=== PATIENT | female | born 1985 | race Caucasian/White ===

== ENCOUNTER 2021-07-17 17:00 | Emergency (ER) | payer OTHER, SELFPAY ==
[2021-07-17 17:10] VITALS: BP 116/71; PULSE 58; RESP 18; TEMP 37.1; O2SAT 100
--- NOTE | 2021-07-17 17:10 | ED.URI ---
HPI - URI/Sore Throat General Chief Complaint: Upper Respiratory Infection Stated Complaint: Sore Throat,Headache Time Seen by Provider: 07/17/21 17:10 Source: patient and RN notes reviewed Mode of arrival: ambulatory Limitations: no limitations History of Present Illness HPI Narrative: 36-year-old female presents to the [facility] with complaints of a headache for 2 days, headache 1 day. No treatment prior to arrival. States that she has 2 kids that are sick at home, they are negative rapid Covid, PCR's are pending. 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 Has felt feverish. Denies any cough, chest congestion, abdominal pain or chest pain MD elicited complaint: sore throat Related Data Home Medications Medication Instructions Recorded Confirmed sertraline 200 mg PO DAILY 07/17/21 07/17/21 Allergies Allergy/AdvReac Type Severity Reaction Status Date / Time guaifenesin Allergy Unknown Unknown Verified 07/17/21 17:24 brompheniramine AdvReac Unknown TACHYCARDIA Verified 07/17/21 17:24 phenylpropanolamine AdvReac Unknown TACHYCARDIA Verified 07/17/21 17:24 SPINAL TAP MEDICATION Allergy Unknown Itching Uncoded 07/17/21 17:24 Review of Systems Review of Systems: All systems reviewed & are unremarkable except as noted in HPI and below Constitutional: Constitutional: Reports no additional constitutional complaints Eyes: Eyes: Reports no additional eye complaints ENT: Reports as per HPI and Reports sore throat Cardiovascular: Cardiovascular: Reports no additional cardiovascular complaints and Denies chest pain Respiratory: Respiratory: Reports no additional respiratory complaints, Denies cough and Denies dyspnea Gastrointestinal: Gastrointestinal: Reports no additional gastrointestinal complaints and Denies abdominal pain Musculoskeletal: Musculoskeletal: Reports no additional musculoskeletal complaints Integumentary/Breasts: Skin/Breast: Reports system reviewed and no additional complaints, except as docu Neurologic: Reports as per HPI and Reports headache(s) Psychiatric: Psychiatric: Reports no additional psychiatric complaints Allergic/Immunologic: Allergic/Immunologic: Reports no additional allergic/immunologic complaints [facility] Past Medical History Medical History (Updated 07/17/21 @ 19:51 by Payton Quach) No significant medical problems Surgical History Surgical History (Updated 07/17/21 @ 19:49 by Payton Quach) Hx of appendectomy Family History Family History Other Hypertension Social History Social History (Updated 07/17/21 @ 19:49 by Payton Quach) Smoking status: Current every day smoker Alcohol intake: current Substance use: never Living arrangements: with family Occupation/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 There is no relevant family history pertinent to the patient complaint. Exam Const: General: healthy appearing, no acute distress and alert Nutritional Appearance: well nourished Orientation/consciousness: patient oriented x3 Limitations: no limitations HENMT: Head: normal to inspection Ears: external ears normal, TM's normal bilaterally and EAC's normal Eyes: Conjunctivae: conjunctivae normal Pupils: Equal, round and reactive pupils present Neck: Neck: normal visual inspection, no lymphadenopathy and no meningeal signs Chest: Chest palpation & inspection: normal inspection of the chest Resp: Effort & Inspection: normal respiratory effort and no use of accessory muscles Auscultation: clear to auscultation bilaterally, no crackles, no rales, no rhonchi and no wheezes Cardio: Rate: regular rate Rhythm: regular rhythm : General: Yes no CV
[2021-07-19 01:27] LABS: SARS-CoV-2 RNA PCR Negative
== END 2021-07-17 17:50 | disposition home or self-care (01) ==
PROVIDERS: Emergency Provider Nurse Practitioner; PCP Family Medicine
DX: J06.9 Acute upper respiratory infection, unspecified (principal); J02.9 Acute pharyngitis, unspecified; Z20.822 Contact with and (suspected) exposure to COVID-19; F17.200 Nicotine dependence, unspecified, uncomplicated
CPT/HCPCS: 87081; 87426; 87880; 99213; C9803; G0463; U0003; U0005

== ENCOUNTER 2021-10-22 13:08 | Emergency (ER) | payer OTHER, SELFPAY ==
--- NOTE | ~2021-10-22 | XR_ITS ---
EXAMINATION: XR chest 2V DATE: 10/22/2021 15:06 INDICATION: Cough and shortness of breath. COVID-19 pneumonia. TECHNIQUE: Frontal and lateral views of the chest were obtained. COMPARISON: CT abdomen and pelvis 04/21/2018 FINDINGS: The chest demonstrates clear lungs without pneumonia, pleural effusion, or pneumothorax. Th e heart size is normal. There are surgical clips in the abdomen. IMPRESSION: 1. No acute cardiopulmonary disease. Reviewed, dictated and finalized at location A. GE CLIPPER
[2021-10-22 13:59] VITALS: BP 120/76; PULSE 64; RESP 20; TEMP 36.7; O2SAT 100
[2021-10-22 14:07] VITALS: PULSE 64; RESP 20; O2SAT 100
--- NOTE | 2021-10-22 15:05 | ED.GENADULT ---
HPI - General Adult General Chief complaint: Upper Respiratory Infection Stated complaint: fatigue,cough Source: patient Mode of arrival: ambulatory Limitations: no limitations History of Present Illness HPI narrative: Patient presents for evaluation of respiratory symptoms since 10/20/2021. Symptoms include nonproductive cough, sensation that she cannot breath, shortness of breath and fatigue. She denies any fever, chills, nausea, vomiting. She has experienced diarrhea. Her has some sinus symptoms but those resolved without intervention. She has received COVID vaccination. 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 She smokes 1/4 ppd. No additional complaints or concerns. Related Data Home Medications Medication Instructions Recorded Confirmed sertraline 200 mg PO DAILY 07/17/21 10/22/21 Allergies Allergy/AdvReac Type Severity Reaction Status Date / Time guaifenesin Allergy Unknown Unknown Verified 10/22/21 13:57 brompheniramine AdvReac Unknown TACHYCARDIA Verified 10/22/21 13:57 phenylpropanolamine AdvReac Unknown TACHYCARDIA Verified 10/22/21 13:57 SPINAL TAP MEDICATION Allergy Unknown Itching Uncoded 07/17/21 17:24 Review of Systems Review of Systems: CONSTITUTIONAL: Fatigue. Denies fever, chills, sweating EYES: Denies visual changes, redness, or discharge. ENT: Denies rhinorrhea, congestion, sore throat, or otalgia. CARDIOVASCULAR: Denies chest pain, palpitations, or edema. RESPIRATORY: Reports cough, shortness of breath and sensation that she cannot catch a deep breath GASTROINTESTINAL: Reports diarrhea. Denies abdominal pain, nausea, vomiting GENITOURINARY: Denies dysuria or hematuria. SKIN: Denies rash or itching. MUSCULOSKELETAL: Denies back pain, joint pain, or myalgia. NEUROLOGIC: Denies headache, numbness, dizziness, or weakness. PSYCHIATRIC: Denies anxiety or depression. 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 HEAD: Normocephalic, atraumatic. EYES: PERRLA and EOMI. ENT: Nares clear, no rhinorrhea or epistaxis. Mucous membranes moist. Oropharynx without tonsillar hypertrophy exudate or other lesions. Bilateral TMs pearly weber nonbulging NECK: Supple. No adenopathy or masses. No carotid bruits or JVD CHEST: Clear to auscultation. No respiratory distress. No wheezes rales or rhonchi HEART: Regular rate and rhythm. No murmur heard. Normal peripheral pulses. ABDOMEN: Soft, nontender, nondistended, normal active bowel sounds. EXTREMITIES: Normal range of motion. No edema. SKIN: Warm, dry, no rash. NEURO: No focal deficits. Alert and oriented x3. PSYCH: Normal mood and affect. Course Course Emergency Course: This is a 36-year-old female present complaints of respiratory symptoms. Covid was positive. Chest x-ray was negative. Saturations are 98% to 100% on room air. Heart rate was in the 60s. Patient will purchase pulse oximeter and monitor heart rate and O2 sats at home. She did report shortness of breath and was concerned about this. I did offer to transfer her to the ER, which she declined. I think it would be unlikely that
== END 2021-10-22 15:38 | disposition home or self-care (01) ==
PROVIDERS: Emergency Provider Nurse Practitioner; PCP Family Medicine
DX: U07.1 COVID-19 (principal); F17.200 Nicotine dependence, unspecified, uncomplicated
CPT/HCPCS: 71046; 87426; 87804; 99213; C9803; G0463

== ENCOUNTER 2022-02-20 17:23 | Emergency (ER) | payer OTHER, SELFPAY ==
--- NOTE | 2022-02-20 17:27 | ED.URI ---
HPI - URI/Sore Throat General Chief Complaint: Upper Respiratory Infection Stated Complaint: CONGESTION/SORE THROAT/STREP EXPOSURE Time Seen by Provider: 02/20/22 17:28 Source: patient, family, RN notes reviewed and old records reviewed Mode of arrival: ambulatory Limitations: no limitations History of Present Illness HPI Narrative: 36-year-old female presents to the [facility] with complaints of headache, sinus pain and pressure, bilateral ear pressure, dry cough, nasal congestion for the last 1-1/2 weeks. Called her primary care provider was prescribed amoxicillin on February 14, 6 days ago, patient reports that she is just not getting any better. Has tried taking Zyrtec, Tylenol and using a [place] pot with minimal relief. MD elicited complaint: cough, sore throat, rhinorrhea, nasal congestion and sinus pain Pertinent past history: sinusitis Related Data Home Medications Medication Instructions Recorded Confirmed sertraline 200 mg PO DAILY 07/17/21 02/20/22 amoxicillin 02/20/22 02/20/22 Allergies Allergy/AdvReac Type Severity Reaction Status Date / Time guaifenesin Allergy Unknown Unknown Verified 02/20/22 17:33 brompheniramine AdvReac Unknown TACHYCARDIA Verified 02/20/22 17:33 phenylpropanolamine AdvReac Unknown TACHYCARDIA Verified 02/20/22 17:33 SPINAL TAP MEDICATION Allergy Unknown Itching Uncoded 02/20/22 17:33 Review of Systems Review of Systems: All systems reviewed & are unremarkable except as noted in HPI and below Constitutional: Constitutional: Reports no additional constitutional complaints, Denies chills, Denies fever(s) and Denies headache(s) Eyes: Eyes: Reports no additional eye complaints ENT: Reports as per HPI, Denies vertigo, Denies dizziness, Denies headache(s), Reports nasal congestion and Reports sore throat Cardiovascular: Cardiovascular: Reports no additional cardiovascular complaints, Denies chest pain, Denies syncope, Denies rapid heart rate and Denies dyspnea Respiratory: Respiratory: Reports as per HPI, Reports cough (Dry), Denies dyspnea and Denies wheezing Gastrointestinal: Gastrointestinal: Reports no additional gastrointestinal complaints, Denies abdominal pain, Denies diarrhea, Denies nausea and Denies vomiting Musculoskeletal: Musculoskeletal: Reports no additional musculoskeletal complaints and Denies numbness Integumentary/Breasts: Skin/Breast: Reports system reviewed and no additional complaints, except as docu Neurologic: Reports system reviewed and no additional complaints, except as documented, Denies vertigo, Denies dizziness, Denies syncope, Denies headache(s), Denies focal weakness and Denies numbness Psychiatric: Psychiatric: Reports no additional psychiatric complaints Allergic/Immunologic: Allergic/Immunologic: Reports no additional allergic/immunologic complaints and Denies wheezing PMFSH Past Medical History Medical History No significant medical problems Surgical History Surgical History H/O gynecological procedure Laprascopic endometriosis X3 D&C History of cholecystectomy History of tubal ligation Hx of appendectomy Family History Family History Other Diabetes mellitus Hypertension Social History Social History Smoking status: Current every day smoker Alcohol intake: current Substance use: never 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 There is no relevant family history pertinent to the patient complaint. Exam Const: Gen
[2022-02-20 17:29] VITALS: BP 129/84; PULSE 71; RESP 12; TEMP 36.5; O2SAT 100
== END 2022-02-20 18:00 | disposition home or self-care (01) ==
PROVIDERS: Emergency Provider Nurse Practitioner; PCP Family Medicine
DX: J32.9 Chronic sinusitis, unspecified (principal); F17.200 Nicotine dependence, unspecified, uncomplicated
CPT/HCPCS: 87081; 87804; 87880; 99213; G0463

== ENCOUNTER 2022-09-02 09:40 | Emergency (ER) | payer OTHER, SELFPAY ==
--- NOTE | ~2022-09-02 | XR_ITS ---
EXAMINATION: XR chest 2V DATE: 09/02/2022 10:08 INDICATION: Shortness of breath TECHNIQUE: PA and lateral views of the chest are obtained. COMPARISON: 10/22/2021 FINDINGS: The lungs are free of acute opacities. No pleural effusion or pneumothorax. The cardiomedia stinal silhouette is normal. There is mild thoracic spondylosis. Surgical clips in the right upper qu adrant are likely from prior cholecystectomy. IMPRESSION: 1. No acute cardiopulmonary abnormality. Reviewed, dictated and finalized at location A. THERAPIST
--- NOTE | 2022-09-02 09:44 | ED.URI ---
HPI - URI/Sore Throat General Chief Complaint: Upper Respiratory Infection Stated Complaint: cough, sore thoat, chest pain, fever Time Seen by Provider: 09/02/22 09:44 Source: patient Mode of arrival: ambulatory Limitations: no limitations History of Present Illness HPI Narrative: Ms. Argueta is a 37-year-old female patient presenting to clinic today with complaints of chest pain, shortness of breath, sore throat, cough, and fever x2 days. She reports that a lot of her kids and class has been dropping like flies. 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 MD elicited complaint: fever, cough, sore throat, nasal congestion and other (Chest pain) Related Data Home Medications Medication Instructions Recorded Confirmed sertraline 100 mg tablet 200 mg PO DAILY 07/17/21 02/21/22 phentermine 37.5 mg tablet mg 09/02/22 topiramate 25 mg tablet mg 09/02/22 Allergies Allergy/AdvReac Type Severity Reaction Status Date / Time guaifenesin Allergy Unknown Unknown Verified 02/21/22 10:34 brompheniramine AdvReac Unknown TACHYCARDIA Verified 02/21/22 10:34 phenylpropanolamine AdvReac Unknown TACHYCARDIA Verified 02/21/22 10:34 SPINAL TAP MEDICATION Allergy Unknown Itching Uncoded 02/21/22 10:34 Review of Systems Review of Systems: Pertinent positives per HPI. Patient denies any rash, headache, visual changes, dizziness, palpitations, nausea, vomiting, diarrhea, constipation, abdominal pain, or any urinary issues. 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 There is no relevant family history pertinent to the patient complaint. Exam Narrative: General: Well-developed, well nourished, in no apparent distress Head: Normocephalic, atraumatic Eyes: Pupils equally round and reactive to light bilaterally, EOM intact, sclera and conjunctive clear, no discharge, lids normal Ears: TMs intact and congested, ear canals clear, no drainage, grossly hearing normal. Nose: Nares patent, clear nasal discharge, no inflammation, no sinus tenderness. Mouth: Oral pharynx without lesions or masses, good dentition, MMM. Oropharynx red Neck: Supple, trachea midline, no enlargement of anterior or posterior cervical nodes, no thyroid masses or goiter palpable. Cardio: Regular rate and rhythm, s1 and s2 normal, no murmur appreciated. Resp: Clear to auscultation bilaterally, no rhonchi, rales, wheezing or rubs Course Course Emergency Course: Portions of this record may have been created with voice recognition software. Level of Care: Express Care Visit Vital Signs Vital signs: Vital Signs Temperature 37.2 C 09/02/22 09:57 Pulse Rate 106 H 09/02/22 09:57 Respiratory Rate 16 09/02/22 09:57 Blood Pressure 108/89 09/02/22 09:57 Pulse Oximetry 98 09/02/22 09:57 Temperature 37.2 C 09/02/22 09:57 Pulse Rate 106 H 09/02/22 09:57 Respiratory Rate 16 09/02/22 09:57 Blood Pressure 108/89 09/02/22 09:57 Pulse Oximetry 98 09/02/22 09:57 Vital signs reviewed
[2022-09-02 09:57] VITALS: BP 108/89; PULSE 106; RESP 16; TEMP 37.2; O2SAT 98
== END 2022-09-02 10:39 | disposition home or self-care (01) ==
PROVIDERS: Emergency Provider Nurse Practitioner Family; PCP Family Medicine
DX: J10.1 Influenza due to other identified influenza virus with other respiratory manifestations (principal)
CPT/HCPCS: 71046; 87804; 99213; G0463

== ENCOUNTER 2023-11-19 08:31 | Outpatient (CLI) | payer OTHER, SELFPAY ==
--- NOTE | 2023-11-20 17:34 | WPDHOMESLEEP ---
Sleep Study - Home Unattended Date of Study: 11/19/23 Ordering Provider: Magdiel Patrick MD Interpreting Provider: Opal Polo MD Home Sleep Study Type: Watch PAT Height: 1.59 m Weight: 79.379 kg Body Mass Index: 31.5 Neck Circumference (inches): 15 [place]: 14 Reason for Sleep Study Hypersomnolence; fragmented sleep, waking at night, sleepiness in the day Family history of sleep apnea; her father uses CPAP Sleep History Pili Argueta is a 38-year-old woman with poor sleep since giving to her 7-year-old daughter. She has hypertension, depression, and acid reflux. She has not been able to sleep through the night, at best gets 5 hours of sleep. She rarely awakens from sleep short of breath. She constantly wakes at night with heartburn, belching or coughing.??She constantly snores,and constantly snores loudly enough that others complain. She constantly has trouble sleeping when she has a cold. She rarely wakes up gasping for breath during the night. She constantly has breathing problems at night. She frequently sweats excessively at night. She rarely notices her heart pounding or beating irregularly during the night. She frequently falls asleep during the day. She frequently falls asleep involuntarily, occasionally falls asleep while driving. She occasionally experiences loss of muscle tone with strong emotion. She frequently feels paralyzed on waking or falling asleep. She rarely experiences vivid dreams upon waking or falling asleep. She never feels afraid of going to sleep. She rarely has nightmares. She frequently recalls her dreams. She constantly has thoughts racing through her mind. She occasionally feels sad or depressed. She constantly feels anxiety. She rarely notices parts of her body jerk. She rarely kicks during the night. She rarely feels crawling or aching feelings in her legs. She rarely feels leg pain at night. She rarely has morning jaw pain, and never grinds her teeth at night. She frequently feels bothered by pain during the day, is rarely awakened by pain during the night. She occasionally wakes up feeling stiff in the morning, occasionally wakes feeling sore or achy in the morning. She frequently awakens with pain in her neck, spine, or joints. 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 If she wakes at night, she lets the dog outside, washes dishes, packs lunches, switches laundry, or performs other housework. She also goes to urinate at night. She wakes at 6:00 a.m.. On weekends, bedtime is later, 11:00, waking later, 9:00 a.m. She takes naps on weekends. She is drowsy for 3 hours after waking. She feels better in the evenings compared to other times of day. She gained 15-20 lb in the last year. Habits:??Tobacco: quit cigarettes 7 months ago Caffeine: 1 serving per day. Alcohol: 3-4 servings per week Recreational substances: none PMFSH Past Medical History Medical History (Updated 11/20/23 @ 18:21 by Opal Polo MD) Anxiety and depression Chronic pain hips, back, arthritis Heart & renal disease, hypertensive benign with chronic kidney disease Hypertension Pre-diabetes Surgical History Surgical History H/O gynecological procedure Laprascopic endometriosis X3 D&C History of cholecystectomy History of tubal ligation Hx of appendectomy Family History Family History Father Diabetes mellitus Hypertension Heart problem Grandparent AA (alcohol abuse) Heart problem Grandparent Colon abnormality Daughter Asthma, Onset Age: 20 Daughter Asthma Social History Social History (Updated 11/20/23 @ 18:09 by Opal Polo MD) Smoking status: Former smoker Alcohol intake: current
[2023-11-20 17:37] VITALS: BMI 31.5
== END 2023-11-20 07:30 | disposition home or self-care (01) ==
LOC: ANHCSM 08:34
PROVIDERS: PCP Emergency Medicine; Visit Provider Emergency Medicine
DX: G47.33 Obstructive sleep apnea (adult) (pediatric) (principal); G47.10 Hypersomnia, unspecified
CPT/HCPCS: 95800

== ENCOUNTER 2024-01-08 07:30 | Outpatient (RCR) | payer OTHER, SELFPAY ==
--- NOTE | 2023-11-21 08:34 | OTOPEVAL1 ---
Assessment and note entered by Swapnil Fitzgerald, EDGAR/Leroy, CHT Evaluation Information Assessment Status Evaluation Diagnosis Bilateral carpal tunnel syndrome Subjective Information Patient reports experiencing carpal tunnel symptoms for years . She is right handed. Reports right is worse than left. Reports difficulties with ADLs and household tasks, such as pushing a vacuum. Reports pain and parethesias are intermittent. 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 Assessment OT Clinical Summary Patient referred to OT with dx of bilateral carpal tunnel syndrome. She presents with preserved sensation in the median nerve distribution of bilateral hands. Gross electric blanket wirer strength is WFL. Pinch strengths are impaired. No muscle wasting noted in the thenar eminence. She reports intermittent pain and paresthesia in the hands that restrict hand use during ADLs, household tasks, and work. Skilled OT indicated for education on nerve compression causes and treatment, splinting, modalities, manual therapy, therapeutic exercise, and HEP instruction to facilitate reduced pain and improved functional strength of bilateral hands. Plan of Care Interventions Therapeutic Exercise,Manual Therapy,Therapeutic Activities,Hot Pack/Cold Pack,Check Out for Orthotic,Ultrasound,Paraffin OT Services Indicated Yes Treatment Frequency and 2x/week for 8 visits Duration These treatments will address the objective and functional deficits as defined above. The patient will be advanced safely and appropriately in order for the patient to progress towards his/her prior level of function. Additional exercises will be introduced and as well as a comprehensive home exercise program upon discharge, if needed, ?to ensure carryover of functional gains achieved in the clinic. This treatment plan has been reviewed and agreement upon by the patient.
--- NOTE | 2023-11-21 08:35 | OPREHPOC ---
Outpatient Therapy Plan of Care This is a Multidisciplinary Plan of Care that may contain components documented by all disciplines (PT, OT, and ST.) OT Problem 1 OT Problem #1 Knowledge Deficit OT Goal 1 Goal 1. Patient to be independent with instructed materials. 2. Patient to be complaint with splint wearing schedule. Target Visit 8 OT Problem 2 OT Problem #2 Pain OT Goal 1 Goal 1. Patient to report reduced bilateral hand pain during ADLs to 2/10 or less at worst . 2. Be able to complete putty HEP without reports of pain or paresthesia. Target Visit 8 OT Problem 3 OT Problem #3 Impaired Strength OT Goal 1 Goal 1. Increase palmar pinch strengths of the right hand to 8 lbs. OT Problem 4 OT Problem #4 Impaired Flexibility OT Goal 1 Goal 1. Be able to complete Reverse Phalen's test without onset of paresthesia. Target Visit 8
--- NOTE | 2023-12-09 10:13 | PCPTNOTE ---
Patient Cancelled today's evaluation secondary to sick Children.
--- NOTE | 2023-12-11 13:23 | PCOTNOTE ---
Patient did not show up for scheduled appointment this date. Called patient and she did not answer.
--- NOTE | 2023-12-18 07:56 | PCOTNOTE ---
Patient did not show up for scheduled appointment this date. Called patient who reports she didn't get a reminder text about the appointment. Informed her that we have never done that. Reminded her of her appointment Saturday.
--- NOTE | 2023-12-23 07:57 | PCOTNOTE ---
Patient did not show up for scheduled appointment this date. Called patient who said she is in [place] and didn't realize she had an appointment. Informed her that she has violated the attendance policy and that we are going to cancel her remaining appointments. She asked if we could keep her re-evaluation to discuss options. Agreed to do that.
--- NOTE | 2023-12-26 08:27 | OTOPPROG ---
Assessment and note entered by EDGAR Cao/Leroy, CHT Progress Update 12/26/23 Diagnosis Bilateral carpal tunnel syndrome Subjective Information Patient reports improvement in her symptoms when she is consistent with her exercises. Continues to report intermittent pain and paresthesia in bilateral hands, reporting not a huge change in the intensity or frequency of her symptoms. She reports she is unable to wear the immobilizers at night, feeling like wearing both are suffocating and she can't get comfortable. Patient unfortunately has not had the best therapy attendance. Discussed this with the patient today that optimal outcomes occur if she's able to be consistent. She reports she is worried about getting a huge bill at the end of this, but understands that her symptoms will not improve without intervention. We agreed to schedule 3 weeks of visits. Also discussed modifying her immobilizer schedule, alternating the braces each night. Also advised to begin wearing them during the day as much as she can to force her to rest the wrists. Assessment OT Clinical Summary Patient referred to OT with dx of bilateral carpal tunnel syndrome. She presents today for reassessment. She unfortunately has only attended therapy twice in the last month, thus there has been minimal progress. She does note that when she does her HEP she has reduced symptoms that day, but she is very inconsistent and noncompliant with wearing her immobilizers. Discussed at length the importance of compliance with therapy and she agrees she needs to do better. Continued skilled OT indicated for education on nerve compression causes and treatment, splinting, modalities, manual therapy, therapeutic exercise, and HEP instruction to facilitate reduced pain and improved functional strength of bilateral hands. Plan of Care Interventions Therapeutic Exercise,Manual Therapy,Therapeutic Activities,Hot Pack/Cold Pack,Check Out for Orthotic/Pr,Ultrasound,Paraffin OT Services Indicated Yes Treatment Frequency and 2x/week for 6 visits Duration These treatments will address the objective and functional deficits as defined above. The patient will be advanced safely and appropriately in order for the patient to progress towards his/her prior level of function. Additional exercises will be introduced and as well as a comprehensive home exercise program upon discharge, if needed, ?to en
--- NOTE | 2023-12-26 08:27 | OPREHPOC ---
Outpatient Therapy Plan of Care This is a Multidisciplinary Plan of Care that may contain components documented by all disciplines (PT, OT, and ST.) OT Problem 1 OT Problem #1 Knowledge Deficit OT Goal 1 Goal 1. Patient to be independent with instructed materials. 2. Patient to be complaint with splint wearing schedule. ---OT POC UPDATE 12/26/23--- 1. Met 2. Not met, continue to enforce schedule and emphasize importance Target Visit 8 OT Problem 2 OT Problem #2 Pain OT Goal 1 Goal 1. Patient to report reduced bilateral hand pain during ADLs to 2/10 or less at worst . 2. Be able to complete putty HEP without reports of pain or paresthesia. ---OT POC UPDATE 12/26/23--- 1. Not met 2. Not addressed due to lack of attendance Target Visit 8 OT Problem 3 OT Problem #3 Impaired Strength OT Goal 1 Goal 1. Increase palmar pinch strengths of the right hand to 8 lbs. ---OT POC UPDATE 12/26/23--- 1. Not met Target Visit 8 OT Problem 4 OT Problem #4 Impaired Flexibility OT Goal 1 Goal 1. Be able to complete Reverse Phalen's test without onset of paresthesia. ---OT POC UPDATE 12/26/23--- 1. Not met Target Visit 8
--- NOTE | 2024-02-17 11:34 | OTOPDC ---
Assessment and note entered by Swapnil Fitzgerald, OTR/L, CHT OT D/C 02/17/24 OT Clinical Summary Patient was being seen at our clinic for dx of bilateral carpal tunnel syndrome. Unfortunately attendance has been an issue since beginning therapy. She has not been seen since 01/08/24 and has not shown for 2 appointments after that. We are unable to get a hold of her. Overall her progress was limited due to poor attendance and compliance. D/C OT at this time.
== END 2024-02-17 13:05 | disposition home or self-care (01) ==
LOC: ANHOT 07:30
PROVIDERS: PCP Emergency Medicine; Visit Provider Emergency Medicine
DX: G56.03 Carpal tunnel syndrome, bilateral upper limbs (principal)
CPT/HCPCS: 97018; 97035; 97110; 97140; 97165; 99199

== ENCOUNTER 2024-03-26 14:54 | Outpatient (CLI) | payer OTHER, SELFPAY ==
[2024-03-27 03:12] LABS: Thyroid Stimulating Hormone Reflex 0.958 uIU/mL (0.465-4.68)
== END 2024-03-26 14:55 | disposition home or self-care (01) ==
LOC: ANHGOSHLAB 14:54
PROVIDERS: PCP Emergency Medicine; Visit Provider Emergency Medicine
DX: R53.82 Chronic fatigue, unspecified (principal)
CPT/HCPCS: 36415; 84443

== ENCOUNTER 2024-10-30 17:47 | Emergency (ER) | payer BC, SELFPAY ==
--- NOTE | 2024-10-30 18:08 | ED.URI ---
HPI - URI/Sore Throat General Chief Complaint: Upper Respiratory Infection Stated Complaint: cough,congestion Time Seen by Provider: 10/30/24 18:07 Source: patient Mode of arrival: ambulatory Limitations: no limitations History of Present Illness HPI Narrative: Pili is a 39-year-old female patient presenting to the clinic today with complaints of cough, sinus congestion, sore throat, and chest congestion x2 days. Is coughing up green sputum. Denies any known fever, chills, or body aches. 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 MD elicited complaint: sore throat and nasal congestion Related Data Home Medications ?Medication ?Instructions ?Recorded ?Confirmed ?Last Taken ?Type phentermine 37.5 mg tablet mg 10/30/24 Unknown History Allergies Allergy/AdvReac Type Severity Reaction Status Date / Time guaifenesin Allergy Unknown Unknown Verified 03/26/24 14:14 brompheniramine AdvReac Unknown TACHYCARDIA Verified 03/26/24 14:14 phenylpropanolamine AdvReac Unknown TACHYCARDIA Verified 03/26/24 14:14 SPINAL TAP MEDICATION Allergy Unknown Itching Uncoded 03/26/24 14:14 Review of Systems Review of Systems: Pertinent positives per HPI. Patient denies any fever, chills, rash, headache, visual changes, dizziness, chest pain, palpitations, nausea, vomiting, diarrhea, constipation, abdominal pain, or any urinary issues. [facility] Past Medical History Medical History Anxiety and depression Hypertension Chronic pain hips, back, arthritis Heart & renal disease, hypertensive benign with chronic kidney disease Pre-diabetes Surgical History Surgical History H/O gynecological procedure Laprascopic endometriosis X3 D&C History of cholecystectomy History of tubal ligation Hx of appendectomy Family History Family History Father Diabetes mellitus Hypertension Heart problem Grandparent AA (alcohol abuse) Heart problem Grandparent Colon abnormality Daughter Asthma, Onset Age: 20 Daughter Asthma Social History Social History Smoking status: Former smoker Alcohol intake: current Alcohol use details: 3-4 servings per week Substance use: never Do You Feel Safe in your Home?: Yes Lack of Transportation: No Lack of Food: Never True Current Housing: I Have Housing Concerned About Future Housing: No Difficulty Paying Gas/Electric Bills: No Difficulty Paying for Meds: No Currently Unemployed: No Education: Master's Degree or Higher Living arrangements: with family Occupation/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 There is no relevant family history pertinent to the patient complaint. Exam Narrative: General: Well-developed, well nourished, in no apparent distress Head: Normocephalic, atraumatic Eyes: Pupils equally round and reactive to light bilaterally, EOM intact, sclera and conjunctive clear, no discharge, lids normal Ears: TMs intact and congested, ear canals clear, no drainage, grossly hearing normal. Nose: Nares patent, clear nasal discharge, mild inflammation, no sinus tenderness. Mouth: Oral pharynx red without lesions or masses, good dentition, MMM. Postnasal drip Neck: Supple, trachea midline, no enlargement of anterior or posterior cervical nodes, no thyroid masses or goiter palpable. Cardio: Regular rate and rhythm, s1 and s2 normal, no murmur appreciated. Resp: Clear to auscultation bilaterally, no rhonchi, rales, wheezing or rubs Course Course Emergency Course: Portions of this record may have been created with voice recognition software. Level of Care: Express Care Visit Vital Signs Vital signs: Vital signs reviewed MDM - URI/Sore Throat MDM Narrative Medical decision making narrative: At the time of visit patient is resting comfortably on the exam table. Patient appears to be nontoxic. Labs: COVID, influenza, and strep test were all negative in the clinic today. We will send strep for culture. Plan: I suspect patient has URI with cough and congestion/pharyngitis. Supportive measures were discussed with the patient and they voiced understanding discharge instructions and agrees to treatment plan. Return precautions reviewed Differential Diagnosis Differential diagnosis: Likely upper respiratory infection, otitis media, sinusitis, viral infection, bronchitis, influenza, pharyngitis and other (COVID) Discharge Plan Discharge Clinical Impression: URI with cough and congestion, Pharyngitis Patient Disposition: Home, Self-Care Condition: Stable Instructions: Antibiotic Form, Pharyngitis (ED), Viral Syndrome (ED), Cold Symptoms (ED) Additional Instructions: COVID, influenza, and strep test were all negative in the clinic today. We will send strep for culture if this comes back positive we will contact you and place you on antibiotics at that time. Take prescription medications only as prescribed-albuterol inhaler and prednisone Increase fluids and stay well hydrated Tylenol/motrin for pain/fever Flonase and OTC antihistamines as directed Vicks vapor rub to open sinuses Sinus rinses for congestion Cepacol spray, cough drops, throat lozenges, warm tea with honey/lemon, gargle salt water to soothe throat BRAT diet for diarrhea Clear liquids x 24 hours then advance as tolerated for nausea/vomiting Go to the ED if you develop a worsening in your condition- high fever not controlled by Tylenol or Motrin, dehydration, weakness, lethargy, shortness of breath, or chest pain. Follow up with your PCP in 3-5 days if symptoms persist. Patient Language: Syriac Prescriptions: New prednisone 20 mg tablet 40 mg PO DAILY 5 Days Qty: 10 0RF albuterol sulfate 90 mcg/actuation HFA aerosol inhaler 2 puff inhalation Q4-6H PRN (Reason: shortness of breath or wheezing) 30 Days Qty: 8.5 0RF No Action phentermine 37.5 mg tablet sertraline 100 mg tablet 200 mg PO QHS Qty: 180 0RF Rx Instructions: LAST REFILL, NEEDS APPOINTMENT Follow-up/Referrals: UNKNOWN,DOCTOR [Non-Staff] - Time of Disposition: 18:56 Quality NIHSS Nursing Documentation ED NIHSS nursing documentation: reviewed/agree
[2024-10-30 18:22] VITALS: BP 131/80; PULSE 85; RESP 18; TEMP 37.1; O2SAT 99
[2024-10-30 19:33] LABS: EDCOVIDSCREEN Negative (Negative); EDINFLUASCREEN Negative (Negative); EDINFLUBSCREEN Negative (Negative); EDSTREPNEGPOS1 Negative (Negative)
== END 2024-10-30 19:05 | disposition home or self-care (01) ==
PROVIDERS: Emergency Provider Nurse Practitioner Family; PCP Emergency Medicine
DX: J06.9 Acute upper respiratory infection, unspecified (principal); I10 Essential (primary) hypertension; Z87.891 Personal history of nicotine dependence; Z20.822 Contact with and (suspected) exposure to COVID-19
CPT/HCPCS: 87081; 87426; 87804; 87880; 99213; G0463

== ENCOUNTER 2024-11-06 08:28 | Inpatient (IN) | payer BC, SELFPAY ==
--- NOTE | ~2024-11-06 | XR_ITS ---
EXAMINATION: XR abdomen/kub 1V DATE: 11/07/2024 07:31 INDICATION: Left ureteral stone. TECHNIQUE: A supine view of the abdomen on 2 radiographs was obtained. COMPARISON: CT abdomen and pelvis 11/06/2024 FINDINGS: There are no dilated loops of bowel. There is a left internal ureteral stent in expected po sition. There is a 4 mm stone in proximal left ureter. There are phleboliths in left pelvis. IMPRESSION: 1. 4 mm stone in proximal left ureter with left internal ureteral stent in expected position. Reviewed, dictated and finalized at location A. ACE FEEDER IMPRESSION: 1. 4 mm stone in proximal left ureter with left internal ureteral stent in expe cted position.
--- NOTE | ~2024-11-06 | CT_ITS ---
CT abdomen pelvis w con Ordering provider: Hayes Klein PA-C History: 39 years Female with . L abd pain, recent ureter stent . Comparison: None. Technique: CT abdomen and pelvis with IV and without oral contrast. Automated exposure control and it erative reconstruction technique were employed. The dose-length product was 566.43 mGy-cm. None. MLO Omnipaque 350 was given IV. Findings: VISUALIZED LOWER CHEST: Dependent atelectatic changes. UPPER ABDOMINAL ORGANS: Liver: Fat infiltration. Hepatomegaly. Gallbladder: Status post cholecystectomy. Spleen: Normal. Stomach/duodenum: Normal. Pancreas: Normal. Adrenals: Normal. Kidneys: Multiple small right cysts. Left hydronephrotic changes with double-J stent. Stone in the le ft kidney upper pole. Tiny cysts in the left kidney. Stone in the left upper ureter. PELVIC ORGANS: The bladder is normal. BOWEL AND MESENTERY: Colon: No evidence of diverticulitis. Fecal material is loaded in the colon suggestive of constipatio n. Appendix is not demonstrated. Small Bowel: Normal. No obstruction. Peritoneum/mesentery: No free air or free fluid. No mesenteric lymphadenopathy. RETROPERITONEUM: Normal aorta. No retroperitoneal lymphadenopathy. MUSCULOSKELETAL: Superficial soft tissues: Tiny fat-containing umbilical hernia. The superficial soft tissues are norm al. Bones: Normal spine. IMPRESSION: 1. No evidence of appendicitis, diverticulitis or intestinal obstruction. 2. Left double-J stent with left upper ureter stone and left kidney upper pole stone. Left hydroneph rotic changes. Bilateral kidney cysts. 3. Constipation. 4. Hepatomegaly with Fat infiltration Reviewed, dictated and finalized at location A. ERCIAL BAKING TEACHER IMPRESSION: 1. No evidence of appendicitis, diverticulitis or intestinal obstruction. 2. Left double-J stent with left upper ureter stone and left kidney upper pole stone. Left hydronephrotic changes. Bilateral kidney cysts. 3. Constipation. 4. Hepatomegaly with Fat infiltration
[2024-11-06 08:32] VITALS: BP 154/99; RESP 16; TEMP 36.5; O2SAT 98
[2024-11-06 08:47] LABS: Basophils Percent Auto 0.2 % (0.2-1.2); Eosinophils Absolute Auto 0.1 K/mm3 (0-0.3); Eosinophils Percent Auto 0.7 % (0-4.4); Immature Granulocyte Percent A 1.1 % (0-0.5); Lymphocytes Absolute Auto 2.24 K/mm3 (0.9-3.2); Mean Corpuscular HGB Conc 32.6 g/dl (32-36); Mean Platelet Volume 9.1 fl (7.4-10.4); Monocytes Absolute Auto 0.5 K/mm3 (0.1-0.6); Monocytes Percent Auto 2.6 % (2.6-8.5); Neutrophils Absolute Auto 15.6 K/mm3 (1.3-6.7); Neutrophils Percent Auto 83.4 % (45.5-73.1); Platelet Count Result 400 k/mm3 (150-375); Red Blood Count 5.17 M/mm3 (4.2-5.4); Red Cell Distribution Width 13.2 % (11.5-14.5); White Blood Count 18.7 K/mm3 (4.5-10.0)
[2024-11-06 09:04] LABS: Alanine Aminotransferase 57 U/L (6-35); Albumin Level 4.7 g/dL (3.5-5.1); Alkaline Phosphatase 133 U/L (38-126); Anion Gap 10 mmol/L (4-12); Aspartate Amino Transferase 30 U/L (14-36); Bilirubin,Total 0.5 mg/dL (0.2-1.3); Blood Urea Nitrogen 16 mg/dL (7-17); Calcium 9.8 mg/dL (8.4-10.2); Carbon Dioxide 26 mmol/L (22-30); Chloride 101 mmol/L (98-107); Estimated CRCL calculation 114 ml/min; Estimated Glomerular Filt Rate > 60; Glucose 136 mg/dL (65-110); Potassium 4.3 mmol/L (3.4-5.0); Sodium 137 mmol/L (137-145)
[2024-11-06 09:15] LABS: BEDSIDEPREGUCG Negative (Negative)
[2024-11-06 09:21] LABS: Platelet Estimate Increased (Adequate); Schistocytes None Seen
[2024-11-06 09:28] LABS: Bacteria Urine None Seen /hpf; Non Pathogenic Casts 0-2; RBC Urine >100 /hpf (0-2); Squamous Epithelial Cell Urine None Seen /hpf (Few)
[2024-11-06 09:30] LABS: Add Urine Microscopic? YES; Appearance Urine Cloudy (Clear); Bilirubin Urine Negative (Negative); Blood Urine 3+ (Negative); Color Urine Orange (Yellow); Glucose Urine UA Negative (Negative); Ketones Urine Negative (Negative); Leukocyte Esterase Ur 2+ LEU/UL (Negative); Nitrate Urine Negative (Negative); Protein Urine 2+ mg/dL (Negative); Specific Grav Ur 1.018 (1.001-1.035)
--- NOTE | 2024-11-06 09:33 | ED.FEMALEGU ---
HPI - Female Genitourinary General Chief complaint: Urogenital-Female Stated complaint: L side pain 6mm stone stent 11/04 Time Seen by Provider: 11/06/24 08:59 Source: patient Mode of arrival: ambulatory Limitations: no limitations History of Present Illness HPI Narrative: This is a 39-year-old female who presents to the ED for chief complaint of left-sided abdominal pain and flank pain ongoing intermittently over the past week. Patient reports that she was just seen recently at [facility] for 6 mm left-sided kidney stone with concurrent UTI. She had a stent placed and was told to follow-up in clinic. She was just discharged 3 days ago. However now she is having increased pain and nausea and feels like initial onset last week. States the pain radiates from left flank into the left upper abdomen. Denies hematuria. Denies fevers, chills, vomiting. Related Data Home Medications ?Medication ?Instructions ?Recorded ?Confirmed ?Last Taken ?Type phentermine 37.5 mg tablet mg 10/30/24 Unknown History Allergies Allergy/AdvReac Type Severity Reaction Status Date / Time guaifenesin Allergy Unknown Unknown Verified 11/06/24 08:29 brompheniramine AdvReac Unknown TACHYCARDIA Verified 11/06/24 08:29 phenylpropanolamine AdvReac Unknown TACHYCARDIA Verified 11/06/24 08:29 SPINAL TAP MEDICATION Allergy Unknown Itching Uncoded 11/06/24 08:29 Review of Systems Review of Systems: All systems as dictated in HPI [facility] Past Medical History Medical History Anxiety and depression Hypertension Chronic pain hips, back, arthritis Heart & renal disease, hypertensive benign with chronic kidney disease Pre-diabetes Surgical History Surgical History Status post laser lithotripsy of ureteral calculus H/O gynecological procedure Laprascopic endometriosis X3 D&C History of cholecystectomy History of tubal ligation Hx of appendectomy Family History Family History Father Diabetes mellitus Hypertension Heart problem Grandparent AA (alcohol abuse) Heart problem Grandparent Colon abnormality Daughter Asthma, Onset Age: 20 Daughter Asthma Social History Social History Smoking status: Former smoker Alcohol intake: current Drinks per week: 3 Alcohol use details: 3-4 servings per week Substance use: never Do You Feel Safe in your Home?: Yes Lack of Transportation: No Lack of Food: Never True Current Housing: I Have Housing Concerned About Future Housing: No Difficulty Paying Gas/Electric Bills: No Difficulty Paying for Meds: No Currently Unemployed: No Education: Master's Degree or Higher Difficulty w/ Childcare or Family Care: No Living arrangements: with family Occupation/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 HEAD: Normocephalic, atraumatic. EYES: PERRLA and EOMI. ENT: Nares clear, no rhinorrhea or epistaxis. Mucous membranes moist. Oropharynx without tonsillar hypertrophy exudate or other lesions. NECK: Supple. No adenopathy or masses. CHEST: No respiratory distress. Clear to auscultation. No wheezes rales or rhonchi HEART: Regular rate and rhythm. No murmur heard. Normal peripheral pulses. ABDOMEN: Left flank tenderness. Soft, otherwise nontender, nondistended, normal active bowel sounds. MSK: Normal range of motion. No edema. SKIN: Warm, dry, no rash. NEURO: Alert and oriented x4. No focal deficits. PSYCH: Normal mood and affect. Course Consultations Consultation #1: Spoke with Dr. Elizabeth (Urology): We discussed the patient's presentation and he does feel that she needs to be treated for pyelo, but does not feel that she will require any urologic intervention due to the having a good stent in place on the left side. He is recommending oxybutynin for potential irritation but has no other medical recommendations at this time. Vital Signs Vital signs: Vital Signs Temperature 97.7 F 11/06/24 08:32 Respiratory Rate 16 11/06/24 08:32 Blood Pressure 154/99 H 11/06/24 08:32 Pulse Oximetry 98 11/06/24 08:32 Oxygen Delivery Room Air 11/06/24 08:32 Temperature 97.7 F 11/06/24 08:32 Pulse Rate 80 11/06/24 13:40 Respiratory Rate 18 11/06/24 13:40 Blood Pressure 162/96 H 11/06/24 13:40 Pulse Oximetry 98 11/06/24 13:40 Oxygen Delivery Room Air 11/06/24 08:32 MDM - Female Genitourinary MDM Narrative Medical decision making narrative: This is a 39-year-old female who presents to the ED for chief complaint of left flank pain and N/V. Vitals are normal. Exam remarkable for the above. Lab work remarkable for elevated white count of 18.7. Urinalysis is questionable infection with 2+ leuks, 11-20 whites and greater than [address] abdomen pelvis with IV contrast: IMPRESSION: 1. No evidence of appendicitis, diverticulitis or intestinal obstruction. 2. Left double-J stent with left upper ureter stone and left kidney upper pole stone. Left hydronephrotic changes. Bilateral kidney cysts. 3. Constipation. 4. Hepatomegaly with Fat infiltration Presentation consistent with left ureteral stone. Discussed the case with Urology who will consult on the patient. They do not feel that any other urologic intervention is necessary at this time with her normal stent placement. Discussed admission with the hospitalist JONN Gavin who agrees to admit the patient to medical floor. Patient is understanding and agreeable with plan for admission. Lab Data 11/06/24 08:37 11/06/24 08:37 Labs: Lab Results 11/06/24 11/06/24 11/06/24 Range/Units 08:37 08:58 09:00 WBC 18.7 H (4.5-10.0) K/mm3 RBC 5.17 (4.2-5.4) M/mm3 Hgb 15.0 (12.0-15.0) g/dL Hct 46.0 (37.0-47.0) % MCV 89.0 (80-100) fl MCH 29.0 (26-34) pg MCHC 32.6 (32-36) g/dl RDW 13.2 (11.5-14.5) % Plt Count 400 H (150-375) k/mm3 MPV 9.1 (7.4-10.4) fl Immature Gran % (Auto) 1.1 H (0-0.5) % Neut % (Auto) 83.4 H (45.5-73.1) % Lymph % (Auto) 12.0 L (18.3-44.2) % [place] % (Auto) 2.6 (2.6-8.5) % Eos % (Auto) 0.7 (0-4.4) % Baso % (Auto) 0.2 (0.2-1.2) % Lymph # (Auto) 2.24 (0.9-3.2) K/mm3 [place] # (Auto) 0.5 (0.1-0.6) K/mm3 Eos # (Auto) 0.1 (0-0.3) K/mm3 Baso # (Auto) 0.0 (0.0-0.1) K/mm3 Abs Immat Gran (auto) 0.20 H (0.00-0.031) K/mm3 Absolute Neuts (auto) 15.6 H (1.3-6.7) K/mm3 Absolute Nucleated RBC 0.000 (0.0-0.012) K/mm3 Nucleated RBC % 0.0 (0.0-0.2) % Platelet Estimate Increased (Adequate) Schistocytes None seen Sodium 137 (137-145) mmol/L Potassium 4.3 (3.4-5.0) mmol/L Chloride 101 (98-107) mmol/L Carbon Dioxide 26 (22-30) mmol/L Anion Gap 10 (4-12) mmol/L BUN 16 (7-17) mg/dL Creatinine 0.55 L (0.7-1.0) mg/dL Estim Creat Clear Calc 114 ml/min Estimated GFR > 60 (59 - ) Glucose 136 H (65-110) mg/dL Lactic Acid (0.7-2.0) mmol/L Calcium 9.8 (8.4-10.2) mg/dL Total Bilirubin 0.5 (0.2-1.3) mg/dL AST 30 (14-36) U/L ALT 57 H (6-35) U/L Alkaline Phosphatase 133 H (38-126) U/L Total Protein 8.0 (6.3-8.2) g/dL Albumin 4.7 (3.5-5.1) g/dL Urine Color [place] H (Yellow) Urine Appearance Cloudy H (Clear) Urine pH 7.0 (5.0-9.0) Ur Specific [place] 1.018 (1.001-1.035) Urine Protein 2+ H (Negative) mg/dL Urine Glucose (UA) Negative (Negative) mg/dL Urine Ketones Negative (Negative) mg/dL Ur Blood (Man) 3+ H (Negative) Urine Nitrate Negative (Negative) Urine Bilirubin Negative (Negative) Urine Urobilinogen 1.0 (<2.0) mg/dL Leukocyte Esterase Rfl 2+ H (Negative) AIDE/UL Urine RBC >100 H (0-2) /hpf Urine WBC 11-20 H (0-3) /hpf Ur Squamous Epith Cells None seen (Few) /hpf Urine Bacteria None seen /hpf Urine Casts 0-2 POC Urine HCG, Qual Negative (Negative) 11/06/24 Range/Units 10:09 WBC (4.5-10.0) K/mm3 RBC (4.2-5.4) M/mm3 Hgb (12.0-15.0) g/dL Hct (37.0-47.0) % MCV (80-100) fl MCH (26-34) pg MCHC (32-36) g/dl RDW (11.5-14.5) % Plt Count (150-375) k/mm3 MPV (7.4-10.4) fl Immature Gran % (Auto) (0-0.5) % Neut % (Auto) (45.5-73.1) % Lymph % (Auto) (18.3-44.2) % [place] % (Auto) (2.6-8.5) % Eos % (Auto) (0-4.4) % Baso % (Auto) (0.2-1.2) % Lymph # (Auto) (0.9-3.2) K/mm3 [place] # (Auto) (0.1-0.6) K/mm3 Eos # (Auto) (0-0.3) K/mm3 Baso # (Auto) (0.0-0.1) K/mm3 Abs Immat Gran (auto) (0.00-0.031) K/mm3 Absolute Neuts (auto) (1.3-6.7) K/mm3 Absolute Nucleated RBC (0.0-0.012) K/mm3 Nucleated RBC % (0.0-0.2) % Platelet Estimate (Adequate) Schistocytes Sodium (137-145) mmol/L Potassium (3.4-5.0) mmol/L Chloride (98-107) mmol/L Carbon Dioxide (22-30) mmol/L Anion Gap (4-12) mmol/L BUN (7-17) mg/dL Creatinine (0.7-1.0) mg/dL Estim Creat Clear Calc ml/min Estimated GFR (59 - ) Glucose (65-110) mg/dL Lactic Acid 2.5 H (0.7-2.0) mmol/L Calcium (8.4-10.2) mg/dL Total Bilirubin (0.2-1.3) mg/dL AST (14-36) U/L ALT (6-35) U/L Alkaline Phosphatase (38-126) U/L Total Protein (6.3-8.2) g/dL Albumin (3.5-5.1) g/dL Urine Color (Yellow) Urine Appearance (Clear) Urine pH (5.0-9.0) Ur Specific [place] (1.001-1.035) Urine Protein (Negative) mg/dL Urine Glucose (UA) (Negative) mg/dL Urine Ketones (Negative) mg/dL Ur Blood (Man) (Negative) Urine Nitrate (Negative) Urine Bilirubin (Negative) Urine Urobilinogen (<2.0) mg/dL Leukocyte Esterase Rfl (Negative) AIDE/UL Urine RBC (0-2) /hpf Urine WBC (0-3) /hpf Ur Squamous Epith Cells (Few) /hpf Urine Bacteria /hpf Urine Casts POC Urine HCG, Qual (Negative) Discharge Plan Discharge Clinical Impression: Calculus of left ureter, Leukocytosis Patient Disposition: Still a Patient Condition: Stable
[2024-11-06] MEDS: ONDANSETRON INJ 4 MG/2 ML VIAL IV PUSH ×4 (09:52→20:16)
[2024-11-06] MEDS: HYDROmorphone HCL INJ (*CRX) 1 MG/ML SYR 0.5 MG IV PUSH ×4 (09:52→23:14)
[2024-11-06 10:31] LABS: Lactic Acid Reflex 2.5 mmol/L (0.7-2.0)
--- NOTE | 2024-11-06 10:45 | P.CONUR_ITS ---
Assessment and Plan Assessment and plan (1) Ureteral stone: Code(s): N20.1 - Calculus of ureter Status: Acute Assessment and Plan: s/p uncomplicated cystoscopy, left retrograde pyelogram, left ureteral stent placement 11/02/[address] Barbosa at [facility] for obstructing 6mm left proximal ureteral stone. (2) Leukocytosis: Code(s): D72.829 - Elevated white blood cell count, unspecified Status: Acute Assessment and Plan: Leukocytosis trend variable at OSH since 10/31/24: 9.6 - 16.5 - 9.7 - 21.4 - 13.8 11/02/24 Urine culture negative WBC 18.7 today despite compliance on oral antibiotics at home. Afebrile. Plan - 39yoF admitted to the hospitalist service with left ureteral stent pain, possible UTI, possible reactive leukocytosis. - CT AP W CON today shows stent in appropriate position. - Afebrile, renal function stable. 11/02/24 urine culture negative. Low suspicion for acute pyelonephritis. - Blood and urine cultures pending. Agree with culture-directed antibiotics. - Continue supportive care with PRN analgesics, antiemetics, antispasmodics. - Recommend aggressive bowel regimen, ambulation, encourage oral fluids. - No plan for inpatient urologic surgical intervention. OK for diet. - KUB ordered for tomorrow for stone eval. - Plan to follow-up outpatient with Dr. Elizabeth at [facility] for stone treatment/stent management (URS vs ESWL). Office is working on scheduling patient for OR time. Urology Consult Note HPI Date Seen: 11/06/24 Requesting Physician: Hayes Klein PA-C Primary Care Provider: UNKNOWN,DOCTOR Consult Narrative Reason for consult: Left ureteral stone, stent pain, possible UTI Narrative: Pili Argueta is a 39 year old female who underwent uncomplicated cystoscopy, left retrograde pyelogram, left ureteral stent placement 11/02/[address] Barbosa at [facility] for obstructing 6mm left proximal ureteral stone. Post-operatively, her WBC increased to 21 from 9 (likely reactive) with stent discomfort. 11/02/24 urine culture was negative. She was discharged home 11/04/24 on BID cefdinir to complete a full 7-day course of prophylactic antibiotics in addition to PRN oral analgesics and antiemetics. Leukocytosis significantly improved, WBC 13.8. Renal function stable, Cr 0.7. Afebrile. She presents to [facility] today, c/o intermittent left flank pain, left abdominal discomfort, nausea, constipation following hospital discharge. Denies vomiting, fever. Comfortable on exam following IV analgesics/IV antiemetics. Labs reviewed: WBC 18.7, HGB 15, Cr 0.6; UA 3+ blood, 2+LE, negative nitrate, >100 RBC, 11-20 WBC. Blood and urine cultures pending on IV ceftriaxone. CT AP W CON today shows left double-J stent with left upper ureter stone and left kidney upper pole stone. Left hydronephrotic changes. Bilateral kidney cysts. Constipation. Review of Systems 2 Constitutional: Constitutional: Reports no additional constitutional complaints Eyes: Eyes: Reports no additional eye complaints ENT: Reports Normal hearing present Cardiovascular: Cardiovascular: Reports no additional cardiovascular complaints and Denies chest pain Respiratory: Respiratory: Reports no additional respiratory complaints Gastrointestinal: Gastrointestinal: Reports abdominal pain (Left abdominal pain), Reports constipation and Reports nausea Genitourinary: Genitourinary: Reports hematuria and Reports flank pain (Left) Musculoskeletal: Musculoskeletal: Reports no additional musculoskeletal complaints Neurologic: Reports system reviewed and no additional complaints, except as documented Psychiatric: Psychiatric: Reports no additional psychiatric complaints [facility] Past Medical History Medical History (Updated 11/06/24 @ 11:25 by Delilah Barrios APRN) Anxiety and depression Hypertension Chronic pain hips, back, arthritis Heart & renal disease, hypertensive benign with chronic kidney disease Pre-diabetes Surgical History Surgical History (Updated 11/05/24 @ 12:21 by Jatin Astudillo MD) Status post laser lithotripsy of ureteral calculus H/O gynecological procedure Laprascopic endometriosis X3 D&C History of cholecystectomy History of tubal ligation Hx of appendectomy Family History Family History Father Diabetes mellitus Hypertension Heart problem Grandparent AA (alcohol abuse) Heart problem Grandparent Colon abnormality Daughter Asthma, Onset Age: 20 Daughter Asthma Social History Social History Smoking status: Former smoker Alcohol intake: current Alcohol use details: 3-4 servings per week Substance use: never Do You Feel Safe in your Home?: Yes Lack of Transportation: No Lack of Food: Never True Current Housing: I Have Housing Concerned About Future Housing: No Difficulty Paying Gas/Electric Bills: No Difficulty Paying for Meds: No Currently Unemployed: No Education: Master's Degree or Higher Living arrangements: with family Occupation/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 Gender identity (if verbalized by the patient): Female Sexual Orientation (if Verbalized by the Patient): Straight or Heterosexual Spiritual care concerns: No Meds Home Medications and Allergies Home Medications ?Medication ?Instructions ?Recorded ?Confirmed ?Type sertraline 100 mg tablet 200 mg (2 x 100 mg) PO QHS #180 10/22/24 Rx tabs albuterol sulfate 90 mcg/actuation 2 puff inhalation Q4-6H PRN 10/30/24 Rx aerosol inhaler shortness of breath or wheezing 30 days #8.5 grams phentermine 37.5 mg tablet mg 10/30/24 History prednisone 20 mg tablet 40 mg (2 x 20 mg) PO DAILY 5 days 10/30/24 Rx #10 tabs Allergies Allergy/AdvReac Type Severity Reaction Status Date / Time guaifenesin Allergy Unknown Unknown Verified 11/06/24 08:29 brompheniramine AdvReac Unknown TACHYCARDIA Verified 11/06/24 08:29 phenylpropanolamine AdvReac Unknown TACHYCARDIA Verified 11/06/24 08:29 SPINAL TAP MEDICATION Allergy Unknown Itching Uncoded 11/06/24 08:29 Vital Signs Vital Signs - 24 hr 11/06/24 08:32 Temperature 97.7 F Respiratory Rate 16 Blood Pressure 154/99 H Pulse Oximetry 98 Oxygen Delivery Room Air Exam 2 Const: General: comfortable and no acute distress Other: Pain partially relieved s/p IV analgesics/antiemetics HENMT: Face/Nose/Sinus: Normal nares present Eyes: General: appearance normal, both eyes and all related structures Resp: Effort & Inspection: normal respiratory effort GI: Other: LLQ tender : Bimanual exam- vagina & uterus: bladder normal to palpation Skin: General skin exam: normal color Neuro: Speech: normal speech Extrem: General: normal to inspection Psych: Speech and movement: Normal speech and movement present Affect: n ormal affect Results Labs 11/06/24 08:37 11/06/24 08:37 Labs: Short CBC 11/06/24 Range/Units 08:37 WBC 18.7 H (4.5-10.0) K/mm3 Hgb 15.0 (12.0-15.0) g/dL Hct 46.0 (37.0-47.0) % Plt Count 400 H (150-375) k/mm3 BMP 11/06/24 08:37 Sodium 137 Potassium 4.3 Chloride 101 Carbon Dioxide 26 BUN 16 Creatinine 0.55 L Glucose 136 H Calcium 9.8 Liver Function 11/06/24 Range/Units 08:37 Total Bilirubin 0.5 (0.2-1.3) mg/dL AST 30 (14-36) U/L ALT 57 H (6-35) U/L Alkaline Phosphatase 133 H (38-126) U/L Albumin 4.7 (3.5-5.1) g/dL Urine 11/06/24 Range/Units 08:58 Urine Color [place] H (Yellow) Urine Appearance Cloudy H (Clear) Urine pH 7.0 (5.0-9.0) Ur Specific [place] 1.018 (1.001-1.035) Urine Protein 2+ H (Negative) mg/dL Urine Glucose (UA) Negative (Negative) mg/dL
[2024-11-06 11:13] VITALS: BP 156/82; PULSE 77; RESP 18; O2SAT 97
[2024-11-06 13:17] LABS: Reflex Lactic Acid Yes or No Add Lactic
[2024-11-06 13:40] VITALS: BP 162/96; PULSE 80; RESP 18; O2SAT 98
[2024-11-06] MEDS: KETOROLAC 30 MG/ML VIAL (*BKC) IV PUSH (13:40)
[2024-11-06 14:09] LABS: Lactic Acid 1.1 mmol/L (0.7-2.0)
--- NOTE | 2024-11-06 15:21 | ADMGEN ---
This patient, Pili Argueta, was admitted to [facility] Surg Room 312-01. Patient/family oriented to hospital policies and general routines including ID bracelet, bed and alarms, visiting hours, pain management, procedures, bathroom and other care routines, personal items, smoking policy, room service/diet, and visiting hours. Information on how to activate the Rapid Response Team has been discussed. Patient/Family are encouraged to report perceived risks to care and to ask questions if they do not understand what they are told or what they should do.
--- NOTE | 2024-11-06 15:30 | P.HP_ITS ---
H&P: HPI History of Present Illness Date/Time: 11/06/24 15:30 Chief Complaint: Left sided ABD painand flank pain Narrative: Patient is a 39-year-old female who presented to the emergency department complaints of left-sided abdominal pain and flank pain which is been increasingly worse over the last week. Patient recently was at [facility] and a stent placed for a 6 mm left-sided kidney stone with Urology and was being treated for a UTI. patient presents today to the emergency department with a worsening complaints abdominal pain and flank pain denied any fevers, chills dizziness, chest pain, shortness a breath, nausea or vomiting did report hematuria. Patient's WBC was 18.7 and urine was suspicious for urinary tract infection. CT abdomen showed left double-J stent with left upper ureter stone left kidney upper pole stone. patient was admitted to the medical unit for further evaluation and treatment ureter stone with a consult to Urology was started on aggressive IV hydration and pain control, given 1 dose of Rocephin in the emergency department. Review of Systems Review of Systems: All systems reviewed & are unremarkable except as noted in HPI and below PMFSH Past Medical History Medical History Anxiety and depression Hypertension Chronic pain hips, back, arthritis Heart & renal disease, hypertensive benign with chronic kidney disease Pre-diabetes Surgical History Surgical History Status post laser lithotripsy of ureteral calculus H/O gynecological procedure Laprascopic endometriosis X3 D&C History of cholecystectomy History of tubal ligation Hx of appendectomy Family History Family History Father Diabetes mellitus Hypertension Heart problem Grandparent AA (alcohol abuse) Heart problem Grandparent Colon abnormality Daughter Asthma, Onset Age: 20 Daughter Asthma Social History Social History Smoking status: Former smoker Alcohol intake: current Alcohol use details: 3-4 servings per week Substance use: never Do You Feel Safe in your Home?: Yes Lack of Transportation: No Lack of Food: Never True Current Housing: I Have Housing Concerned About Future Housing: No Difficulty Paying Gas/Electric Bills: No Difficulty Paying for Meds: No Currently Unemployed: No Education: Master's Degree or Higher Living arrangements: with family Occupation/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 Gender identity (if verbalized by the patient): Female Sexual Orientation (if Verbalized by the Patient): Straight or Heterosexual Spiritual care concerns: No Meds Home Medications and Allergies Home Medications ?Medication ?Instructions ?Recorded ?Confirmed ?Type sertraline 100 mg tablet 200 mg (2 x 100 mg) PO QHS #180 10/22/24 Rx tabs albuterol sulfate 90 mcg/actuation 2 puff inhalation Q4-6H PRN 10/30/24 Rx aerosol inhaler shortness of breath or wheezing 30 days #8.5 grams phentermine 37.5 mg tablet mg 10/30/24 History prednisone 20 mg tablet 40 mg (2 x 20 mg) PO DAILY 5 days 10/30/24 Rx #10 tabs Allergies Allergy/AdvReac Type Severity Reaction Status Date / Time guaifenesin Allergy Unknown Unknown Verified 11/06/24 08:29 brompheniramine AdvReac Unknown TACHYCARDIA Verified 11/06/24 08:29 phenylpropanolamine AdvReac Unknown TACHYCARDIA Verified 11/06/24 08:29 SPINAL TAP MEDICATION Allergy Unknown Itching Uncoded 11/06/24 08:29 Vital Signs Vital Signs - 24 hr 11/06/24 08:32 11/06/24 11:13 11/06/24 13:40 Temperature 97.7 F Pulse Rate 77 80 Respiratory Rate 16 18 18 Blood Pressure 154/99 H 156/82 H 162/96 H Pulse Oximetry 98 97 98 Oxygen Delivery Room Air Exam Narrative: * GENERAL: Alert and oriented x 3. No acute distress. * EYES: EOMI. No scleral icterus. PERRLA. * HEENT: Moist mucous membranes. * LUNGS: Clear to auscultation bilaterally. No accessory muscle use. * CARDIOVASCULAR: Regular rate and rhythm. No murmur. No JVD. S1-S2 * ABDOMEN: LT sided ABD pain and CVA tenderness , non-distended. No palpable masses. * EXTREMITIES: No edema. Non-tender * SKIN: No rashes or lesions. Skin warm, dry. * NEUROLOGIC: No focal neurological deficits. CN II-XII grossly intact * PSYCHIATRIC: Appropriate mood and affect. Good judgement and insight. H&P: Results Labs Labs: Short CBC 11/06/24 Range/Units 08:37 WBC 18.7 H (4.5-10.0) K/mm3 Hgb 15.0 (12.0-15.0) g/dL Hct 46.0 (37.0-47.0) % Plt Count 400 H (150-375) k/mm3 BMP 11/06/24 08:37 Sodium 137 Potassium 4.3 Chloride 101 Carbon Dioxide 26 BUN 16 Creatinine 0.55 L Glucose 136 H Calcium 9.8 Liver Function 11/06/24 Range/Units 08:37 Total Bilirubin 0.5 (0.2-1.3) mg/dL AST 30 (14-36) U/L ALT 57 H (6-35) U/L Alkaline Phosphatase 133 H (38-126) U/L Albumin 4.7 (3.5-5.1) g/dL Urine 11/06/24 Range/Units 08:58 Urine Color [place] H (Yellow) Urine Appearance Cloudy H (Clear) Urine pH 7.0 (5.0-9.0) Ur Specific [place] 1.018 (1.001-1.035) Urine Protein 2+ H (Negative) mg/dL Urine Glucose (UA) Negative (Negative) mg/dL Imaging CT scan - abdomen: Radiologist's impression: CT abdomen pelvis w con Ordering provider: Hayes Klein PA-C History: 39 years Female with . L abd pain, recent ureter stent . Comparison: None. Technique: CT abdomen and pelvis with IV and without oral contrast. Automated exposure control and iterative reconstruction technique were employed. The dose- length product was 566.43 mGy-cm. None. MLO Omnipaque 350 was given IV. Findings: VISUALIZED LOWER CHEST: Dependent atelectatic changes. UPPER ABDOMINAL ORGANS: Liver: Fat infiltration. Hepatomegaly. Gallbladder: Status post cholecystectomy. Spleen: Normal. Stomach/duodenum: Normal. Pancreas: Normal. Adrenals: Normal. Kidneys: Multiple small right cysts. Left hydronephrotic changes with double-J stent. Stone in the left kidney upper pole. Tiny cysts in the left kidney. Stone in the left upper ureter. PELVIC ORGANS: The bladder is normal. BOWEL AND MESENTERY: Colon: No evidence of diverticulitis. Fecal material is loaded in the colon suggestive of constipation. Appendix is not demonstrated. Small Bowel: Normal. No obstruction. Peritoneum/mesentery: No free air or free fluid. No mesenteric lymphadenopathy. RETROPERITONEUM: Normal aorta. No retroperitoneal lymphadenopathy. MUSCULOSKELETAL: Superficial soft tissues: Tiny fat-containing umbilical hernia. The superficial soft tissues are normal. Bones: Normal spine. IMPRESSION: 1. No evidence of appendicitis, diverticulitis or intestinal obstruction. 2. Left double-J stent with left upper ureter stone and left kidney upper pole stone. Left hydronephrotic changes. Bilateral kidney cysts. 3. Constipation. 4. Hepatomegaly with Fat infiltration Assessment and Plan Assessment and plan (1) Ureteral stone: Code(s): N20.1 - Calculus of ureter Status: Acute Assessment and Plan: * CT ABD showing proper placement of stent * Urology consulted * IV fluids * Pain control with Dilaudid * Toradol for inflammation * IV Rocephin * Trend WBC reactive vs infectious * follow-up KUB in the AM * antiemetics * no surgical intervention planned diet per Urology * Plan to follow-up outpatient with Dr. Elizabeth at [facility] for stone treatment/stent management (URS vs ESWL). Office is working on scheduling patient for OR time. (2) UTI (urinary tract infection): Code(s): N39.0 - Urinary tract infection, site not specified Status: Acute Assessment and Plan: * UA suspicious for yeast UTI: UA 3+ blood, 2+LE, negative nitrate, >100 RBC, 11-20 WBC * was previously being treated with antibiotic therapy * IV Rocephin pending cultures * trend WBC to determine reactive versus infectious (3) Anxiety and depression: Code(s): F41.9 - Anxiety disorder, unspecified; F32.A - Depression, unspecified Status: Acute Assessment and Plan: * Resume home medication sertraline Plan code status: full code DVT prophylaxis: Lovenox Stress ulcer prophylaxis: Protonix 40 daily PT/OT notes: Ambulatory Disposition: Patient Continues admission to the medical unit for further evaluation and treatment of ureter stone and UTI. Follow-up KUB in the a.m. and follow cultures continue with pain control and IV fluids. plan for discharge to home when medically stable per urology plan is for outpatient treatment and stent management. Quality VTE Prophylaxis VTE prophylaxis: mechanical ordered -Patient's previous records reviewed on admission -ER notes reviewed in detail on admission -discussed all findings and current treatment plan with patient/Family/POA -Consultations reviewed for recommendations -Patient's disposition for safe discharge discussed with cyanide case hardener Dictation performed by [employer] direct speech recognition software, therefore scientific investigator variants and typographical errors may occur. Hospitalist MIPS Advance Care Plan I have confirmed that the patient's Advanced Care Plan is present, code status is documented, or surrogate decision maker is listed in patient medical record.: Yes Medication Reconciliation I have utilized all available resources to obtain, update and review the patients current medications (includes all prescriptions, OTC, herbals, cannabis, and nutritional supplements).: Yes The patient is not eligible for med reconciliation; the patient is in a emergent medical situation where delaying treatment would jeopardize the patients health.: No
[2024-11-06] MEDS: SODIUM CHLORIDE 0.9% IV 1,000 ML 125 ML IV CONT (15:33)
[2024-11-06 15:35] VITALS: BMI 34.7
[2024-11-06] MEDS: oxyBUTYnin CHLORIDE 5 MG TABLET PO (17:17)
[2024-11-06] MEDS: oxyCODONE/ACETAMINOPHEN (*CRX) 5-325 MG TABLET 1 TABLET PO ×2 (17:18→21:50)
[2024-11-06] MEDS: LACTULOSE 20 GM/30 ML UDC PO ×2 (18:04→23:12)
[2024-11-06 20:15] VITALS: BP 148/79; PULSE 83; RESP 18; TEMP 36.6; O2SAT 97
[2024-11-06] MEDS: SERTRALINE HCL 50 MG TABLET 200 MG PO (21:49)
[2024-11-07] MEDS: SODIUM CHLORIDE 0.9% IV 1,000 ML 125 ML IV CONT ×4 (00:47→18:45)
[2024-11-07] MEDS: oxyCODONE/ACETAMINOPHEN (*CRX) 5-325 MG TABLET 1 TABLET PO (04:34)
[2024-11-07 05:22] VITALS: BP 126/79; PULSE 78; RESP 20; TEMP 37.3; O2SAT 97
[2024-11-07 06:24] LABS: Basophils Absolute Auto 0.1 K/mm3 (0.0-0.1); Basophils Percent Auto 0.6 % (0.2-1.2); Eosinophils Absolute Auto 0.3 K/mm3 (0-0.3); Eosinophils Percent Auto 2.4 % (0-4.4); Hematocrit 39.5 % (37.0-47.0); Hemoglobin 12.8 g/dL (12.0-15.0); Immature Granulocyte Absolute 0.11 K/mm3 (0.00-0.031); Immature Granulocyte Percent A 0.8 % (0-0.5); Lymphocytes Absolute Auto 4.87 K/mm3 (0.9-3.2); Lymphocytes Percent Auto 37.5 % (18.3-44.2); Mean Corpuscular HGB Conc 32.4 g/dl (32-36); Mean Corpuscular Hemoglobin 29.6 pg (26-34); Mean Corpuscular Volume 91.4 fl (80-100); Monocytes Percent Auto 7.6 % (2.6-8.5); Neutrophils Absolute Auto 6.6 K/mm3 (1.3-6.7); Neutrophils Percent Auto 51.1 % (45.5-73.1); Platelet Count Result 285 k/mm3 (150-375); Red Blood Count 4.32 M/mm3 (4.2-5.4); Red Cell Distribution Width 13.3 % (11.5-14.5)
[2024-11-07 06:35] LABS: Alanine Aminotransferase 81 U/L (6-35); Albumin Level 3.3 g/dL (3.5-5.1); Alkaline Phosphatase 112 U/L (38-126); Anion Gap 7 mmol/L (4-12); Aspartate Amino Transferase 63 U/L (14-36); Bilirubin,Total 0.3 mg/dL (0.2-1.3); Blood Urea Nitrogen 15 mg/dL (7-17); Calcium 7.9 mg/dL (8.4-10.2); Carbon Dioxide 25 mmol/L (22-30); Chloride 106 mmol/L (98-107); Estimated CRCL calculation 105 ml/min; Estimated Glomerular Filt Rate > 60; Glucose 122 mg/dL (65-110); Potassium 3.3 mmol/L (3.4-5.0); Sodium 138 mmol/L (137-145)
[2024-11-07] MEDS: ONDANSETRON INJ 4 MG/2 ML VIAL IV PUSH ×2 (06:57→23:23)
[2024-11-07] MEDS: LACTULOSE 20 GM/30 ML UDC PO ×2 (06:57→12:14)
[2024-11-07] MEDS: HYDROmorphone HCL INJ (*CRX) 1 MG/ML SYR 0.5 MG IV PUSH ×3 (08:02→23:23)
[2024-11-07] MEDS: oxyBUTYnin CHLORIDE 5 MG TABLET PO ×3 (08:03→17:34)
--- NOTE | 2024-11-07 08:59 | PM.IMPN ---
Progress Note: A&P Assessment and Plan (1) Ureteral stone: Code(s): N20.1 - Calculus of ureter Status: Acute (2) UTI (urinary tract infection): Code(s): N39.0 - Urinary tract infection, site not specified Status: Acute (3) Hypertension: Code(s): I10 - Essential (primary) hypertension Status: Acute (4) Hyperlipidemia: Code(s): E78.5 - Hyperlipidemia, unspecified Status: Acute Plan Ureteral stone: Code(s): N20.1 - Calculus of ureter Status: Acute Assessment and Plan: CT ABD showing proper placement of stent Urology consulted, No plan for inpatient urologic surgical intervention per urologist Plan to follow-up outpatient with Dr. Elizabeth at [facility] for stone treatment/stent management (URS vs ESWL). Office is working on scheduling patient for OR time. Optimize pain management UTI (urinary tract infection): Code(s): N39.0 - Urinary tract infection, site not specified Status: Acute Assessment and Plan: UA showed suggest UTI yeast 3+ blood, 2+LE, negative nitrate, >100 RBC, 11-20 WBC Continue IV Rocephin pending cultures Patient's temperature 99.1? Anxiety and depression: Code(s): F41.9 - Anxiety disorder, unspecified; F32.A - Depression, unspecified Status: Acute Assessment and Plan: Resume home medication sertraline Subjective Date/time seen: 11/07/24 08:59 Exam Narrative: GENERAL: Alert and oriented x 3. No acute distress. EYES: EOMI. No scleral icterus. PERRLA. HEENT: Moist mucous membranes. LUNGS: Clear to auscultation bilaterally. No accessory muscle use. CARDIOVASCULAR: Regular rate and rhythm. No murmur. No JVD. S1-S2 ABDOMEN: LT sided ABD pain and CVA tenderness , non-distended. No palpable masses. EXTREMITIES: No edema. Non-tender SKIN: No rashes or lesions. Skin warm, dry. NEUROLOGIC: No focal neurological deficits. CN II-XII grossly intact PSYCHIATRIC: Appropriate mood and affect. Good judgement and insight. Objective Data Vital Signs Vital Signs: Vital Signs - 24 hr 11/06/24 11:13 11/06/24 13:40 11/06/24 20:00 Temperature Pulse Rate 77 80 Respiratory Rate 18 18 Blood Pressure 156/82 H 162/96 H Pulse Oximetry 97 98 Oxygen Delivery Room Air 11/06/24 20:15 11/07/24 05:22 Temperature 98 F 99.1 F Pulse Rate 83 78 Respiratory Rate 18 20 Blood Pressure 148/79 H 126/79 Pulse Oximetry 97 97 Oxygen Delivery Intake/Output Intake/Output: Intake & Output 11/04/24 11/05/24 11/06/24 11/07/24 23:59 23:59 23:59 23:59 Intake Total 290 1450 Output Total 350 Balance 290 1100 Meds/Results Medications: Active Medications Generic Name Dose Route Start Last Admin Trade Name Freq PRN Reason Stop Dose Admin Acetaminophen 650 mg 11/06/24 12:46 Acetaminophen 325 Mg Tablet PO Q4H PRN Mild Pain (1-3) or Fever Hydromorphone HCl 0.5 mg 11/06/24 12:46 11/07/24 08:02 Hydromorphone Hcl Inj (*Crx) 1 Mg/Ml Syr IV PUSH 0.5 mg Q4H PRN Administration Pain Rated 7-10 Sodium Chloride 1,000 mls @ 125 mls/hr 11/06/24 12:50 11/07/24 00:47 Normal Saline Iv IV CONT 125 mls/hr .Q8H BINA Administration Ceftriaxone Sodium 1 gm in 50 mls @ 100 mls/hr 11/07/24 09:00 11/07/24 08:03 Rocephin 1 Gm/Ns 50 Ml IVPB 100 mls/hr DAILY BINA Administration Ketorolac Tromethamine 30 mg 11/06/24 12:46 11/06/24 13:40 Ketorolac 30 Mg/Ml Vial (*Bkc) IV PUSH 11/11/24 12:45 30 mg Q6H PRN Administration Pain Rated 4-6 Lactulose 20 gm 11/06/24 18:00 11/07/24 06:57 Lactulose 20 Gm/30 Ml Udc PO 20 gm Q6HR BINA Administration Ondansetron HCl 4 mg 11/06/24 12:46 11/07/24 06:57 Ondansetron Inj 4 Mg/2 Ml Vial IV PUSH 4 mg Q4H PRN Administration Nausea Oxybutynin Chloride 5 mg 11/06/24 17:00 11/07/24 08:03 Oxybutynin Chloride 5 Mg Tablet PO 5 mg TID BINA Administration Oxycodone/Acetaminophen 1 tablet 11/06/24 16:11 11/07/24 04:34 Oxycodone/Acetaminophen (*Crx) 5-325 Mg Tablet PO 1 tablet Q4H PRN Administration Pain Rated 4-6 Sertraline HCl 200 mg 11/06/24 21:20 11/06/24 21:49 Sertraline Hcl 50 Mg Tablet PO 200 mg QHS BINA Administration Radiology Results: ITS Impressions Abdomen/Pelvis CT 11/06/24 09:57 IMPRESSION: 1. No evidence of appendicitis, diverticulitis or intestinal obstruction. 2. Left double-J stent with left upper ureter stone and left kidney upper pole stone. Left hydronephrotic changes. Bilateral kidney cysts. 3. Constipation. 4. Hepatomegaly with Fat infiltration Abdomen X-Ray 11/07/24 07:34 IMPRESSION: 1. 4 mm stone in proximal left ureter with left internal ureteral stent in expected position. Labs Labs: Laboratory Results - last 24 hr 11/06/24 11/06/24 11/06/24 08:37 08:58 09:00 WBC 18.7 H RBC 5.17 Hgb 15.0 Hct 46.0 MCV 89.0 MCH 29.0 MCHC 32.6 RDW 13.2 Plt Count 400 H MPV 9.1 Immature Gran % (Auto) 1.1 H Neut % (Auto) 83.4 H Lymph % (Auto) 12.0 L [place] % (Auto) 2.6 Eos % (Auto) 0.7 Baso % (Auto) 0.2 Lymph # (Auto) 2.24 [place] # (Auto) 0.5 Eos # (Auto) 0.1 Baso # (Auto) 0.0 Abs Immat Gran (auto) 0.20 H Absolute Neuts (auto) 15.6 H Absolute Nucleated RBC 0.000 Nucleated RBC % 0.0 Platelet Estimate Increased Schistocytes None seen Sodium 137 Potassium 4.3 Chloride 101 Carbon Dioxide 26 Anion Gap 10 BUN 16 Creatinine 0.55 L Estim Creat Clear Calc 114 Estimated GFR > 60 Glucose 136 H Lactic Acid Calcium 9.8 Total Bilirubin 0.5 AST 30 ALT 57 H Alkaline Phosphatase 133 H Total Protein 8.0 Albumin 4.7 Urine Color [place] H Urine Appearance Cloudy H Urine pH 7.0 Ur Specific [place] 1.018 Urine Protein 2+ H Urine Glucose (UA) Negative Urine Ketones Negative Ur Blood (Man) 3+ H Urine Nitrate Negative Urine Bilirubin Negative Urine Urobilinogen 1.0 Leukocyte Esterase Rfl 2+ H Urine RBC >100 H Urine WBC 11-20 H Ur Squamous Epith Cells None seen Urine Bacteria None seen Urine Casts 0-2 POC Urine HCG, Qual Negative 11/06/24 11/06/24 11/07/24 10:09 13:47 06:18 WBC 13.0 H RBC 4.32 Hgb 12.8 Hct 39.5 MCV 91.4 MCH 29.6 MCHC 32.4 RDW 13.3 Plt Count 285 MPV 9.0 Immature Gran % (Auto) 0.8 H Neut % (Auto) 51.1 Lymph % (Auto) 37.5 [place] % (Auto) 7.6 Eos % (Auto) 2.4 Baso % (Auto) 0.6 Lymph # (Auto) 4.87 H [place] # (Auto) 1.0 H Eos # (Auto) 0.3 Baso # (Auto) 0.1 Abs Immat Gran (auto) 0.11 H Absolute Neuts (auto) 6.6 Absolute Nucleated RBC 0.000 Nucleated RBC % 0.0 Platelet Estimate Schistocytes Sodium 138 Potassium 3.3 L Chloride 106 Carbon Dioxide 25 Anion Gap 7 BUN 15 Creatinine 0.61 L Estim Creat Clear Calc 105 Estimated GFR > 60 Glucose 122 H Lactic Acid 2.5 H 1.1 Calcium 7.9 L Total Bilirubin 0.3 AST 63 H ALT 81 H Alkaline Phosphatase 112 Total Protein 6.0 L Albumin 3.3 L Urine Color Urine Appearance Urine pH Ur Specific [place] Urine Protein Urine Glucose (UA) Urine Ketones Ur Blood (Man) Urine Nitrate Urine Bilirubin Urine Urobilinogen Leukocyte Esterase Rfl Urine RBC Urine WBC Ur Squamous Epith Cells Urine Bacteria Urine Casts POC Urine HCG, Qual
--- NOTE | 2024-11-07 10:42 | PC.NURSE ---
Addendum entered by Joelle Rodriguez RN 11/07/24 18:08: Patient continues to work from her computer. Complaints of discomfort and abdominal cramping continue with no relief from walking, prune juice, or medications. Original Note: Patient down to imaging during shift report. Patient resting in bed for morning assessment. Patient state she has 10/10 pain. Pain medication ineffective as she still is so uncomfortable and has a lot of cramping . She is very focused on having a BM. Prune juice ordered from dietary. Colace to be started this PM. Patient affect is very flat but verbally has many concerns over her labs, imaging, urine, bowels, and pain. KUB negative, and shows stone and stent.
--- NOTE | 2024-11-07 11:24 | P.PNIM_ITS ---
Progress Note: A&P Assessment and Plan (1) Ureteral stone: Code(s): N20.1 - Calculus of ureter Status: Acute Assessment and Plan: s/p uncomplicated cystoscopy, left retrograde pyelogram, left ureteral stent placement 11/02/[address] Barbosa at [facility] for obstructing 6mm left proximal ureteral stone. Leukocytosis trend variable at OSH since 10/31/24: 9.6 - 16.5 - 9.7 - 21.4 - 13.8 11/02/24 Urine culture negative WBC 18.7 despite compliance on oral antibiotics at home. Afebrile. WBC downtrending- 13 today Afebrile, renal function stable. 11/02/24 urine culture negative. Low suspicion for acute pyelonephritis. - Blood and urine cultures pending. Agree with culture-directed antibiotics. - Continue supportive care with PRN analgesics, antiemetics, antispasmodics. - Recommend aggressive bowel regimen, ambulation, encourage oral fluids. - No plan for inpatient urologic surgical intervention. OK for diet. - KUB ordered for tomorrow for stone eval. - Plan to follow-up outpatient with Dr. Elizabeth at [facility] for stone treatment/stent management (URS vs ESWL). Office is working on scheduling patient for OR time. (2) UTI (urinary tract infection): Code(s): N39.0 - Urinary tract infection, site not specified Status: Acute Assessment and Plan: continue Ceftriaxone 1 gm daily follow urine cultures (3) Hypertension: Code(s): I10 - Essential (primary) hypertension Status: Acute (4) Hyperlipidemia: Code(s): E78.5 - Hyperlipidemia, unspecified Status: Acute Plan # Anxiety disorder, unspecified # Depression, unspecified chronic Resume home medication - sertraline Time Spent With Patient Time with patient: 25 - 35 minutes Subjective Date/time seen: 11/07/24 11:24 Interval history: Left sided ABD/flank pain Narrative retrieved from H/P: Patient is a 39-year-old female who presented to the emergency department complaints of left-sided abdominal pain and flank pain which is been increasingly worse over the last week. Patient recently was at [facility] and a stent placed for a 6 mm left-sided kidney stone with Urology and was being treated for a UTI. patient presents today to the emergency department with a worsening complaints abdominal pain and flank pain denied any fevers, chills dizziness, chest pain, shortness a breath, nausea or vomiting did report hematuria. Patient's WBC was 18.7 and urine was suspicious for urinary tract infection. CT abdomen showed left double-J stent with left upper ureter stone left kidney upper pole stone. patient was admitted to the medical unit for further evaluation and treatment ureter stone with a consult to Urology was started on aggressive IV hydration and pain control, given 1 dose of Rocephin in the emergency department. 11/07 pt is seen and examined. She feels crampy and bloated. Xray was done- no obstruction. Urology was consulted- following. She is somewhat irritated as she recently got a new job and already missed several days of work because of all of this. She does not understand why it cannot be just done all at once. Review of Systems Review of Systems: All systems reviewed & are unremarkable except as noted in HPI and below Exam Narrative: * GENERAL: Alert and oriented x 3. No acute distress. * EYES: EOMI. No scleral icterus. PERRLA. * HEENT: Moist mucous membranes. * LUNGS: Clear to auscultation bilaterally. No accessory muscle use. * CARDIOVASCULAR: Regular rate and rhythm. No murmur. No JVD. S1-S2 * ABDOMEN: LT sided ABD pain and CVA tenderness , non-distended. No palpable masses. * EXTREMITIES: No edema. Non-tender * SKIN: No rashes or lesions. Skin warm, dry. * NEUROLOGIC: No focal neurological deficits. CN II-XII grossly intact * PSYCHIATRIC: Appropriate mood and affect. Good judgement and insight. Objective Data Vital Signs Vital Signs: Vital Signs - 24 hr 11/06/24 13:40 11/06/24 20:00 11/06/24 20:15 Temperature 98 F Pulse Rate 80 83 Respiratory Rate 18 18 Blood Pressure 162/96 H 148/79 H Pulse Oximetry 98 97 Oxygen Delivery Room Air 11/07/24 05:22 Temperature 99.1 F Pulse Rate 78 Respiratory Rate 20 Blood Pressure 126/79 Pulse Oximetry 97 Oxygen Delivery Intake/Output Intake/Output: Intake & Output 11/04/24 11/05/24 11/06/24 11/07/24 23:59 23:59 23:59 23:59 Intake Total 290 2500 Output Total 750 Balance 290 1750 Meds/Results Medications: Active Medications Generic Name Dose Route Start Last Admin Trade Name Freq PRN Reason Stop Dose Admin Acetaminophen 650 mg 11/06/24 12:46 Acetaminophen 325 Mg Tablet PO Q4H PRN Mild Pain (1-3) or Fever Hydromorphone HCl 0.5 mg 11/06/24 12:46 11/07/24 08:02 Hydromorphone Hcl Inj (*Crx) 1 Mg/Ml Syr IV PUSH 0.5 mg Q4H PRN Administration Pain Rated 7-10 Sodium Chloride 1,000 mls @ 125 mls/hr 11/06/24 12:50 11/07/24 09:52 Normal Saline Iv IV CONT 125 mls/hr .Q8H BINA Administration Ceftriaxone Sodium 1 gm in 50 mls @ 100 mls/hr 11/07/24 09:00 11/07/24 08:33 Rocephin 1 Gm/Ns 50 Ml IVPB Infused DAILY BINA Infusion Ketorolac Tromethamine 30 mg 11/06/24 12:46 11/06/24 13:40 Ketorolac 30 Mg/Ml Vial (*Bkc) IV PUSH 11/11/24 12:45 30 mg Q6H PRN Administration Pain Rated 4-6 Lactulose 20 gm 11/06/24 18:00 11/07/24 06:57 Lactulose 20 Gm/30 Ml Udc PO 20 gm Q6HR BINA Administration Ondansetron HCl 4 mg 11/06/24 12:46 11/07/24 06:57 Ondansetron Inj 4 Mg/2 Ml Vial IV PUSH 4 mg Q4H PRN Administration Nausea Oxybutynin Chloride 5 mg 11/06/24 17:00 11/07/24 08:03 Oxybutynin Chloride 5 Mg Tablet PO 5 mg TID BINA Administration Oxycodone/Acetaminophen 1 tablet 11/06/24 16:11 11/07/24 04:34 Oxycodone/Acetaminophen (*Crx) 5-325 Mg Tablet PO 1 tablet Q4H PRN Administration Pain Rated 4-6 Senna/Docusate Sodium 1 tab 11/07/24 17:00 Senna/Docusate Sodium Tablet PO BID BINA Sertraline HCl 200 mg 11/06/24 21:20 11/06/24 21:49 Sertraline Hcl 50 Mg Tablet PO 200 mg QHS BINA Administration Radiology Results: ITS Impressions Abdomen/Pelvis CT 11/06/24 09:57 IMPRESSION: 1. No evidence of appendicitis, diverticulitis or intestinal obstruction. 2. Left double-J stent with left upper ureter stone and left kidney upper pole stone. Left hydronephrotic changes. Bilateral kidney cysts. 3. Constipation. 4. Hepatomegaly with Fat infiltration Abdomen X-Ray 11/07/24 07:34 IMPRESSION: 1. 4 mm stone in proximal left ureter with left internal ureteral stent in expected position. Labs Labs: Laboratory Results - last 24 hr 11/06/24 11/07/24 13:47 06:18 WBC 13.0 H RBC 4.32 Hgb 12.8 Hct 39.5 MCV 91.4 MCH 29.6 MCHC 32.4 RDW 13.3 Plt Count 285 MPV 9.0 Immature Gran % (Auto) 0.8 H Neut % (Auto) 51.1 Lymph % (Auto) 37.5 [place] % (Auto) 7.6 Eos % (Auto) 2.4 Baso % (Auto) 0.6 Lymph # (Auto) 4.87 H [place] # (Auto) 1.0 H Eos # (Auto) 0.3 Baso # (Auto) 0.1 Abs Immat Gran (auto) 0.11 H Absolute Neuts (auto) 6.6 Absolute Nucleated RBC 0.000 Nucleated RBC % 0.0 Sodium 138 Potassium 3.3 L Chloride 106 Carbon Dioxide 25 Anion Gap 7 BUN 15 Creatinine 0.61 L Estim Creat Clear Calc 105 Estimated GFR > 60 Glucose 122 H Lactic Acid 1.1 Calcium 7.9 L Total Bilirubin 0.3 AST 63 H ALT 81 H Alkaline Phosphatase 112 Total Protein 6.0 L Albumin 3.3 L Quality VTE Prophylaxis VTE prophylaxis: mechanical ordered
[2024-11-07] MEDS: KETOROLAC 30 MG/ML VIAL (*BKC) IV PUSH ×2 (12:14→21:14)
[2024-11-07] MEDS: POTASSIUM CHLORIDE 20 MEQ ER TABLET 40 MEQ PO (12:14)
[2024-11-07 14:00] VITALS: BP 139/86; PULSE 77; RESP 18; TEMP 36.7; O2SAT 99
[2024-11-07] MEDS: SENNA/DOCUSATE SODIUM TABLET 1 TAB PO (17:34)
[2024-11-07] MEDS: DICYCLOMINE HCL 10 MG CAPSULE 20 MG PO (17:38)
[2024-11-07 20:35] VITALS: BP 126/70; PULSE 73; RESP 20; TEMP 36.7; O2SAT 98
[2024-11-07] MEDS: SERTRALINE HCL 50 MG TABLET 200 MG PO (21:13)
[2024-11-08] MEDS: DICYCLOMINE HCL 10 MG CAPSULE 20 MG PO (01:24)
[2024-11-08] MEDS: SODIUM CHLORIDE 0.9% IV 1,000 ML 125 ML IV CONT ×3 (02:55→23:44)
[2024-11-08 04:30] VITALS: BP 121/71; PULSE 66; RESP 20; TEMP 36.3; O2SAT 98
[2024-11-08] MEDS: KETOROLAC 30 MG/ML VIAL (*BKC) IV PUSH ×3 (05:42→17:52)
[2024-11-08 06:44] LABS: Basophils Absolute Auto 0.1 K/mm3 (0.0-0.1); Basophils Percent Auto 0.7 % (0.2-1.2); Eosinophils Absolute Auto 0.5 K/mm3 (0-0.3); Eosinophils Percent Auto 4.4 % (0-4.4); Hematocrit 41.4 % (37.0-47.0); Hemoglobin 13.4 g/dL (12.0-15.0); Immature Granulocyte Absolute 0.11 K/mm3 (0.00-0.031); Lymphocytes Absolute Auto 3.86 K/mm3 (0.9-3.2); Lymphocytes Percent Auto 35.4 % (18.3-44.2); Mean Corpuscular HGB Conc 32.4 g/dl (32-36); Mean Corpuscular Hemoglobin 29.2 pg (26-34); Mean Corpuscular Volume 90.2 fl (80-100); Mean Platelet Volume 9.1 fl (7.4-10.4); Monocytes Absolute Auto 0.8 K/mm3 (0.1-0.6); Monocytes Percent Auto 7.3 % (2.6-8.5); Neutrophils Absolute Auto 5.6 K/mm3 (1.3-6.7); Neutrophils Percent Auto 51.2 % (45.5-73.1); Platelet Count Result 290 k/mm3 (150-375); Red Blood Count 4.59 M/mm3 (4.2-5.4); Red Cell Distribution Width 13.2 % (11.5-14.5); White Blood Count 10.9 K/mm3 (4.5-10.0)
[2024-11-08 06:45] LABS: Alanine Aminotransferase 86 U/L (6-35); Albumin Level 3.6 g/dL (3.5-5.1); Alkaline Phosphatase 114 U/L (38-126); Anion Gap 6 mmol/L (4-12); Aspartate Amino Transferase 44 U/L (14-36); Bilirubin,Total 0.6 mg/dL (0.2-1.3); Blood Urea Nitrogen 7 mg/dL (7-17); Calcium 8.3 mg/dL (8.4-10.2); Carbon Dioxide 29 mmol/L (22-30); Chloride 101 mmol/L (98-107); Estimated CRCL calculation 117 ml/min; Estimated Glomerular Filt Rate > 60; Glucose 83 mg/dL (65-110); Potassium 3.8 mmol/L (3.4-5.0); Sodium 136 mmol/L (137-145)
[2024-11-08] MEDS: oxyBUTYnin CHLORIDE 5 MG TABLET PO ×3 (08:32→16:41)
[2024-11-08] MEDS: SENNA/DOCUSATE SODIUM TABLET 1 TAB PO ×2 (08:32→16:41)
[2024-11-08] MEDS: ONDANSETRON INJ 4 MG/2 ML VIAL IV PUSH (13:55)
[2024-11-08 14:00] VITALS: BP 138/80; PULSE 78; RESP 18; TEMP 36.6; O2SAT 95
--- NOTE | 2024-11-08 15:13 | PM.IMPN ---
Progress Note: A&P Assessment and Plan (1) Ureteral stone: Code(s): N20.1 - Calculus of ureter Status: Acute Assessment and Plan: s/p uncomplicated cystoscopy, left retrograde pyelogram, left ureteral stent placement 11/02/[address] Barbosa at [facility] for obstructing 6mm left proximal ureteral stone. Leukocytosis trend variable at OSH since 10/31/24: 9.6 - 16.5 - 9.7 - 21.4 - 13.8 11/02/24 Urine culture negative WBC 18.7 despite compliance on oral antibiotics at home. Afebrile. WBC downtrending- 13 today Afebrile, renal function stable. 11/02/24 urine culture negative. Low suspicion for acute pyelonephritis. - Blood and urine cultures pending. Agree with culture-directed antibiotics. - Continue supportive care with PRN analgesics, antiemetics, antispasmodics. - Recommend aggressive bowel regimen, ambulation, encourage oral fluids. - No plan for inpatient urologic surgical intervention. OK for diet. - KUB ordered for tomorrow for stone eval. - Plan to follow-up outpatient with Dr. Elizabeth at [facility] for stone treatment/stent management (URS vs ESWL). Office is working on scheduling patient for OR time. (2) UTI (urinary tract infection): Code(s): N39.0 - Urinary tract infection, site not specified Status: Acute Assessment and Plan: continue Ceftriaxone 1 gm daily follow urine cultures (3) Hypertension: Code(s): I10 - Essential (primary) hypertension Status: Acute (4) Hyperlipidemia: Code(s): E78.5 - Hyperlipidemia, unspecified Status: Acute Plan # Anxiety disorder, unspecified # Depression, unspecified chronic Resume home medication - sertraline She is still feels crampy and bloated. however Xray was done- no obstruction. Urology was consulted- following. She is somewhat irritated as she recently got a new job and already missed several days of work because of all of this. She does not understand why it cannot be just done all at once. discussed with the patient the kidney stone may dislodge spontaneously with stent and she will urinate the stone and may not need further workup however patient will be seen by the urologist and further recommendation to follow, will place on NPO for tomorrow and monitor, Patient urine did no grow any bacteria and her blood culture is pending, patient is being treated with ceftriaxone. Subjective Date/time seen: 11/08/24 15:13 Interval history: Left sided ABD/flank pain Narrative retrieved from H/P: Patient is a 39-year-old female who presented to the emergency department complaints of left-sided abdominal pain and flank pain which is been increasingly worse over the last week. Patient recently was at [facility] and a stent placed for a 6 mm left-sided kidney stone with Urology and was being treated for a UTI. patient presents today to the emergency department with a worsening complaints abdominal pain and flank pain denied any fevers, chills dizziness, chest pain, shortness a breath, nausea or vomiting did report hematuria. Patient's WBC was 18.7 and urine was suspicious for urinary tract infection. CT abdomen showed left double-J stent with left upper ureter stone left kidney upper pole stone. patient was admitted to the medical unit for further evaluation and treatment ureter stone with a consult to Urology was started on aggressive IV hydration and pain control, given 1 dose of Rocephin in the emergency department. She is still feels crampy and bloated. however Xray was done- no obstruction. Urology was consulted- following. She is somewhat irritated as she recently got a new job and already missed several days of work because of all of this. She does not understand why it cannot be just done all at once. discussed with the patient the kidney stone may dislodge spontaneously with stent and she will urinate the stone and may not need further workup however patient will be seen by the urologist and further recommendation to follow, will place on NPO for tomorrow and monitor, Patient urine did no grow any bacteria and her blood culture is pending, patient is being treated with ceftriaxone. Review of Systems Review of Systems: All systems reviewed & are unremarkable except as noted in HPI and below Exam Narrative: Patient is comfortable, NAD HEENT: eyes are clear and none icteric LUNGS:CTA HEART: RR S1S2 ABD: BS+, Soft and nontender Lower extremities: no edema SKIN: nonjaundiced Neuro: grossly intact. Objective Data Vital Signs Vital Signs: Vital Signs - 24 hr 11/07/24 20:00 11/07/24 20:35 11/08/24 04:30 Temperature 36.7 C 36.3 C L Pulse Rate 73 66 Respiratory Rate 20 20 Blood Pressure 126/70 121/71 Pulse Oximetry 98 98 Oxygen Delivery Room Air 11/08/24 08:00 11/08/24 14:00 Temperature 36.6 C Pulse Rate 78 Respiratory Rate 18 Blood Pressure 138/80 Pulse Oximetry 95 Oxygen Delivery Room Air Intake/Output Intake/Output: Intake & Output 11/05/24 11/06/24 11/07/24 11/08/24 23:59 23:59 23:59 23:59 Intake Total 290 5600 2900 Output Total 750 Balance 290 4850 2900 Meds/Results Medications: Active Medications Generic Name Dose Route Start Last Admin Trade Name Freq PRN Reason Stop Dose Admin Acetaminophen 650 mg 11/06/24 12:46 Acetaminophen 325 Mg Tablet PO Q4H PRN Mild Pain (1-3) or Fever Dicyclomine HCl 20 mg 11/07/24 14:01 11/08/24 01:24 Dicyclomine Hcl 10 Mg Capsule PO 20 mg QID PRN Administration Abdominal Cramping Hydromorphone HCl 0.5 mg 11/06/24 12:46 11/07/24 23:23 Hydromorphone Hcl Inj (*Crx) 1 Mg/Ml Syr IV PUSH 0.5 mg Q4H PRN Administration Pain Rated 7-10 Sodium Chloride 1,000 mls @ 125 mls/hr 11/06/24 12:50 11/08/24 12:57 Normal Saline Iv IV CONT 125 mls/hr .Q8H BINA Administration Ceftriaxone Sodium 1 gm in 50 mls @ 100 mls/hr 11/07/24 09:00 11/08/24 08:32 Rocephin 1 Gm/Ns 50 Ml IVPB 100 mls/hr DAILY BINA Administration Ketorolac Tromethamine 30 mg 11/06/24 12:46 11/08/24 11:35 Ketorolac 30 Mg/Ml Vial (*Bkc) IV PUSH 11/11/24 12:45 30 mg Q6H PRN Administration Pain Rated 4-6 Lactulose 20 gm 11/06/24 18:00 11/08/24 12:57 Lactulose 20 Gm/30 Ml Udc PO Not Given Q6HR BINA Ondansetron HCl 4 mg 11/06/24 12:46 11/08/24 13:55 Ondansetron Inj 4 Mg/2 Ml Vial IV PUSH 4 mg Q4H PRN Administration Nausea Oxybutynin Chloride 5 mg 11/06/24 17:00 11/08/24 12:57 Oxybutynin Chloride 5 Mg Tablet PO 5 mg TID BINA Administration Oxycodone/Acetaminophen 1 tablet 11/06/24 16:11 11/07/24 04:34 Oxycodone/Acetaminophen (*Crx) 5-325 Mg Tablet PO 1 tablet Q4H PRN Administration Pain Rated 4-6 Senna/Docusate Sodium 1 tab 11/07/24 17:00 11/08/24 08:32 Senna/Docusate Sodium Tablet PO 1 tab BID BINA Administration Sertraline HCl 200 mg 11/06/24 21:20 11/07/24 21:13 Sertraline Hcl 50 Mg Tablet PO 200 mg QHS BINA Administration Radiology Results: ITS Impressions Abdomen/Pelvis CT 11/06/24 09:57 IMPRESSION: 1. No evidence of appendicitis, diverticulitis or intestinal obstruction. 2. Left double-J stent with left upper ureter stone and left kidney upper pole stone. Left hydronephrotic changes. Bilateral kidney cysts. 3. Constipation. 4. Hepatomegaly with Fat infiltration Abdomen X-Ray 11/07/24 07:34 IMPRESSION: 1. 4 mm stone in proximal left ureter with left internal ureteral stent in expected position. Labs Labs: Laboratory Results - last 24 hr 11/08/24 05:49 WBC 10.9 H RBC 4.59 Hgb 13.4 Hct 41.4 MCV 90.2 MCH 29.2 MCHC 32.4 RDW 13.2 Plt Count 290 MPV 9.1 Immature Gran % (Auto) 1.0 H Neut % (Auto) 51.2 Lymph % (Auto) 35.4 [place] % (Auto) 7.3 Eos % (Auto) 4.4 Baso % (Auto) 0.7 Lymph # (Auto) 3.86 H [place] # (Auto) 0.8 H Eos # (Auto) 0.5 H Baso # (Auto) 0.1 Abs Immat Gran (auto) 0.11 H Absolute Neuts (auto) 5.6 Absolute Nucleated RBC 0.000 Nucleated RBC % 0.0 Sodium 136 L Potassium 3.8 Chloride 101 Carbon Dioxide 29 Anion Gap 6 BUN 7 D Creatinine 0.54 L Estim Creat Clear Calc 117 Estimated GFR > 60 Glucose 83 Calcium 8.3 L Total Bilirubin 0.6 AST 44 H ALT 86 H Alkaline Phosphatase 114 Total Protein 7.0 Albumin 3.6 Quality VTE Prophylaxis VTE prophylaxis: mechanical ordered
[2024-11-08 19:35] VITALS: BP 142/90; PULSE 74; RESP 20; TEMP 36.1; O2SAT 100
[2024-11-08] MEDS: oxyCODONE/ACETAMINOPHEN (*CRX) 5-325 MG TABLET 1 TABLET PO (19:43)
[2024-11-08] MEDS: SERTRALINE HCL 50 MG TABLET 200 MG PO (19:44)
[2024-11-08] MEDS: HYDROmorphone HCL INJ (*CRX) 1 MG/ML SYR 0.5 MG IV PUSH (23:43)
[2024-11-09] MEDS: ONDANSETRON INJ 4 MG/2 ML VIAL IV PUSH (02:51)
[2024-11-09 04:50] VITALS: BP 152/94; PULSE 69; RESP 18; TEMP 35.8; O2SAT 98
[2024-11-09 07:09] LABS: Basophils Absolute Auto 0.1 K/mm3 (0.0-0.1); Basophils Percent Auto 0.8 % (0.2-1.2); Eosinophils Absolute Auto 0.6 K/mm3 (0-0.3); Eosinophils Percent Auto 4.5 % (0-4.4); Hematocrit 40.4 % (37.0-47.0); Hemoglobin 12.8 g/dL (12.0-15.0); Immature Granulocyte Absolute 0.14 K/mm3 (0.00-0.031); Immature Granulocyte Percent A 1.1 % (0-0.5); Lymphocytes Absolute Auto 4.17 K/mm3 (0.9-3.2); Lymphocytes Percent Auto 33.3 % (18.3-44.2); Mean Corpuscular HGB Conc 31.7 g/dl (32-36); Mean Corpuscular Hemoglobin 28.9 pg (26-34); Mean Corpuscular Volume 91.2 fl (80-100); Mean Platelet Volume 9.1 fl (7.4-10.4); Monocytes Absolute Auto 0.8 K/mm3 (0.1-0.6); Monocytes Percent Auto 6.6 % (2.6-8.5); Neutrophils Absolute Auto 6.7 K/mm3 (1.3-6.7); Neutrophils Percent Auto 53.7 % (45.5-73.1); Platelet Count Result 288 k/mm3 (150-375); Red Blood Count 4.43 M/mm3 (4.2-5.4); Red Cell Distribution Width 13.2 % (11.5-14.5); White Blood Count 12.5 K/mm3 (4.5-10.0)
[2024-11-09 07:19] LABS: Alanine Aminotransferase 60 U/L (6-35); Albumin Level 3.6 g/dL (3.5-5.1); Alkaline Phosphatase 112 U/L (38-126); Anion Gap 7 mmol/L (4-12); Aspartate Amino Transferase 25 U/L (14-36); Bilirubin,Total 0.4 mg/dL (0.2-1.3); Blood Urea Nitrogen 13 mg/dL (7-17); Calcium 8.2 mg/dL (8.4-10.2); Carbon Dioxide 29 mmol/L (22-30); Chloride 100 mmol/L (98-107); Estimated CRCL calculation 98 ml/min; Estimated Glomerular Filt Rate > 60; Glucose 84 mg/dL (65-110); Sodium 136 mmol/L (137-145)
[2024-11-09] MEDS: KETOROLAC 30 MG/ML VIAL (*BKC) IV PUSH (08:27)
[2024-11-09] MEDS: DICYCLOMINE HCL 10 MG CAPSULE 20 MG PO (08:33)
[2024-11-09] MEDS: SODIUM CHLORIDE 0.9% IV 1,000 ML 125 ML IV CONT (08:33)
--- NOTE | 2024-11-09 11:23 | P.PNUR_ITS ---
Progress Note: A&P Assessment and Plan (1) Calculus of left ureter: Code(s): N20.1 - Calculus of ureter Status: Acute (2) Leukocytosis: Code(s): D72.829 - Elevated white blood cell count, unspecified Status: Acute Plan Stone visible on KUB. Urine culture negative. Blood culture negative. Okay to discharge home from urologic standpoint. We will contact patient to schedule definitive stone management. Hopefully later this week. We discussed ureteroscopy and lithotripsy. Given the fact she has a stent in place already definitive ureteroscopy may be the best option and if goes well perhaps stent can be removed during the procedure. I will have office call patient to arrange Subjective Subjective Date/Time Seen: 11/09/24 11:23 Interval history: Patient was hoping a stone procedure can be performed while she is inpatient. Unfortunately we have no operating room availability to later this week. Urine and blood cultures are normal. She can be sent home from a urologic standpoint. We will call her to set up by definitive stone procedure Her she reports her stent is irritating. No fevers Exam Narrative: No acute distress Normal breathing Alert orient x3 Objective Data Vital Signs Vital Signs: Vital Signs - 24 hr 11/08/24 14:00 11/08/24 19:35 11/08/24 20:00 Temperature 97.8 F 97 F L Pulse Rate 78 74 Respiratory Rate 18 20 Blood Pressure 138/80 142/90 H Pulse Oximetry 95 100 Oxygen Delivery Room Air 11/09/24 04:50 Temperature 96.5 F L Pulse Rate 69 Respiratory Rate 18 Blood Pressure 152/94 H Pulse Oximetry 98 Oxygen Delivery Intake/Output Intake/Output: Intake & Output 11/06/24 11/07/24 11/08/24 11/09/24 23:59 23:59 23:59 23:59 Intake Total 290 5600 4950.0 1200 Output Total 750 Balance 290 4850 4950.0 1200 Meds/Results Medications: Active Medications Generic Name Dose Route Start Last Admin Trade Name Freq PRN Reason Stop Dose Admin Acetaminophen 650 mg 11/06/24 12:46 Acetaminophen 325 Mg Tablet PO Q4H PRN Mild Pain (1-3) or Fever Dicyclomine HCl 20 mg 11/07/24 14:01 11/09/24 08:33 Dicyclomine Hcl 10 Mg Capsule PO 20 mg QID PRN Administration Abdominal Cramping Hydromorphone HCl 0.5 mg 11/06/24 12:46 11/08/24 23:43 Hydromorphone Hcl Inj (*Crx) 1 Mg/Ml Syr IV PUSH 0.5 mg Q4H PRN Administration Pain Rated 7-10 Sodium Chloride 1,000 mls @ 125 mls/hr 11/06/24 12:50 11/09/24 08:33 Normal Saline Iv IV CONT 125 mls/hr .Q8H BINA Administration Ceftriaxone Sodium 1 gm in 50 mls @ 100 mls/hr 11/07/24 09:00 11/09/24 08:33 Rocephin 1 Gm/Ns 50 Ml IVPB 100 mls/hr DAILY BINA Administration Ketorolac Tromethamine 30 mg 11/06/24 12:46 11/09/24 08:27 Ketorolac 30 Mg/Ml Vial (*Bkc) IV PUSH 11/11/24 12:45 30 mg Q6H PRN Administration Pain Rated 4-6 Lactulose 20 gm 11/06/24 18:00 11/08/24 20:41 Lactulose 20 Gm/30 Ml Udc PO Not Given Q6HR [facility] Ondansetron HCl 4 mg 11/06/24 12:46 11/09/24 02:51 Ondansetron Inj 4 Mg/2 Ml Vial IV PUSH 4 mg Q4H PRN Administration Nausea Oxybutynin Chloride 5 mg 11/06/24 17:00 11/08/24 16:41 Oxybutynin Chloride 5 Mg Tablet PO 5 mg TID BINA Administration Oxycodone/Acetaminophen 1 tablet 11/06/24 16:11 11/08/24 19:43 Oxycodone/Acetaminophen (*Crx) 5-325 Mg Tablet PO 1 tablet Q4H PRN Administration Pain Rated 4-6 Senna/Docusate Sodium 1 tab 11/07/24 17:00 11/08/24 16:41 Senna/Docusate Sodium Tablet PO 1 tab BID BINA Administration Sertraline HCl 200 mg 11/06/24 21:20 11/08/24 19:44 Sertraline Hcl 50 Mg Tablet PO 200 mg QHS BINA Administration Radiology Results: ITS Impressions Abdomen/Pelvis CT 11/06/24 09:57 IMPRESSION: 1. No evidence of appendicitis, diverticulitis or intestinal obstruction. 2. Left double-J stent with left upper ureter stone and left kidney upper pole stone. Left hydronephrotic changes. Bilateral kidney cysts. 3. Constipation. 4. Hepatomegaly with Fat infiltration Abdomen X-Ray 11/07/24 07:34 IMPRESSION: 1. 4 mm stone in proximal left ureter with left internal ureteral stent in expected position. Labs Labs: Laboratory Results - last 24 hr 11/09/24 06:31 WBC 12.5 H RBC 4.43 Hgb 12.8 Hct 40.4 MCV 91.2 MCH 28.9 MCHC 31.7 L RDW 13.2 Plt Count 288 MPV 9.1 Immature Gran % (Auto) 1.1 H Neut % (Auto) 53.7 Lymph % (Auto) 33.3 Cowley % (Auto) 6.6 Eos % (Auto) 4.5 H Baso % (Auto) 0.8 Lymph # (Auto) 4.17 H Cowley # (Auto) 0.8 H Eos # (Auto) 0.6 H Baso # (Auto) 0.1 Abs Immat Gran (auto) 0.14 H Absolute Neuts (auto) 6.7 Absolute Nucleated RBC 0.000 Nucleated RBC % 0.0 Sodium 136 L Potassium 4.0 Chloride 100 Carbon Dioxide 29 Anion Gap 7 BUN 13 D Creatinine 0.66 L Estim Creat Clear Calc 98 Estimated GFR > 60 Glucose 84 Calcium 8.2 L Total Bilirubin 0.4 AST 25 ALT 60 H Alkaline Phosphatase 112 Total Protein 6.0 L Albumin 3.6
--- NOTE | 2024-11-09 12:22 | P.DS_ITS ---
DS: Summary Time Spent with Patient Time attestation: Total time spent providing and/or coordinating discharge services: DS: Data Data Completed and Pending Labs on day of discharge: Labs from last 24 hours 11/09/24 06:31 WBC 12.5 H RBC 4.43 Hgb 12.8 Hct 40.4 MCV 91.2 MCH 28.9 MCHC 31.7 L RDW 13.2 Plt Count 288 MPV 9.1 Immature Gran % (Auto) 1.1 H Neut % (Auto) 53.7 Lymph % (Auto) 33.3 Bracken % (Auto) 6.6 Eos % (Auto) 4.5 H Baso % (Auto) 0.8 Lymph # (Auto) 4.17 H Bracken # (Auto) 0.8 H Eos # (Auto) 0.6 H Baso # (Auto) 0.1 Abs Immat Gran (auto) 0.14 H Absolute Neuts (auto) 6.7 Absolute Nucleated RBC 0.000 Nucleated RBC % 0.0 Sodium 136 L Potassium 4.0 Chloride 100 Carbon Dioxide 29 Anion Gap 7 BUN 13 D Creatinine 0.66 L Estim Creat Clear Calc 98 Estimated GFR > 60 Glucose 84 Calcium 8.2 L Total Bilirubin 0.4 AST 25 ALT 60 H Alkaline Phosphatase 112 Total Protein 6.0 L Albumin 3.6 Preliminary micro results at discharge 11/06/24 10:09 Blood Culture - Preliminary Blood 11/06/24 10:28 Blood Culture - Preliminary Blood Discharge Plan Discharge Attending physician on discharge: Raquel Muhammad Consulting providers: Rob Elizabeth Discharging Clinician: Pedrito Jose Patient Disposition: Home, Self-Care Activity: as tolerated Diet: heart healthy Discharge Instructions: patient to follow discharge care instruction from her urologist and follow up as scheduled, patient to follow up with her primary care provider as soon as possible, patient is instructed if any symptoms redevelop to go to nearest ER. Patient Instructions: Antibiotic Form Patient Language: Citizen Of [place] Stand Alone Forms: General Discharge Information Follow-up/Referrals: Rob Elizabeth MD [Physician] - Lexis Macdonald FNP-C [Primary Care Provider] - Discharge Medications: New oxycodone-acetaminophen 5-325 mg Tablet 1 tablet PO Q4H PRN (Reason: Pain Rated 4-6) Qty: 20 0RF oxybutynin chloride 5 mg Tablet 5 mg PO TID Qty: 30 0RF sertraline [Zoloft] 50 mg Tablet 200 mg PO QHS Qty: 30 0RF sennosides-docusate sodium [Senokot-S] 8.6-50 mg Tablet 1 tab-cap PO BID Qty: 20 0RF dicyclomine 10 mg Capsule 20 mg PO QID PRN (Reason: Abdominal Cramping) Qty: 20 0RF Continued phentermine 37.5 mg tablet 37.5 mg PO DAILY sertraline 100 mg tablet 200 mg PO QHS Qty: 180 0RF Rx Instructions: LAST REFILL, NEEDS APPOINTMENT Date of admission: 11/08/24 17:19 Primary Care Provider: Lexis Macdonald Admitting Provider: Cheryl Gracia Attending physician on admission: Raquel Muhammad Condition: Stable
--- OUTSIDE RECORDS SUMMARY | 2024-11-12 05:29 | XMS_ITS | Encounter Summary ---
Author Organization 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 [employer] Gender Identity Not on file Sexual Orientation Not on file documented as of this encounter Plan of Treatment Not on file documented as of this encounter Procedures Procedure Name Priority Date/Time Associated Diagnosis Comments OBSTETRIC/GYNECOLOGY ULTRASONOGRAPHY REPORT 11/13/2017 1:55 PM DINKEY OPERATOR [employer]ATE OBSTETRIC/GYNECOLOGY ULTRASONOGRAPHY REPORT 10/22/2017 10:34 AM DINKEY OPERATOR SLATE documented in this encounter Results * OBSTETRIC/GYNECOLOGY ULTRASONOGRAPHY REPORT (11/13/2017 1:55 PM DINKEY OPERATOR SLATE) Anatomical Region Laterality Modality Ultrasound us Provider Scanning IMG OB US PROCEDURES Final Res ult * OBSTETRIC/GYNECOLOGY ULTRASONOGRAPHY REPORT (10/22/2017 10:34 AM DINKEY OPERATOR SLATE) Anatomical Region Laterality Modality Ultrasound us Provider Scanning IMG OB US PROCEDURES Final Res ult documented in this encounter Visit Diagnoses Not on filedocumented in this encounter Care Teams Safety Sitter Relationship Specialty Start Date End Date Clementine Kelsey MD PCP - General 06/11/17 documented as of this encounter
--- OUTSIDE RECORDS SUMMARY | 2024-11-12 05:29 | XMS_ITS | Data Portability ---
Author Organization [place] - [facility] [place], Main Office Address [address] [place] [address] Care Team Providers Care Sewer Connector Name Role Phone LASHAY SZYMANSKI Primary Care Provider LASHAY SZYMANSKI Referring Provider Assessment No assessment recorded. Plan of Treatment Reminders Order Date Submit Date Provider Last Modified By Organization Details Last Modified Time Details Appointments None recorded. Lab CBC 2022 023 [facility] (Lab), [address] [place], [address], 3 03:07:46 TSH, serum or plasma 2022 023 [facility] (Lab), [address] [place], [address], 3 16:01:44 CMP, serum or plasma 2022 023 [facility] (Lab), [address] [place], [address], 3 03:07:43 HbA1c (hemoglobin A1c), blood 2022 023 [facility] (Lab), [address] [place], [address], 3 03:07:48 lipid panel, serum 2022 023 [facility] (Lab), [address] [place], [address], 3 03:07:47 urinalysis, complete 2022 023 [email or web address] [facility] (Lab), [address] [facility], [place], [address], 3 16:01:19 Referral physical therapist referral - *Please call pt to schedule* 2022 023 [email or web address] 256 [facility], [address], [place], [address], 3 09:10:51 orthopedic surgeon referral 2022 023 [email or web address] 3 [facility], [address], [place], [address], 3 07:49:37 Procedures None recorded. Surgeries None recorded. Imaging electromyog adama + nerve conduction study - Bilat Upper Extrem Please call pt to schedule 2022 [email or web address] [place] [address] (Cardiology & Emg), [address], [place], [address], 3 08:57:17 Medication Orders phentermine 37.5 mg tablet 2022 023 [facility], [address] [place], [place], [id number], 3 08:28:09 topiramate 25 mg tablet 2022 023 [id number], [address] [place], [place], [id number], 3 08:28:08 gabapentin 100 mg capsule 2022 023 [email or web address] 5 [facility], [address] [place], [place], [id number], 13:37:15 Patient TargetsNo targets recorded. Patient InstructionsNo instructions recorded. Reason for Referral Physical Therapist Referral for Pain of left shoulder joint *Please call pt to schedule* Referring Physician: Dotty Corbin [facility], Encounter Date: 08/14/2023 Orthopedic Surgeon Referral for Bilateral carpal tunnel syndrome Referring Physician: Dotty Corbin [facility], Encounter Date: 08/14/2023 Results Created Date Observation Date Name Description Value Unit Range Abnormal Flag Note LastModifiedBy Organization Detail LastModifiedTime 08/14/2008/15/2023 COMP. METAB OLIC PANEL (14) glucose 108 mg/dL 70-99 above high normal Not Available [facility] ([facility]) [address] [place], [address], 08/17/2023 03:07:43 08/14/2008/15/2023 COMP. METAB OLIC PANEL (14) BUN 11 mg/dL 6-24 Not Available [facility] ([facility]) [address] [place], [address], 08/17/2023 03:07:43 08/14/2008/15/2023 COMP. METAB OLIC PANEL (14) creatinine 0.69 mg/dL 0.57-1 .00 Not Available [facility] ([facility]) [address] [place], [address], 08/17/2023 03:07:43 08/14/2008/15/2023 COMP. METAB OLIC PANEL (14) eGFR 112 mL/mi n/1.7 3 >59 Not Available [facility] ([facility]) [address] [place], [address], 08/17/2023 03:07:43 08/14/2008/15/2023 COMP. METAB OLIC PANEL (14) BUN/creatini ne ratio 16 9-23 Not Available [facility] ([facility]) [address] [facility], [place], [address], 08/17/2023 03:07:43 08/14/2008/15/2023 COMP. METAB OLIC PANEL (14) sodium 138 mmol/ L 134-14 4 Not Available [facility] ([facility]) [address] [facility], [place], [address], 08/17/2023 03:07:43 08/14/2008/15/2023 COMP. METAB OLIC PANEL (14) potassium 4.0 mmol/ L 3.5-5. 2 Not Available [facility] ([facility]) [address] [facility], [place], [address], 08/17/2023 03:07:43 08/14/2008/15/2023 COMP. METAB OLIC PANEL (14) chloride 102 mmol/ L 96-106 Not Available [facility] ([facility]) [address] [facility], [place], [address], 08/17/2023 03:07:43 08/14/2008/15/2023 COMP. METAB OLIC PANEL (14) carbon dioxide, total 24 mmol/ L 20-29 Not Available [facility] ([facility]) [address] [facility], [place], [address], 08/17/2023 03:07:43 08/14/2008/15/2023 COMP. METAB OLIC PANEL (14) calcium 9.4 mg/dL 8.7-10 .2 Not Available [facility] ([facility]) [address] [place], [address], 08/17/2023 03:07:43 08/14/2008/15/2023 COMP. METAB OLIC PANEL (14) protein, total 7.4 g/dL 6.0-8. 5 Not Available [facility] ([facility]) [address] [place], [address], 08/17/2023 03:07:43 08/14/20 23 08/15/2023 COMP. METAB OLIC PANEL (14) albumin 4.7 g/dL 3.9-4. 9 Not Available [facility] ([facility]) [address] [facility], [place], [address], 08/17/2023 03:07:43 08/14/2008/15/2023 COMP. METAB OLIC PANEL (14) globulin, total 2.7 g/dL 1.5-4. 5 Not Available [facility] ([facility]) [address] [facility], [place], [address], 08/17/2023 03:07:43 08/14/2008/15/2023 COMP. METAB OLIC PANEL (14) A/G ratio 1.7 1.2-2. 2 Not Available [facility] ([facility]) [address] [facility], [place], [address], 08/17/2023 03:07:43 08/14/2008/15/2023 COMP. METAB OLIC PANEL (14) bilirubin, total 0.4 mg/dL 0.0-1. 2 Not Available [facility] ([facility]) [address] [facility], [place], [address], 08/17/2023 03:07:43 08/14/2008/15/2023 COMP. METAB OLIC PANEL (14) alkaline phosphatase 111 IU/L 44-121 Not Available [facility] ([facility]) [address] [facility], [place], [address], 08/17/2023 03:07:43 08/14/2008/15/2023 COMP. METAB OLIC PANEL (14) AST (SGOT) 19 IU/L 0-40 Not Available [facility] ([facility]) [address] [facility], [place], [address], 08/17/2023 03:07:43 08/14/2008/15/2023 COMP. METAB OLIC PANEL (14) ALT (SGPT) 19 IU/L 0-32 Not Available [facility] ([facility]) [address] [facility], [place], [address], 08/17/2023 03:07:43 08/14/2008/15/2023 UA/M W/RFL X CULTU RE, ROUTI NE specific gravity 1.020 1.005- 1.030 Not Available [facility] ([facility]) [address] [facility], [place], [address], 08/17/2023 03:07:45 08/14/2008/15/2023 UA/M W/RFL X CULTU RE, ROUTI NE pH 6.0 5.0-7. 5 Not Available [facility] ([facility]) [address] [facility], [place], [address], 08/17/2023 03:07:45 08/14/2008/15/2023 UA/M W/RFL X CULTU RE, ROUTI NE urine-color Yellow yellow Not Available [facility] ([facility]) [address] [place], [address], 08/17/2023 03:07:45 08/14/2008/15/2023 UA/M W/RFL X CULTU RE, ROUTI NE appearance Cloudy clear abnormal Not Available [facility] ([facility]) [address] [place], [address], 08/17/2023 03:07:45 08/14/2008/15/2023 UA/M W/RFL X CULTU RE, ROUTI NE WBC esterase 2+ negati ve abnormal Not Available [facility] ([facility]) [address] [place], [address], 08/17/2023 03:07:45 08/14/2008/15/2023 UA/M W/RFL X CULTU RE, ROUTI NE protein Negati ve negati ve/tra ce Not Available [facility] ([facility]) [address] [place], [address], 08/17/2023 03:07:45 08/14/2008/15/2023 UA/M W/RFL X CULTU RE, ROUTI NE glucose Negati ve negati ve Not Available [facility] ([facility]) [address] [place], [address], 08/17/2023 03:07:45 08/14/2008/15/2023 UA/M W/RFL X CULTU RE, ROUTI NE ketones Negati ve negati ve Not Available [facility] ([facility]) [address] [place], [address], 08/17/2023 03:07:45 08/14/2008/15/2023 UA/M W/RFL X CULTU RE, ROUTI NE occult blood Negati ve negati ve Not Available [facility] ([facility]) [address] [place], [address], 08/17/2023 03:07:45 08/14/2008/15/2023 UA/M W/RFL X CULTU RE, ROUTI NE bilirubin Negati ve negati ve Not Available [facility] ([facility]) [address] [place], [address], 08/17/2023 03:07:45 08/14/2008/15/2023 UA/M W/RFL X CULTU RE, ROUTI NE urobilinogen ,semi-qn 0.2 mg/dL 0.2-1. 0 Not Available [facility] ([facility]) [address] [place], [address], 08/17/2023 03:07:45 08/14/2008/15/2023 UA/M W/RFL X CULTU RE, ROUTI NE nitrite, urine Negati ve negati ve Not Available [facility] ([facility]) [address] [facility], [place], [address], 08/17/2023 03:07:45 08/14/2008/15/2023 UA/M W/RFL X CULTU RE, ROUTI NE microscopic examination See below: Micro scopi c was indic ated and was perfo rmed. Not Available [facility] ([facility]) [address] [facility], [place], [address], 08/17/2023 03:07:45 08/14/2008/15/2023 UA/M W/RFL X CULTU RE, ROUTI NE WBC 0-5 /hpf 0 - 5 Not Available [facility] ([facility]) [address] [facility], [place], [address], 08/17/2023 03:07:45 08/14/2008/15/2023 UA/M W/RFL X CULTU RE, ROUTI NE RBC 0-2 /hpf 0 - 2 Not Available [facility] ([facility]) [address] [facility], [place], [address], 08/17/2023 03:07:45 08/14/2008/15/2023 UA/M W/RFL X CULTU RE, ROUTI NE epithelial cells (non renal) 0-10 /hpf 0 - 10 Not Available [facility] ([facility]) [address] [facility], [place], [address], 08/17/2023 03:07:45 08/14/2008/15/2023 UA/M W/RFL X CULTU RE, ROUTI NE epithelial cells (renal) SUSTAINABILITY COMMUNICATOR Not Available [facility] ([facility]) [address] [place], [address], 08/17/2023 03:07:45 08/14/2008/15/2023 UA/M W/RFL X CULTU RE, ROUTI NE casts None seen /lpf none seen Not Available [facility] ([facility]) [address] [facility], [place], [address], 08/17/2023 03:07:45 08/14/2008/15/2023 UA/M W/RFL X CULTU RE, ROUTI NE cast type SUSTAINABILITY COMMUNICATOR Not Available [facility] ([facility]) [address] [facility], [place], [address], 08/17/2023 03:07:45 08/14/2008/15/2023 UA/M W/RFL X CULTU RE, ROUTI NE crystals SUSTAINABILITY COMMUNICATOR Not Available [facility] ([facility]) [address] [facility], [place], [address], 08/17/2023 03:07:45 08/14/2008/15/2023 UA/M W/RFL X CULTU RE, ROUTI NE crystal type SUSTAINABILITY COMMUNICATOR Not Available [facility] ([facility]) [address] [facility], [place], [address], 08/17/2023 03:07:45 08/14/2008/15/2023 UA/M W/RFL X CULTU RE, ROUTI NE mucus threads SUSTAINABILITY COMMUNICATOR Not Available [facility] ([facility]) [address] [facility], [place], [address], 08/17/2023 03:07:45 08/14/2008/15/2023 UA/M W/RFL X CULTU RE ROUTI NE bacteria Few none seen/f ew Not Available [facility] ([facility]) [address] [facility], [place], [address], 08/17/2023 03:07:45 08/14/2008/15/2023 UA/M W/RFL X CULTU RE ROUTI NE yeast SUSTAINABILITY COMMUNICATOR Not Available [facility] ([facility]) [address] [facility], [place], [address], 08/17/2023 03:07:45 08/14/2008/15/2023 UA/M W/RFL X CULTU RE, ROUTI NE trichomonas SUSTAINABILITY COMMUNICATOR Not Available [facility] ([facility]) [address] [facility], [place], [address], 08/17/2023 03:07:45 08/14/2008/15/2023 UA/M W/RFL X CULTU RE, ROUTI NE comment SUSTAINABILITY COMMUNICATOR Not Available [facility] ([facility]) [address] [facility], [place], [address], 08/17/2023 03:07:45 08/14/2008/15/2023 UA/M W/RFL X CULTU RE, ROUTI NE microscopic examination SUSTAINABILITY COMMUNICATOR Not Available [facility] ([facility]) [address] [facility], [place], [address], 08/17/2023 03:07:45 08/14/2008/15/2023 UA/M W/RFL X CULTU RE, ROUTI NE urinalysis reflex Commen t This speci men has refle xed to a Urine Cultu re. Not Available [facility] ([facility]) [address] [facility], [place], [address], 08/17/2023 03:07:45 08/14/2008/16/2023 UA/M W/RFL X CULTU RE, ROUTI NE urine culture, routine Final report Not Available [facility] ([facility]) [address] [facility], [place], [address], 08/17/2023 03:07:45 08/14/2008/16/2023 UA/M W/RFL X CULTU RE, ROUTI NE result 1 No growth Not Available [facility] ([facility]) [address] [facility], [place], [address], 08/17/2023 03:07:45 08/14/2008/15/2023 CBC, NO DIFFE RENTI AL/PL ATELE T WBC 9.0 x10e3 /uL 3.4-10 .8 Not Available [facility] ([facility]) [address] [facility], [place], [address], 08/17/2023 03:07:46 08/14/2008/15/2023 CBC, NO DIFFE RENTI AL/PL ATELE T RBC 4.83 x10e6 /uL 3.77-5 .28 Not Available [facility] ([facility]) [address] [place], [address], 08/17/2023 03:07:46 08/14/2008/15/2023 CBC, NO DIFFE RENTI AL/PL ATELE T hemoglobin 14.2 g/dL 11.1-1 5.9 Not Available [facility] ([facility]) [address] [place], [address], 08/17/2023 03:07:46 08/14/2008/15/2023 CBC, NO DIFFE RENTI AL/PL ATELE T hematocrit 43.4 % 34.0-4 6.6 Not Available [facility] ([facility]) [address] [place], [address], 08/17/2023 03:07:46 08/14/2008/15/2023 CBC, NO DIFFE RENTI AL/PL ATELE T MCV 90 fL 79-97 Not Available [facility] ([facility]) [address] [place], [address], 08/17/2023 03:07:46 08/14/2008/15/2023 CBC, NO DIFFE RENTI AL/PL ATELE T MCH 29.4 pg 26.6-3 3.0 Not Available [facility] ([facility]) [address] [place], [address], 08/17/2023 03:07:46 08/14/2008/15/2023 CBC, NO DIFFE RENTI AL/PL ATELE T MCHC 32.7 g/dL 31.5-3 5.7 Not Available [facility] ([facility]) [address] [place], [address], 08/17/2023 03:07:46 08/14/2008/15/2023 CBC, NO DIFFE RENTI AL/PL ATELE T RDW 12.2 % 11.7-1 5.4 Not Available [facility] ([facility]) [address] [place], [address], 08/17/2023 03:07:46 08/14/2008/15/2023 CBC, NO DIFFE RENTI AL/PL ATELE T NRBC SUSTAINABILITY COMMUNICATOR Not Available [facility] ([facility]) [address] [place], [address], 08/17/2023 03:07:46 08/14/2008/15/2023 LIPID PANEL cholesterol, total 251 mg/dL 100-19 9 above high normal Not Available [facility] ([facility]) [address] [place], [address], 08/17/2023 03:07:47 08/14/2008/15/2023 LIPID PANEL triglyceride s 117 mg/dL 0-149 Not Available [facility] ([facility]) [address] [place], [address], 08/17/2023 03:07:47 08/14/2008/15/2023 LIPID PANEL HDL cholesterol 60 mg/dL >39 Not Available [facility] ([facility]) [address] [place], [address], 08/17/2023 03:07:47 08/14/2008/15/2023 LIPID PANEL VLDL cholesterol alysha 21 mg/dL 5-40 Not Available [facility] ([facility]) [address] [place], [address], 08/17/2023 03:07:47 08/14/2008/15/2023 LIPID PANEL LDL chol calc ([facility]) 170 mg/dL 0-99 above high normal Not Available [facility] ([facility]) [address] [place], [address], 08/17/2023 03:07:47 08/14/2008/15/2023 LIPID PANEL comment: SUSTAINABILITY COMMUNICATOR Not Available [facility] ([facility]) [address] [place], [address], 08/17/2023 03:07:47 08/14/2008/15/2023 TSH TSH 1.810 uIU/m L 0.450- 4.500 Not Available [facility] ([facility]) [address] [place], [address], 08/17/2023 03:07:48 08/14/2008/15/2023 HEMOG LOBIN A1C hemoglobin A1C 5.1 % 4.8-5. 6 Predi abete s: 5.7 - 6.4 Diabe loree: >6.4 Glyce anabel contr ol for adult s with diabe loree: <7.0 Not Available [facility] ([facility]) [address] [facility], [place], [address], 08/17/2023 03:07:48 09/02/2009/02/2022 XR, chest No observ ation record ed. [id number] [facility] [address], [place], [address], 12/19/2022 02:46:47 Result Notes None recorded. Problems Name Problem SNOMED Code Status Onset Date Resolution Date Notes Provider Name and Address Organization Details Recorded Time Obsessive- compulsive disorder 238035830 Active Not Available [employer] 3 02:39:49 Mixed anxiety and depressive disorder 169477684 Active 2016 Not Available [facility] 3 02:39:49 Overweight 630139112 Active 2016 Not Available [facility] 3 02:39:49 Low back pain 671714173 Active Not Available [facility] 3 02:39:49 Fever 509261944 Active Not Available [facility] 3 02:39:49 Dysuria 33078332 Active Not Available [facility] 3 02:39:49 Irregular intermenst rual bleeding 47626998 Active 2016 Not Available [facility] 3 02:39:49 Urinary tract infectious disease 90479900 Active 2016 Not Available [facility] 3 02:39:49 Obesity 113473982 Active 2022 BRUNA Red [address], [place], [address] , [employer] 3 17:52:46 Bilateral carpal tunnel syndrome 1718570385769 9101 Active 2022 FRANKY Khan [address], [address], [place], [address] , [employer] 3 08:58:01 Pain of left shoulder joint 5971903785224 9109 Active 2022 FRANKY Khan [address], [address], [place], [address] , [employer] 3 09:00:30 Problem Notes None recorded. Procedures Surgical History Date Name Laterality Status Provider Name and Address Organization Details Recorded Time 01/04/20 20 Date of Last Pap Smear completed Not Available [facility] 12/19/2022 02:34:21 05/28/20 18 [employer] Surgery completed Not Available [facility] 12/19/2022 02:34:23 10/27/19 07 HARBOR [employer]TAIN Surgery completed Not Available [facility] 12/19/2022 02:34:23 Appendectomy completed Not Available [facility] 12/19/2022 02:34:23 HARBOR [employer]UG [employer] Surgery completed Not Available [facility] 12/19/2022 02:34:23 cholecystectomy completed Not Available [facility] 12/19/2022 02:34:23 Imaging Results Imaging Date Name Status LastModified by Organiz ation Details LastModified Time 09/02/2022 XR, chest completed [id number] [facility] [address], [place], [address], 12/19/2022 02:46:47 Procedure Notes None recorded. Medical Equipment None Reported. Allergies Allergen ID Allergen Name Allergen Category Reaction Reaction Severity Criticality Documentation Date Start Date Code Code System Note Provider Name and Address Organization Details Recorded Time 3589 Robitussi n medicatio n irregular heart rate Not available Not available 12/19/2022 98700 2 RxNorm Not Available [facility] 3 02:46:28 3590 brompheni ramine / phenyleph rine medicatio n irregular heart rate Not available Not available 12/19/2022 01802 4 RxNorm Not Available [facility] 3 02:46:28 Medications Name Sig Start Date Stop Date Status Note LastModified by Organization Details LastModified Time nifedipin e ER 30 mg tablet,ex tended release 24 hr 04/07 completed Not Available Not Available Not Available quetiapin e 25 mg tablet 1 po qhs x 7 days then increase to 2 po qhs active Not Available Not Available No t Available celecoxib 200 mg capsule 02/25 completed Not Available Not Available Not Available cyclobenz aprine 10 mg tablet TAKE 1 TABLET BY MOUTH THREE TIMES DAILY NEEDED active Not Available Not Available No t Available amoxicill in 500 mg capsule TK ONE C PO TID TAT 05/19 completed Not Available Not Available Not Available terbutali ne 2.5 mg tablet 02/25 completed Not Available Not Available Not Available doxycycli ne hyclate 100 mg capsule 09/20 completed Not Available Not Available Not Available paroxetin e 10 mg tablet Take 1 tablet every day by oral route. 04/07 completed Not Available Not Available Not Available loperamid e 2 mg capsule TAKE 2 CAPSULES BY MOUTH EVERY DAY DIRECTED active Not Available Not Available No t Available fluconazo le 150 mg tablet TAKE 1 TABLET BY MOUTH ONCE DIRECTED 05/16 completed Not Available Not Available Not Available clomiphen e citrate 50 mg tablet 09/20 completed Not Available Not Available Not Available valacyclo vir 1 gram tablet Take 1 tablet every 12 hours by oral route for 7 days. active Not Available Not Available No t Available hydrocodo ne 5 mg-acetam inophen 325 mg tablet TK 1 T PO Q 4 TO 6 H PRN P 05/19 completed Not Available Not Available Not Available phenazopy ridine 200 mg tablet 09/20 completed Not Available Not Available Not Available prednison e 20 mg tablet TAKE 1 TABLET BY MOUTH DAILY 05/16 completed Not Available Not Available Not Available sertralin e 100 mg tablet TAKE 2 TABLETS BY MOUTH EVERY DAY AT BEDTIME active Not Available Not Available No t Available loperamid e 2 mg tablet Take 2 tablets every day by oral route as needed. active Not Available Not Available No t Available Zithromax Z-Finesse 250 mg tablet TAKE 2 TABLETS (500 MG) BY ORAL ROUTE ONCE DAILY FOR 1 DAY THEN 1 TABLET (250 MG) BY ORAL ROUTE ONCE DAILY FOR 4 DAYS active Not Available Not Available No t Available topiramat e 25 mg tablet TAKE 1 TABLET DAILY 2022 active Not Available Not Available Not Avai lable metronida zole 500 mg tablet 02/25 completed Not Available Not Available Not Available phentermi ne 37.5 mg tablet TAKE 1 TABLET BY MOUTH EVERY DAY active Not Available Not Available No t Available valacyclo vir 500 mg tablet 07/24 completed Not Available Not Available Not Available ciproflox acin 500 mg tablet 09/20 completed Not Available Not Available Not Available sulfameth oxazole 800 mg-trimet hoprim 160 mg tablet Take 1 tablet every 12 hours by oral route for 3 days. active Not Available Not Available No t Available hydrocodo ne 10 mg-acetam inophen 325 mg tablet Take 1 tablet every 4 hours by oral route as needed. active Not Available Not Available No t Available aspirin 81 mg tablet,de layed release TK 1 T PO QD 02/25 completed Not Available Not Available Not Available butalbita l-acetami nophen-ca ffeine 50 mg-325 mg-40 mg tablet 04/07 completed Not Available Not Available Not Available ketorolac 10 mg tablet 01/24 completed Not Available Not Available Not Available levothyro xine 100 mcg tablet 02/25 completed Not Available Not Available Not Available oxycodone -acetamin ophen 5 mg-325 mg tablet 04/07 completed Not Available Not Available Not Available alprazola m 0.5 mg tablet 01/24 completed Not Available Not Available Not Available amoxicill in 875 mg tablet Take 1 tablet every 12 hours by oral route for 7 days active Not Available Not Available No t Available alprazola m 0.25 mg tablet 07/24 completed Not Available Not Available Not Available clindamyc in 1 % topical gel APPLY A THIN LAYER TO THE AFFECTED AREA(S) BY TOPICAL ROUTE 2 TIMES PER DAY 01/30 completed Not Available Not Available Not Available trazodone 100 mg tablet 1 po qhs prn insomnia 30-60 minutes before bedtime active Not Available Not Available No t Available dicyclomi ne 20 mg tablet TK 1 T PO Q 6 H PRF ABDOMINA L PAIN active Not Available Not Available No t Available nifedipin e 10 mg capsule 04/07 completed Not Available Not Available Not Available Proctozon e-HC 2.5 % topical cream perineal applicato r APPLY A THIN LAYER TO THE AFFECTED AREA(S) BY TOPICAL ROUTE 2-4 TIMESDAI LY prn 09/09 completed Not Available Not Available Not Available benzonata te 100 mg capsule Take 1 capsule 3 times a day by oral route. 03/08 completed Not Available Not Available Not Available oseltamiv ir 75 mg capsule TAKE 1 CAPSULE BY MOUTH EVERY 12 HOURS FOR 5 DAYS active Not Available Not Available No t Available dexametha sone 4 mg tablet 04/07 completed Not Available Not Available Not Available misoprost ol 200 mcg tablet 04/07 completed Not Available Not Available Not Available promethaz ine 25 mg tablet Take 1 tablet every 4 hours by oral route as needed. 04/07 completed Not Available Not Available Not Available indometha maria del carmen 25 mg capsule 04/07 completed Not Available Not Available Not Available progester one micronize d 200 mg capsule TK 1 C PO BID 04/07 completed Not Available Not Available Not Available diclofena c sodium 75 mg tablet,de layed release Take 1 tablet twice a day by oral route. active Not Available Not Available No t Available hydroxyzi ne HCl 25 mg tablet Take 1 tablet 3 times a day by oral route as needed. active Not Available Not Available No t Available norethind tyler acetate 5 mg tablet 07/24 completed Not Available Not Available Not Available gabapenti n 100 mg capsule Take 1 capsule 3 times a day by oral route for 30 days. 2022 active Not Available Not Available Not Avai lable ibuprofen 600 mg tablet 04/07 completed Not Available Not Available Not Available oxycodone -acetamin ophen 7.5 mg-325 mg tablet 04/07 completed Not Available Not Available Not Available letrozole 2.5 mg tablet 03/26 completed Not Available Not Available Not Available methylpre dnisolone 4 mg tablets in a dose pack active Not Available Not Available Not Available ondansetr on 4 mg disintegr ating tablet 04/07 completed Not Available Not Available Not Available fluticaso ne propionat e 50 mcg/actua tion nasal spray,tucker pension SHAKE LIQUID AND USE 2 SPRAYS IN EACH NOSTRIL DAILY active Not Available Not Available No t Available sertralin e 50 mg tablet Take 1 tablet every day by oral route. 01/22 completed Not Available Not Available Not Available phentermi ne 37.5 mg capsule TK 1 C PO QD active Not Available Not Available No t Available spironola ctone 50 mg tablet 01/24 completed Not Available Not Available Not Available amoxicill in 875 mg-potass ium clavulana te 125 mg tablet Take 1 tablet every 12 hours by oral route for 10 days. 01/22 completed Not Available Not Available Not Available NuvaRing 0.12 mg-0.015 mg/24 hr vaginal 01/24 completed Not Available Not Available Not Available escitalop adama 10 mg tablet 02/25 completed Not Available Not Available Not Available acyclovir 5 % topical cream APPLY TO THE AFFECTED AREA(S) BY TOPICAL ROUTE 5 TIMES PER DAY active Not Available Not Available No t Available Ovidrel 250 mcg/0.5 mL subcutane ous syringe active Not Available Not Available Not Available nitrofura ntoin monohydra te/macroc rystals 100 mg capsule Take 1 capsule twice a day by oral route for 7 days. 05/16 completed Not Available Not Available Not Available Folgard RX 2.2 mg-25 mg-1 mg tablet TK 1 T PO BID 04/07 completed Not Available Not Available Not Available lidocaine (PF) 10 mg/mL (1 %) injection solution Inject 1-5 ml locally to anesthet ize area active Not Available Not Available No t Available ProAir HFA 90 mcg/actua tion aerosol inhaler Inhale 2 puffs every 4 hours by inhalati on route as needed. active Not Available Not Available No t Available Mucinex DM 60 mg-1,200 mg tablet,ex tended release 12 hr Take 1 tablet twice a day by oral route as directed . 03/08 completed Not Available Not Available Not Available Xifaxan 550 mg tablet Take 1 tablet 3 times a day by oral route for 14 days. 2021 active Not Available Not Available Not Avai lable Suprep Bowel Prep Kit 17.5 gram-3.13 gram-1.6 gram oral solution 09/20 completed Not Available Not Available Not Available Viibryd 10 mg tablet 1 tab po daily for 7 days, then 1 tab po bid. 03/15 completed changed to paroxeti ne Not Available Not Available Not Available Camrese 0.15 mg-30 mcg (84)/10 mcg(7) tablets,3 month dose pack Take 1 tablet every day by oral route. 01/30 completed Not Available Not Available Not Available Viorele (28) 0.15 mg-0.02 mg (21)/0.01 mg (5) tablet 07/24 completed Not Available Not Available Not Available Virt-PN DHA 27 mg iron-1 mg-300 mg capsule Take 1 daily (prenata l) 07/24 completed Not Available Not Available Not Available Gonal-F RFF Redi-Ject 450 unit/0.75 mL subcutane ous pen injector active Not Available Not Available Not Available Viibryd 10 mg (7)-20 mg (23) tablets in a dose pack take as directed active Not Available Not Available No t Available Flowflex COVID-19 Antigen Home Test kit active Not Available Not Available Not Available Vitals Date Recorded Body mass index (BMI) Body height Oxygen saturation Oxygen saturation in Arterial blood by Pulse oximetry Heart rate Body temperature Body weight Systolic blood pressure Diastolic blood pressure Provider Name and Address Organization Details Last Updated DateTime 2 32.9 kg/m2 157.48 cm 98.02 % 98.02 % 60 /min 97.2 [degF] 12633.6 3 g 118 mm[Hg] 64 mm[Hg] Not Available [facility] 3 02:38:49 Date Recorded Body mass index (BMI) Body height Oxygen saturation Oxygen saturation in Arterial blood by Pulse oximetry Heart rate Respiratory rate Body temperature Body weight Systolic blood pressure Diastolic blood pressure Provider Name and Address Organization Details Last Updated DateTime 2 31.1 kg/m2 157.48 cm 98 % 98 % 82 /min 16 /min 98.2 [degF] 88430.7 g 116 mm[Hg] 74 mm[Hg] Not Available [facility] 3 02:38:49 Date Recorded Body mass index (BMI) Body height Oxygen saturation Oxygen saturation in Arterial blood by Pulse oximetry Heart rate Body temperature Body weight Systolic blood pressure Diastolic blood pressure Provider Name and Address Organization Details Last Updated DateTime 3 31.1 kg/m2 157.48 cm 98 % 98 % 86 /min 98.1 [degF] 17335.7 g 110 mm[Hg] 68 mm[Hg] Not Available [facility] 3 02:38:49 Date Recorded Body height Body mass index (BMI) Body weight Heart rate Oxygen saturation Oxygen saturation in Arterial blood by Pulse oximetry Systolic blood pressure Diastolic blood pressure Provider Name and Address Organization Details Last Updated DateTime 3 157.48 cm 32.2 kg/m2 46255.2 6 g 96 /min 98 % 98 % 125 mm[Hg] 90 mm[Hg] Jenna De Leon MA [employer] [facility] 3 08:03:46 Date Recorded Body temperature Provider Name a il Address Organization Details Last Updated DateTime 02/05/2023 97.5 [degF] Rod Nieves [address] [place] [address], [address], [address], [place] [facility] 02/05/2023 08:08:35 Date Recorded Body height Body mass index (BMI) Body weight Body temperature Heart rate Oxygen saturation Oxygen saturation in Arterial blood by Pulse oximetry Systolic blood pressure Diastolic blood pressure Provider Name and Address Organization Details Last Updated DateTime 3 157.48 cm 34.8 kg/m2 81202.5 5 g 100.3 [degF] 85 /min 98 % 98 % 124 mm[Hg] 80 mm[Hg] Gena Zhao CNA [place] [facility] 3 08:38:58 Social History Question Answer Notes LastModified by Organizat ion Details LastModified Time Tobacco Smoking Status Current Every Day Smoker Not Available [facility] 12/19/2022 02:33:54 What Is Your Level Of Alcohol Consumption? Occasional [id number] Information not available 12/19/2022 What Is Your Level Of Caffeine Consumption? Occasional [id number] Information not available 12/19/2022 In The 14 Days Before Symptom Onset, Have You Had Close Contact With A Laboratory-confir med COVID-19 While That Case Was Ill? No [id number] Information not available 12/19/2022 In The 14 Days Before Symptom Onset, Have You Had Close Contact With A Person Who Is Under Investigation For COVID-19 While That Person Was Ill? No [id number] Information not available 12/19/2022 Which Illicit Or Recreational Drugs Have You Used? No [id number] Information not available 12/19/2022 Do You Or Have You Ever Used E-cigarettes Or Vape? 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 No Information not available 02/05/2023 Do You Use Your Seat Belt Or Car Seat Routinely? Yes [email or web address] Information not available 02/05/2023 At What Age Did You Start Smoking Tobacco? 1 [id number] Information not available 12/19/2022 How Much Tobacco Do You Smoke? 1 PPW [id number] Information not available 12/19/2022 Do You Participate In Social Media? Yes [email or web address] Information not available 02/05/2023 Do You Feel Stressed (tense, Restless, Nervous, Or Anxious, Or Unable To Sleep At Night)? [email or web address] Information not available 02/05/2023 Has Tobacco Cessation Counseling Been Provided? No [email or web address] Information not available 02/05/2023 Sex: Unknown Functional Status Question Answer Note LastModified by Organizat ion Details LastModified Time What is your exercise level? Occasional [id number] Information not available 12/19/2022 Mental Status None recorded. Family History Relationship Description Onset Age of this Age Resolved Age Notes LastModified by Organization Details LastModified Time Father Diabetes mellitus [id number] Not available 12/19/2022 02:34:26 Father Hypertensive disorder [id number] Not available 12/19/2022 02:34:26 Notes:htn, no breast, colon, ovary cancer Medical History Condition Response ANXIETY DISORDER Gynecological History Statement/Question Response Date of LMP Date of Last Pap 01/04/2020 Date of Last Pap Smear 01/04/2020 Current Control Method Tubal Ligat ion Age at Menarche 10 Breast Problems no Discharge no Obstetrics History GPAL:G 5 P 3 0 2 2 Type Value Full Term 3 Spontaneous 2 Living 2 Total 5 Immunizations Vaccine Type Date Status Note Provider Nam e and Address Organization Details Recorded Time SARS-COV-2 (COVID-19) vaccine, UNSPECIFIED 1 completed Not Available [facility] 12/19/2022 02:46:22 Tdap 6 completed Not Available [facility] 12/19/2022 02:46:22 COVID-19, mRNA, LNP-S, PF, 30 mcg/0.3 mL dose 1 completed Not Available [facility] 12/19/2022 02:46:22 Influenza, split virus, quadrivalent, PF 8 completed Not Available [facility] 12/19/2022 02:46:22 Past Encounters Encounter ID Performer Location Encounter Start Date Encounter Closed Date Diagnosis/Indication Diagnosis SNOMED-CT Code Diagnosis ICD10 Code Diagnosis Note [id number] _MARISOL_Jose IGRATION_ DEFAULT_1 _1 , 01/30/2021 00:00:00 01/30/2021 18:24:58 [id number] [facility] [place] [address] [facility] [address] [facility] [place] [address] 04/05/2021 00:00:00 04/05/2021 13:44:03 [id number] [facility] [place] [address] [facility] [address] [place] [address] 04/12/2022 00:00:00 04/12/2022 14:15:09 [id number] [facility] [place] [address] [facility] [address] [place] [address] 05/16/2022 00:00:00 05/16/2022 12:17:29 [id number] [facility] [place] [address] [facility] [address] [place], [place] [address] 06/20/2022 00:00:00 06/20/2022 16:59:05 [id number] [facility] [place] [address] [facility] [address] [place] [address] 11/06/2022 00:00:00 11/06/2022 12:48:47 [id number] CARLTON Nieves [facility] [place] [address] [facility] [address] [place], [place] [address] 02/05/2023 07:57:01 02/05/2023 08:28:29 Dietary management surveillance [id number] Z71.3 Wt today: 176 lbs.Pt. had been off phentermin e/topirama te for about 4-6 weeks, just started back on it about a week ago. She states she is not seeing any good weight loss but she does admit that she was not consistent with the medication like she was supposed to be. Will have her continue medication daily for next 3 months, however I discussed with her if we do not see results then there is no indication to stay on medication . We did discuss injectable s but I have also advised they will likely not be covered by insurance. Encouraged her to continue to work on diet/exerc ise, start to count calories because if she is not losing weight there is not a calorie deficit somewhere and she is not burning what she is consuming. Will plan to f/u in 3 months to re-evaluat e. 11/06/22: Wt. today 170lbs. She has been off phentermin e for the last 2 months.She is still working on healthy diet. BP/HR stable. Will do another cycle of phentermin e/topirama te.F/u in 3 months. 06/20/22: Wt. today 170lbs. Her goal is around 145lbs.She has been riding a stationary bike. Still doing well with diet.Will continue phentermin e for additional 3 months, then cycle off for month. She denies any chest pain or SOB. Tolerating medication s well. BP/HR stable.F/u in 4 months. 05/16/22: 941nha704/12- 173 lbs.Has been struggling with weight loss. Her anxiety and depression also plays a role because when she is more stressed she eats more. States she has been on the phentermin e/topirama te in the past and it helped her not over eat. Discussed lifestyle modificati ons (healthy diet/exerc ise).Will start her back on phentermin e and topiramate . BP/HR stable today.F/u in 4 weeks. [id number] FRANKY Khan [facility] [address] [facility] [address] [place] [address] 08/14/2023 08:30:12 08/14/2023 12:30:42 Bilateral carpal tunnel syndrome [id number] G56.03 Renewed referral for specialist EMG to determine neuro level of involvemen tWill also start gabaneptin 100 mg TID PRN for neuropathi c pain. Discussed that this medication may make you drowsy and recommend a trial dose on the weekend and not to operate machinery. Recommend supportive brace, wrist lifts with typing, and continuing ROM exercises given at previous visit. Pain of le ft shoulder joint [id number] M25.512 acuteNo known injury. Has good ROM and strength to the shoulder. Recommend PT and continuing to use the joint to prevent decreased function. Can use alternatin g tylenol 1000 mg and ibuprofen 200-600 mg every 6 hours as needed for pain.Follo w up in one month. Overweight [id number] E66 .3 ChronicOn phentermin e 37.5 mg and has been taking for >6 months. Wasn't aware that she was recommende d. Weight gain of 20 pounds since 10/2022 and 14 pounds since 01/2023. Discussed recommenda tion of continuing to exercise daily, decrease portion sizes, consume more fruits and vegetables , and limit added sugar or sugar-cont aining beverages. Will also obtain labs today to determine if any issues with glycemia.A lso discussed that she should take topamax. Was originally prescribed this with the phentermin e but wasn't aware she was supposed to be taking it. Recommend reviewing prescripti ons and taking topiramate as directed.F ollow-up in one month. Screening for disorder [id number] Z13.9 Z13.1 Z13.29 Z13.0 Z13.220 Has been >1 year since she received basic labwork. Will obtain basic labwork and follow-up in one month. Health Concerns Section Related Observation LastModified by Organization Detai ls LastModified Time None Recorded Concern Status LastModified by Organization Details LastModified Time None Recorded Advance Directives Directive None Recorded Payers Encounter Date Sequence Insurance Name Policy Number Policy Ocampo Covered Member ID Ocampo Member ID Guarantor Name 02/05/2023 1 [facility] [id number] Pili Garcia Ellie [id number] Pili Jose Ellie 08/14/2023 1 [facility] [id number] Pili Jose Ellie [id number] Pili Jose Ellie Notes Date Note Type Note Provider Name and Address Organization Details Recorded Time 02/05/2023 text/html Pt. here to follow-up on weight loss. She has gained back weight, but states she has only been on phentermine again for about the last week, before that she had been off it. CARLTON Nieves [address] [place] [address], [place], [address], [facility] [employer] 02/05/2023 11:48:21 08/14/2023 text/html Carpal tunnel: bilateral hands. 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 Had referral to see specialist in [place] but didn't go. Has been doing exercises to help and it's not improving the pain. Currently not on medicine for the pain. Not using compression sleeve. Sometimes has locking up of the joint. Left shoulder pain: no known injury to the shoulder. Has pain in the scapula that affects her neck and upper back. Has difficulty picking up children, dressing herself in the morning. This pain has been present for the past few weeks. Hasn't tried any OTC pain relief for this pain yet. Weight loss: been taking phentermine 37.5 mg daily. Walking daily for 2.5 miles for weight loss. Was down to 170 pounds in 10/2022. The current dose isn't helping with her appetite or intake. Hasn't had a period in 5 years had an ablation. Dotty Corbin, IMAGING TECHNOLOGIST [address] [address], [place], [address], [place] [facility] 08/14/2023 13:38:48 OBGyn Episode No OBEpisode recorded.
--- OUTSIDE RECORDS SUMMARY | 2024-11-12 05:29 | XMS_ITS | Clinical Summary ---
Author Organization [facility] Address [address] [place] [address] Care Team Providers Care Security Officers And Guards Name Role Phone Clementine Kelsey MD Primary Care Provider + Allergies Active Allergy Reactions Criticality Noted Date Comments Brompheniramine Palpitations Low Diphenhydramine-Phenylephri ne Other (See comments) Low Reaction: TACHYCARDIA, Guaifenesin Other (See comments) Low Reaction: TACHYCARDIA, Phenylpropanolamine Palpitations Low Medications 85-sosx-puozxn 1-dha (VIRT-PN DHA) 27 mg iron-1 mg -300 mg capsule Take 1 tablet by mouth daily. 90 capsule 3 04/18/2018 Active HYDROcodone-fabienne taminophen (NORCO) 5-325 mg per tabletIndicatio ns:Pain Take 1-2 tablets by mouth every 4 (four) hours as needed for pain. 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 On progesterone now at 200 mg bid. History of delivery 05/08/2017 01/21/2018 Positive test 05/01/201704/20 Assessment & Plan (05/02/2017 10:48 AM CDT): IUP not confirmed today. EMC is thickened but no GS noted. Imaging more c/w possible 4 wk EGA. Check beta and prog. No leakage of amniotic fluid into vagina 01/21/2018 uterine contractions in third trimester, antepartum 01/21/2018 H/O cervical cerclage, curre ntly , third trimester 01/21/2018 Immunizations Name Administration Dates Next Due Influenza, Quadrivalent, Spl it, Preservative Free, Intramuscular 07/29/2017,07/27/2016 MMR 12/18/2017(Deferred: Other - pt status-rubella immune) Tdap 11/22/2017 Surgical History Surgery Date Site/Laterality Comments OTHER SURGICAL HISTORY 10/21/2002 - 10/20/2003 : OTHER SURGICAL HISTORY 10/21/2013 - 10/20/2014 : Spontaneaous OTHER SURGICAL HISTORY 10/21/2014 - 10/20/2015 : Missed APPENDECTOMY CERCLAGE CERVIX during current CHOLECYSTECTOMY 04/22/2018 Medical History Medical History Date Comments Hx Other Medical ; Comm ents: Cervical shortening at 21 weeks, labor. +GBBS, Amnio and Delivery at 35 weeks due to LGA growth; Outcome: 35W0D week 6lb(s) 12 oz Female Hx Other Medical Endometriosis Depression STI (sexually transmitted infection) pos hx of HSV 1 Cervical incompetence HPV (human papilloma virus) infection MTHFR deficiency complicatin g , third trimester (HCC) Social History Tobacco Use Types Packs/Day Years Used Date Smoking Tobacco: Light Smoker Smokeless Tobacco: Never Comments:socially, rarely Alcohol Use Standard Drinks/Week Comments Yes 0 (1 standard drink = 0.6 oz pur e alcohol) occasionally Comments No Sex and Gender Information Value Date Recorded Sex Assigned at Not on file 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 Gender Identity Not on file Sexual Orientation Not on file Obstetrics History Para Term AB IAB SAB Ectopic Multiple Livin g Live Births 5 3 1 2 2 2 0 3 3 Date Outcome GA Total Labor Labor/2nd/3rd Weight Sex Type Anes PTL Amna A1 A5 Name Clin 2002 35w 0d 3.033 kg (6 lb 11 oz) F Vag-S pont Epidur al Y Livin g 2013 SAB U 2014 SAB U D&C 2016 36w 0d 2.665 kg (5 lb 14 oz) F Vag-S pont Epidur al Y Livin g Blakel y Complications:Cervical incom petence 2017 Term 38w 3d 4h 13m 3h 55m/0h 11m/0h 07m 3.57 kg (7 lb 13.9 oz) F Vag-S pont Epidur al N Livin g 8 9 JANE ARGUETA Micha el J., MD Complications:None Delivery Location:[facility] ([facility] Comments preg in 2016 - saw dr cohn. Was considered for cerclage - but records indicate that she was managed medically instead. Last Filed Vital Signs Vital Sign Reading Time Taken Comments Blood Pressure 115/74 05/28/2018 10:00 AM CDT Pulse 72 05/28/2018 10:15 AM CDT Temperature 36.5 ??C (97.7 ??F) 05/28/2018 9:19 AM CD T Respiratory Rate 17 05/28/2018 10:15 AM CDT Oxygen Saturation 98% 05/28/2018 10:15 AM CDT Inhaled Oxygen Concentration - - Weight 73 kg (160 lb 15 oz) 05/28/2018 7:03 AM C DT Height 157.5 cm (5' 2 ) 05/28/2018 7:03 AM CDT Body Mass Index 29.44 05/28/2018 7:03 AM CDT Plan of Treatment Not on file Insurance [facility] CHOICE PLUS [facility] Advance Directives For more information, please contact: [phone] * Full Code (Latest Code Status on File) Date Activated Date Inactivated Comments 12/17/2017 11:18 PM 12/19/2017 2:04 PM * Full Code Date Activated Date Inactivated Comments 12/17/2017 8:21 AM 12/17/2017 11:18 PM Full CPR in case of cardiopulmonary arrest Care Teams Security Officers And Guards Relationship Specialty Start Date End Date Clementine Kelsey MD PCP - General 06/11/17
--- OUTSIDE RECORDS SUMMARY | 2024-11-12 05:29 | XMS_ITS | Referral Summary ---
Author Organization [facility] Address [address] [place] [address] Care Team Providers Care Wash Crew Person Name Role Phone Clementine Kelsey MD Primary Care Provider + Allergies Active Allergy Reactions Criticality Noted Date Comments Brompheniramine Palpitations Low Diphenhydramine-Phenylephri ne Other (See comments) Low Reaction: TACHYCARDIA, Guaifenesin Other (See comments) Low Reaction: TACHYCARDIA, Phenylpropanolamine Palpitations Low Medications 86-udom-kuybae 1-dha (VIRT-PN DHA) 27 mg iron-1 mg [...] (04/30/2018): Added automatically from request for surgery [id number] Encounter for sterilization 04/30/2018 Overview (04/30/2018): Added automatically from request for surgery [id number] Homozygous MTHFR mutation [id number] 05/30/2017 Herpes zoster without complication 05/30/2017 Resolved [...] Other - pt status-rubella immune) Tdap 11/22/2017 Social History Tobacco Use Types Packs/Day Years Used Date Smoking Tobacco: Light Smoker Smokeless Tobacco: Never Comments:socially, rarely Alcohol Use Standard Drinks/Week Comments Yes 0 (1 standard drink = 0.6 oz pur e alcohol) occasionally Comments No Sex and Gender Information Value Date Recorded Sex Assigned at Not on file Legal Sex Female 9:17 PM [employer] Gender Identity Not on file Sexual Orientation Not on file Last Filed Vital Signs Vital Sign Reading [...] Plan of Treatment Not on file Insurance [facility] Address: [address] [address] [place] [address] [facility] Address: [address] [address] [place] [address] Advance Directives For more information, please contact: [phone] * Full Code (Latest Code Status on File) Date Activated Date Inactivated Comments 12/17/2017 11:18 PM 12/19/2017 2:04 PM * Full Code Date Activated Date Inactivated Comments 12/17/2017 8:21 AM 12/17/2017 11:18 PM Full CPR in case of cardiopulmonary arrest Care Teams Wash Crew Person Relationship Specialty Start Date End Date Clementine Kelsey MD PCP - General 06/11/17
--- OUTSIDE RECORDS SUMMARY | 2024-11-12 05:29 | XMS_ITS | Clinical Summary ---
Author Organization [facility] Address [address] [place] [address]. [place], [place] [address] [place] [id number] Care Team Providers Care Dealer Sales Manager Name Role Phone Magdiel Patrick MD Primary Care Provider [phone] Ambrosio Villegas DO Unavailable [phone] Allergies No known active allergies Medications sertraline (ZOLOFT) 100 MG tablet Take 2 tablets (200 mg total) by mouth daily. Active phentermine (ADIPEX-P) 37.5 MG tablet Take 1 tablet (37.5 mg total) by mouth daily. Active tamsulosin (FLOMAX) 0.4 MG Cap Take 1 capsule (0.4 mg total) by mouth daily. 30 capsule 10/31/19 25 Active ondansetron (ZOFRAN-ODT) 4 MG disintegrating tablet Take 1 tablet (4 mg total) by mouth every 8 (eight) hours as needed for Nausea. 20 tablet 10/31/19 25 Active cefdinir (OMNICEF) 300 MG Cap capsule Take 1 capsule (300 mg total) by mouth 2 (two) times daily. Start evening dose on 11/04/24. 9 capsule 11/04/19 25 Active solifenacin (VESICARE) 5 MG tablet Take 1 tablet (5 mg total) by mouth daily. 30 tablet 11/05/19 25 Active oxyCODONE-acetamin ophen (PERCOCET) 5-325 MG tabletIndications: Acute Pain < 3 Day Supply Take 1 tablet by mouth every 6 (six) hours as needed for Pain. Indications: Acute Pain < 3 Day Supply 7 tablet 11/04/19 Active polyethylene glycol (GLYCOLAX) packetIndications: Constipation, unspecified constipation type Take 240 mLs (17 g total) by mouth daily for 14 days. Dissolve powder in 240 mL water 14 each 11/05/19 25 025 Active acetaminophen (TYLENOL) 500 MG tabletIndications: Nephrolithiasis Take 2 tablets (1,000 mg total) by mouth every 6 (six) hours as needed. 30 tablet 10/31/19 25 025 ibuprofen (MOTRIN) 400 MG tablet Take 2 tablets (800 mg total) by mouth every 6 (six) hours as needed for Pain. 40 tablet 10/31/19 25 025 Discontinu ed(Stop Taking at Discharge) HYDROcodone-acetam inophen (NORCO) 5-325 MG tabletIndications: Acute Pain < 7 Day Supply Take 1 tablet by mouth every 6 (six) hours as needed for Pain. Indications: Acute Pain < 7 Day Supply 7 tablet 10/31/19 25 025 Discontinu ed(Stop Taking at Discharge) ketorolac (TORADOL) 10 MG tablet Take 1 tablet (10 mg total) by mouth every 6 (six) hours as needed for Pain. 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 [address] Ghanshyam Patterson MD CYSTOSCOPY LEFT RETROGRADE PYELOGRAM, LEFT URETERAL STENT INSERTION 11/02/2024 3:24 PM BLOOD BANK BUSINESS MANAGER Anesthesia [place] [address] Gary Arroyo MD Portera Mankins, Sally B, MD 11/02/2024 Travel 11/01/2024 1:08 PM BLOOD BANK BUSINESS MANAGER - 11/04/2024 11:13 AM BLOOD BANK BUSINESS MANAGER Hospital Encounter [facility] [address] [place] [address] Ambrosio Villegas DO Tran, Isaac T, MD Dodt, Darah R, APRN Wolf, Brittany, PA-C Discharge Disposition: Home or Self Care (Routine Discharge) 11/01/2024 6:21 AM BLOOD BANK BUSINESS MANAGER - 11/01/2024 12:14 PM [facility] Emergency [facility] Room [address] [place] [id number] Susana Barnard DO Abdominal Pain (Left lower, known kidney stone) Discharge Disposition: Transfer to Acute Care Hospital 11/01/2024 Travel 10/31/2024 7:39 AM BLOOD BANK BUSINESS MANAGER - 10/31/2024 10:47 AM [facility] Emergency [facility] Room [address] [place] [id number] Nikolas Damon MD Abdominal Pain Discharge Disposition: Home or Self Care (Routine Discharge) 10/31/2024 Travel from Last 3 Months Immunizations Name Administration Dates Next Due Fluzone (IIV3, Trivalent, 0.5 ML Prefilled Syrin ge) 11/04/2024 Social History Tobacco Use Types Packs/Day Years Used Date Smoking Tobacco: Former Cigarettes Smokeless Tobacco: Never Tobacco Cessation:Counseling Given: Not Answered Alcohol Use Standard Drinks/Week Comments Never 0 (1 standard drink = 0.6 oz pur e alcohol) [facility] Utilities Answer Date Recorded In the past 12 months has th e electric, gas, oil, or water company threatened to shut off services in your home? No 11/01/2024 Humiliation, Afraid, Rape, and Kick questionnair e Answer Date Recorded Within the last year, have y ou been afraid of your partner or ex-partner? No 11/01/2024 Within the last year, have y ou been humiliated or emotionally abused in other ways by your partner or ex-partner? No Within the last year, have y ou been kicked, hit, slapped, or otherwise physically hurt by your partner or ex-partner? No 11/01/2024 Within the last year, have y ou been raped or forced to have any kind of sexual activity by your partner or ex-partner? No 11/01/2024 Overall Financial Resource Strain (CARDIA) Answe r Date Recorded How hard is it for you to pa y for the very basics like food, housing, medical care, and heating? Not hard at all 11/01/2024 Hunger Vital Sign Answer Date Recorded Within the past 12 months, y ou worried that your food would run out before you got the money to buy more. Never true 11/01/19 25 Within the past 12 months, t he food you bought just didn't last and you didn't have money to get more. Never true 11/01/2024 PRAPARE - Transportation Answer Date Re corded In the past 12 months, has l ack of transportation kept you from medical appointments or from getting medications? No 10/21 In the past 12 months, has l ack of transportation kept you from meetings, work, or from getting things needed for daily living? No 11/01/2024 Housing Stability Vital Sign Answer Sanju e Recorded In the last 12 months, was t here a time when you were not able to pay the mortgage or rent on time? No 11/01/2024 In the past 12 months, how m any times have you moved where you were living? 0 11/01/2024 At any time in the past 12 m [facility], were you homeless or living in a fdc (including now)? No 11/01/2024 Comments Unknown Sex and Gender Information Value Date Recorded Sex Assigned at Not on file Legal Sex Female 3:10 PM CDT Gender Identity Not on file Sexual Orientation Not on file Last Filed Vital Signs Vital Sign Reading Time Taken Comments Blood Pressure 106/69 11/04/2024 7:53 AM BLOOD BANK BUSINESS MANAGER Pulse 66 11/04/2024 7:53 AM BLOOD BANK BUSINESS MANAGER Temperature 36.7 ??C (98.1 ??F) 11/04/2024 7:53 AM CS T Respiratory Rate 18 11/04/2024 7:53 AM BLOOD BANK BUSINESS MANAGER Oxygen Saturation 95% 11/04/2024 7:53 AM BLOOD BANK BUSINESS MANAGER Inhaled Oxygen Concentration - - Weight 86.6 kg (190 lb 14.7 oz) 11/02/2024 2:33 PM BLOOD BANK BUSINESS MANAGER Height 157.5 cm (5' 2 ) 11/02/2024 2:33 PM BLOOD BANK BUSINESS MANAGER Body Mass Index 34.92 11/02/2024 2:33 PM BLOOD BANK BUSINESS MANAGER Plan of Treatment Health Maintenance Due Date Last Done Comments Cervical Cancer Screening Pap Smear (Age 30 to 64) Every 3 Years 1983 Annual Physical 1986 Hepatitis C 2001 Hepatitis B Vaccines (1 of 3 - 19+ 3-dose series) 2002 Cervical Cancer Screening Pap with HPV Testing (Age 30 to 64) Every 5 Years 2013 Cervical Cancer Screening with HPV 2013 Mammogram Screening 2023 COVID-19 Vaccine ( season) 2024 02/15/2021, 12/18/2020, 12/18/2020, Additional history exists DTaP, Tdap and Td Vaccines (3 - Td or Tdap) 11/22/2027 11/22/2017, 07/23/2016 Influenza Adult Completed 11/04/2024, 1001/2018, 07/29/2017, Additional history exists HPV Vaccines Aged Out No longer eligi ble based on patient's age to complete this topic Meningococcal B Vaccine Aged Out No l onger eligible based on patient's age to complete this topic Meningococcal Vaccine Aged Out No jesica bettie eligible based on patient's age to complete this topic Pneumococcal Vaccine: Pediatrics (0 to 5 Years) and At-Risk Patients (6 to 64 Years) Aged Out No longer eligible based on patient's age to complete this topic RSV Immunizations Under 20 Months Aged Out No longer eligible based on patient's age to complete this topic Medical Devices Implanted Type Area Box Office Attendant Device Identifier Shelf Expiration Date Model / Serial / Lot Stent Ureteral Contour Vl 4.8fr X 22-30cm - [id number] Implanted:Qty : 1 on 11/02/2024 by Ghanshyam Patterson MD at [facility] Stent Left: Ureter [employer]ORT[employer] [id number] 06/17/2027 [id number] / / [id number] Procedures Procedure Name Priority Date/Time Associated Diagnosis Comments BASIC METABOLIC PANEL Routine 11/04/2024 7:41 AM BLOOD BANK BUSINESS MANAGER CBC W/DIFF AUTOMATED Routine 11/04/2024 7:41 AM BLOOD BANK BUSINESS MANAGER PROCALCITONIN (PCT) Routine 11/03/2024 7 :17 AM BLOOD BANK BUSINESS MANAGER BASIC METABOLIC PANEL Routine 11/03/2024 7:17 AM BLOOD BANK BUSINESS MANAGER CBC W/DIFF AUTOMATED Routine 11/03/2024 7:17 AM BLOOD BANK BUSINESS MANAGER SURG XR RETROGRD UROGRAPHY Routine 11/02/2024 3:52 PM BLOOD BANK BUSINESS MANAGER CYSTOSCOPY STENT INSERTION/REMOVAL/CARLIN GE 11/02/2024 3:24 PM BLOOD BANK BUSINESS MANAGER LEFT URETERAL STONE URINE BACTERIA CULTURE Routine 1:24 PM BLOOD BANK BUSINESS MANAGER BASIC METABOLIC PANEL Routine 11/02/2024 4:34 AM BLOOD BANK BUSINESS MANAGER CBC W/DIFF AUTOMATED Routine 11/02/2024 4:34 AM BLOOD BANK BUSINESS MANAGER TROPONIN, QUANT STAT 11/01/2024 8:45 AM BLOOD BANK BUSINESS MANAGER TEST URINE STAT 11/01/2024 8:01 AM BLOOD BANK BUSINESS MANAGER URINALYSIS, AUTO, COMPLETE STAT 11/01/2024 8:01 AM BLOOD BANK BUSINESS MANAGER XR ABD SERIES W CHEST 1V STAT 11/01/2024 7:43 AM BLOOD BANK BUSINESS MANAGER ECG 12-LEAD STAT 11/01/2024 6:41 AM BLOOD BANK BUSINESS MANAGER TROPONIN, QUANT STAT 11/01/2024 6:32 AM BLOOD BANK BUSINESS MANAGER LIPASE STAT 11/01/2024 6:32 AM BLOOD BANK BUSINESS MANAGER COMPREHENSIVE METABOLIC PANEL STAT 11/01/2024 6:32 AM BLOOD BANK BUSINESS MANAGER CBC W/DIFF AUTOMATED STAT 11/01/2024 6:32 AM BLOOD BANK BUSINESS MANAGER CT ABD+PEL W CON STAT 10/31/2024 9:03 AM BLOOD BANK BUSINESS MANAGER URINALYSIS, AUTO, COMPLETE STAT 10/31/2024 7:44 AM BLOOD BANK BUSINESS MANAGER LIPASE STAT 10/31/2024 7:44 AM BLOOD BANK BUSINESS MANAGER COMPREHENSIVE METABOLIC PANEL STAT 10/31/2024 7:44 AM BLOOD BANK BUSINESS MANAGER CBC W/DIFF AUTOMATED STAT 10/31/2024 7:44 AM BLOOD BANK BUSINESS MANAGER from Last 3 Months Results * BASIC METABOLIC PANEL (11/04/2024 7:41 AM BLOOD BANK BUSINESS MANAGER) Only the most recent of3 resultswithin the time period is included. GLUCOSE 77 70 - 99 MG/DL 11/04/2024 8:44 AM BLOOD BANK BUSINESS MANAGER [facility] BUN 14 7 - 18 MG/DL 11/04/2024 8:44 AM BLOOD BANK BUSINESS MANAGER [facility] CREATININE S/P/B 0.69 0.55 - 1.02 MG/DL 11/04/2024 8:44 AM BLOOD BANK BUSINESS MANAGER [facility] SODIUM S/P/B 137 136 - 145 MMOL/L 11/04/2024 8:44 AM [facility] POTASSIUM S/P/B 3.7 3.5 - 5.1 MMOL/L 11/04/2024 8:44 AM [facility] CHLORIDE S/P/B 105 97 - 115 MMOL/L 11/04/2024 8:44 AM [facility] CO2 26.3 21 - 32 MMOL/L 11/04/2024 8:44 AM [facility] CALCIUM S/P/B 8.6 8.5 - 10.1 MG/DL 11/04/2024 8:44 AM [facility] ANION GAP 5.7 2 - 10 MMOL/L 11/04/2024 8:44 AM [facility] BUN CREATININE RATIO 20.2 6 - 26 11/04/2024 8:44 AM [facility] GFR ESTIMATE >90 >90 ML/MIN/1.7 3 M2 11/04/2024 8:44 AM [facility] Comment: NOTE: eGFR is not calculated for patients <18 years of age or gender unknown. This is an estimated GFR calculation using the new CKD EPI creatinine equation without race and so does not require a correction factor for race. This estimated GFR should not be used for calculating drug doses. 11/04/2024 7:41 AM [facility] Teresa Cash BIOLOGICAL CHEMIST LABORATORY Final Result [facility] [address] [place] [address], [place] [phone] * (ABNORMAL) CBC W/DIFF AUTOMATED (11/04/2024 7:41 AM [facility]) Only the most recent of5 resultswithin the time period is included. WBC 13.75(H) 4.5 - 11.0 x10'3/uL 11/04/2024 7:56 AM [facility] RBC 4.68 4.20 - 5.40 x10'6/uL 11/04/2024 7:56 AM [facility] HGB 13.5 12.0 - 16.0 G/DL 11/04/2024 7:56 AM [facility] HCT 41.2 38.0 - 48.0 % 11/04/2024 7:56 AM [facility] MCV 88.0 81.0 - 99.0 FL 11/04/2024 7:56 AM [facility] MCH 28.8 27.0 - 31.0 PG 11/04/2024 7:56 AM [facility] MCHC 32.8 32.0 - 36.0 G/DL 11/04/2024 7:56 AM [facility] RDW 13.1 11.5 - 14.5 % 11/04/2024 7:56 AM [facility] PLT 291 130 - 400 x10'3/uL 11/04/2024 7:56 AM [facility] MPV 9.2(L) 9.3 - 12.2 FL 11/04/2024 7:56 AM [facility] DIFFERENTIAL TYPE MANUAL DIFFERENTIAL 11/04/2024 8:28 AM [facility] SEG NEUTROPHILS 53 % 8:28 AM [facility] LYMPHOCYTES 42 % 11/04/2024 8:28 AM [facility] MONOCYTES 3 % 11/04/2024 8:28 AM [facility] EOSINOPHILS 1 % 11/04/2024 8:28 AM [facility] BASOPHILS 1 % 11/04/2024 8:28 AM [facility] ABS. NEUTROPHILS 7.29 1.80 - 7.70 x10'3/uL 11/04/2024 8:28 AM BLOOD BANK BUSINESS MANAGER [facility] ABS. LYMPHOCYTES 5.78(H) 1.00 - 4.80 x10'3/uL 11/04/2024 8:28 AM [facility] ABS. MONOCYTES 0.41 0.24 - 0.86 x10'3/uL 11/04/2024 8:28 AM BLOOD BANK BUSINESS MANAGER [facility] ABS. EOSINOPHILS 0.14 0.04 - 0.36 x10'3/uL 11/04/2024 8:28 AM [facility] ABS. BASOPHILS 0.14(H) 0.01 - 0.08 x10'3/uL 11/04/2024 8:28 AM [facility] RBC MORPHOLOGY RBC MORPHOLOGY APPEARS NORMAL. SLIDE REVIEWED. 11/04/2024 8:28 AM [facility] PLT EST. ADEQUATE 11/04/2024 8:28 AM BLOOD BANK BUSINESS MANAGER [facility] 11/04/2024 7:41 AM BLOOD BANK BUSINESS MANAGER Teresa Cash APRN LABORATORY Final Result Performing Organization Address [facility] Co de Phone Number [facility] [address] [place] [address], * PROCALCITONIN (PCT) (11/03/2024 7:17 AM BLOOD BANK BUSINESS MANAGER) Procalcitonin <0.05 0.00 - 0.49 NG/ML 11/03/2024 10:46 AM BLOOD BANK BUSINESS MANAGER [facility] 11/03/2024 7:17 AM BLOOD BANK BUSINESS MANAGER Teresa Cash APRN LABORATORY Final Result [facility] [address] [place] [address], * SURG XR RETROGRD UROGRAPHY (11/02/2024 3:52 PM BLOOD BANK BUSINESS MANAGER) Anatomical Region Laterality Modality Abdomen Radiographic Ami ging 11/02/2024 3:59 PM BLOOD BANK BUSINESS MANAGER Impressions 11/02/2024 4:00 PM BLOOD BANK BUSINESS MANAGER Impression: No radiologic interpretation will be issued. ??The report and documentation of this exam will reside in the patient's permanent medical record and in the attending physician's procedure note. Ordered By: GHANSHYAM PATTERSON Interpreted By: Jeffery Feldman MD, 11/02/2024 3:59 PM Narrative 11/02/2024 4:00 PM BLOOD BANK BUSINESS MANAGER [place] [address] FLUOROSCOPY CONTROL ONLY Procedure Note Jeffery Feldman MD - 11/02/2024 [place] [address] FLUOROSCOPY CONTROL ONLY Impression: No radiologic interpretation will be issued. The report and documentationof this exam will reside in the patient's permanent medical record and inthe attending physician's procedure note. Ordered By: GHANSHYAM PATTERSON Interpreted By: Jeffery Feldman MD, 11/02/2024 3:59 PM Ghanshyam Patterson MD IMAGES ONLY Final Result * URINE BACTERIA CULTURE (11/02/2024 1:24 PM BLOOD BANK BUSINESS MANAGER) SPEC DESCRIPTION URINE CLEAN CATCH 11/02/2024 7:30 AM BLOOD BANK BUSINESS MANAGER [facility] SPECIAL REQUESTS NO SPECIAL REQUEST 11/02/2024 7:30 AM BLOOD BANK BUSINESS MANAGER [facility] CULTURE RESULT NO GROWTH 2 DAYS 11/04/2024 7:02 AM BLOOD BANK BUSINESS MANAGER [facility] URINE SPECIMEN OBTAINED BY CLEAN CATCH PROCEDURE / Unknown 11/02/2024 1:24 PM BLOOD BANK BUSINESS MANAGER 11/02/2024 1:32 PM BLOOD BANK BUSINESS MANAGER Teresa Cash BIOLOGICAL CHEMIST MICROBIOLOGY - GENERAL ORDERAB LES Final Result Performing Organization Address City/[facility]/ZIP Co de Phone Number [facility] [address] [place] [address], [place] [phone] * TROPONIN, QUANT (11/01/2024 8:45 AM BLOOD BANK BUSINESS MANAGER) Only the most recent of2 resultswithin the time period is included. TROPONIN I HIGH SENSITIVITY <4 0 - 50 ng/L 11/01/2024 9:21 AM BLOOD BANK BUSINESS MANAGER [facility] Comment: HIGH DOSES OF BIOTIN, TROPONIN-SPECIFIC AUTOANTIBODIES, AND ANTIBODY THERAPY CONTAINING HAMA MAY INTERFERE WITH THIS TEST RESULT. CORRELATION TO CLINICAL HISTORY AND PRESENTATION RECOMMENDED. 11/01/2024 8:45 AM BLOOD BANK BUSINESS MANAGER Susana Barnard DO LABORATORY Final Result Performing Organization Address City/[facility]/ZIP Co de Phone Number [facility] [address] [place] [address], [place] [phone] * TEST URINE (11/01/2024 8:01 AM BLOOD BANK BUSINESS MANAGER) URINE HCG TEST NEGATIVE NEGATIVE 11/01/2024 8:11 AM BLOOD BANK BUSINESS MANAGER [facility] Comment: VERY DILUTE URINE SPECIMENS MAY NOT CONTAIN SMOKING TOBACCO CUTTER OPERATOR LEVELS OF HCG. IF IS STILL SUSPECTED, A SERUM HCG TEST IS RECOMMENDED. URINE SPECIMEN FROM URETHRA / Unknown 11/01/2024 8:01 AM BLOOD BANK BUSINESS MANAGER Susana Bettina ROSE URINE ORDERABLES Final Result [facility] [address] [place] [address], [place] [phone] * (ABNORMAL) URINALYSIS, AUTO, COMPLETE (11/01/2024 8:01 AM BLOOD BANK BUSINESS MANAGER) Only the most recent of2 resultswithin the time period is included. COLOR (U) YELLOW 11/01/2024 8:20 AM [facility] TRANSPARENCY CLEAR 11/01/2024 8:20 AM [facility] SPECIFIC GRAVITY (U) 1.025 1.000 - 1.030 11/01/2024 8:20 AM [facility] U PH 6.0 5.0 - 9.0 11/01/2024 8:20 AM [facility] LEUKOCYTES (U) TRACE(A) NEGATIVE 11/01/2024 8:20 AM [facility] NITRITES NEGATIVE NEGATIVE 11/01/2024 8:20 AM [facility] PROTEIN RANDOM (U) NEGATIVE NEGATIVE 11/01/2024 8:20 AM [facility] GLUCOSE (U) TRACE(A) NEGATIVE 11/01/2024 8:20 AM [facility] KETONES MG/DL (U) NEGATIVE NEGATIVE 11/01/2024 8:20 AM [facility] BILIRUBIN (U) NEGATIVE NEGATIVE 11/01/2024 8:20 AM [facility] BLOOD (U) TRACE(A) NEGATIVE 11/01/2024 8:20 AM [facility] WBC/HPF 0-5 0 - 5 /HPF 11/01/2024 8:20 AM [facility] RBC/HPF 0-5 0 - 5 /HPF 11/01/2024 8:20 AM BLOOD BANK BUSINESS MANAGER [facility] EPI/HPF FEW /HPF 11/01/2024 8:20 AM BLOOD BANK BUSINESS MANAGER [facility] URINE SPECIMEN OBTAINED BY CLEAN CATCH PROCEDURE / Unknown 11/01/2024 8:01 AM BLOOD BANK BUSINESS MANAGER Susana Barnard DO URINE ORDERABLES Final Result [facility] [address] [place] [address], [place] [phone] * XR ABD SERIES W CHEST 1V (11/01/2024 7:43 AM BLOOD BANK BUSINESS MANAGER) Anatomical Region Laterality Modality Abdomen, Chest Radiographic Ami ging 11/01/2024 7:43 AM BLOOD BANK BUSINESS MANAGER Impressions 11/01/2024 7:46 AM BLOOD BANK BUSINESS MANAGER IMPRESSION: 1. ??No radiographic evidence is seen to suggest acute cardiopulmonary abnormality. 2. ??Approximately 6 mm calcification projecting between the L3 inferior endplate and left renal shadow is compatible with the patient's known left proximal ureteral calculus. 3. ??Nonobstructive bowel gas pattern with moderate to large volume of stool throughout the colon that could reflect constipation in the appropriate clinical context. Referred By: ?? Interpreted By: Freedom Zuñiga DO, 11/01/2024 7:43 AM Narrative 11/01/2024 7:46 AM BLOOD BANK BUSINESS MANAGER [facility] [address] [place] [address] Examination: XR ABD SERIES W CHEST 1V Exam time: 11/01/2024 7:43 AM Clinical history: Chest pain and known kidney stone. Comparison: CT abdomen and pelvis 10/31/2024 and abdomen radiographs 03/30/2015. Technique: PA radiograph of the chest and supine and upright AP radiographs of the abdomen and pelvis. Findings: The cardiomediastinal silhouette is normal in size. ??Pulmonary vasculature is appropriately distributed. ??The lungs are clear of active opacities. ??There is no sizable pleural effusion or pneumothorax. There is a nonobstructive bowel gas pattern with a moderate to large volume of stool throughout the colon that is nonspecific but could reflect constipation in the appropriate clinical context. ??Surgical clips in the right upper quadrant likely reflect prior cholecystectomy. ??No evidence is seen to suggest organomegaly. ??An approximately 6 mm calcification projecting between the L3 inferior endplate and left renal shadow is compatible with the patient's known left proximal ureteral calculus. ??There are calcified pelvic phleboliths. ??There is no free intraperitoneal air. Procedure Note Freedom Zuñiga DO - 11/01/2024 [facility] [address] [place] [address] Examination: XR ABD SERIES W CHEST 1V Exam time: 11/01/2024 7:43 AM Clinical history: Chest pain and known kidney stone. Comparison: CT abdomen and pelvis 10/31/2024 and abdomen radiographs03/30/2015. Technique: PA radiograph of the chest and supine and upright APradiographs of the abdomen and pelvis. Findings: The cardiomediastinal silhouette is normal in size. Pulmonary vasculatureis appropriately distributed. The lungs are clear of active opacities.There is no sizable pleural effusion or pneumothorax. There is a nonobstructive bowel gas pattern with a moderate to largevolume of stool throughout the colon that is nonspecific but could reflectconstipation in the appropriate clinical context. Surgical clips in theright upper quadrant likely reflect prior cholecystectomy. No evidence isseen to suggest organomegaly. An approximately 6 mm calcificationprojecting between the L3 inferior endplate and left renal shadow iscompatible with the patient's known left proximal ureteral calculus.There are calcified pelvic phleboliths. There is no free intraperitonealair. IMPRESSION: 1. No radiographic evidence is seen to suggest acute cardiopulmonaryabnormality. 2. Approximately 6 mm calcification projecting between the L3 inferiorendplate and left renal shadow is compatible with the patient's known leftproximal ureteral calculus. 3. Nonobstructive bowel gas pattern with moderate to large volume ofstool throughout the colon that could reflect constipation in theappropriate clinical context. Referred By: Interpreted By: Freedom Zuñiga DO, 11/01/2024 7:43 AM us Susana Barnard DO GENERAL IMAGING Final Result * ECG 12 lead (11/01/2024 6:41 AM BLOOD BANK BUSINESS MANAGER) 11/01/2024 6:41 AM BLOOD BANK BUSINESS MANAGER Narrative [facility] RAD - 11/01/2024 10:02 AM BLOOD BANK BUSINESS MANAGER ?[facility] ? Test Date: ?2024-11-01 Pat Name: ? PILI LEE ?Department: ?? 85 ? Room: ? EXAM 202 Gender: ? Female ? Billing Department Supervisor: ?? : ?1985 ? Requested By: SUSANA BARNARD Order Number: [id number] ? Reading : ?? Raheem Mccormick ? Measurements Intervals ?[place] ? Rate: ? 69 ? P: ?23 OK: ? 160 ?QRS: ?31 QRSD: ? 85 ? T: ?17 QT: ? 389 ? QTc: ?418 ? Interpretive Statements SINUS RHYTHM Compared to ECG 01/09/2017 18:07:36 No significant changes D BANK BUSINESS MANAGER Procedure Note Raheem Mccormick MD - 11/01/2024 [facility] [place] Test Date: 2024-11-01 Pat Name: PILI HOWARD Department: 85 Room: EXAM 202 Gender: Female Billing Department Supervisor: : 1985 Requested By: SUSANA BARNARD Order Number: [id number] Reading MD: Raheem Mccormick Measurements Intervals [place] Rate: 69 P: 23 OK: 160 QRS: 31 QRSD: 85 T: 17 QT: 389 QTc: 418 Interpretive Statements SINUS RHYTHM Compared to ECG 01/09/2017 18:07:36 No significant changes D BANK BUSINESS MANAGER us Susana Barnard DO ECG ORDERABLES Final Result [facility] RAD * (ABNORMAL) COMPREHENSIVE METABOLIC PANEL (11/01/2024 6:32 AM [facility]) Only the most recent of2 resultswithin the time period is included. GLUCOSE 98 70 - 99 MG/DL 11/01/2024 7:16 AM [facility] BUN 11 7 - 18 MG/DL 11/01/2024 7:16 AM [facility] CREATININE S/P/B 0.92 0.55 - 1.02 MG/DL 11/01/2024 7:16 AM [facility] SODIUM S/P/B 139 136 - 145 MMOL/L 11/01/2024 7:16 AM [facility] POTASSIUM S/P/B 3.7 3.5 - 5.1 MMOL/L 11/01/2024 7:16 AM [facility] CHLORIDE S/P/B 104 100 - 108 MMOL/L 11/01/2024 7:16 AM [facility] CO2 27.0 21 - 32 MMOL/L 11/01/2024 7:16 AM [facility] CALCIUM S/P/B 8.9 8.5 - 10.1 MG/DL 11/01/2024 7:16 AM [facility] BILIRUBIN TOTAL S/P/B 0.3 0.2 - 1.2 MG/DL 11/01/2024 7:16 AM [facility] TOTAL PROTEIN S/P/B 7.4 6.4 - 8.2 G/DL 11/01/2024 7:16 AM [facility] ALBUMIN S/P/B 3.5 3.4 - 5.0 G/DL 11/01/2024 7:16 AM [facility] AST 73(H) 15 - 37 U/L 11/01/2024 7:16 AM [facility] ALT 130(H) 14 - 55 U/L 11/01/2024 7:16 AM [facility] ALKALINE PHOSPHATASE S/P/B 127 50 - 136 U/L 11/01/2024 7:16 AM [facility] ANION GAP 8.0 5 - 15 MMOL/L 11/01/2024 7:16 AM [facility] BUN CREATININE RATIO 12.0 6 - 26 11/01/2024 7:16 AM [facility] A/G RATIO 0.9(L) 1.0 - 2.0 RATIO 11/01/2024 7:16 AM [facility] GFR ESTIMATE 80(L) >90 ML/MIN/1.7 3 M2 11/01/2024 7:16 AM [facility] Comment: NOTE: eGFR is not calculated for patients <18 years of age. This is an estimated GFR calculation using the new CKD EPI creatinine equation without race and so does not require a correction factor for race. This estimated GFR should not be used for calculating drug doses. 11/01/2024 6:32 AM BLOOD BANK BUSINESS MANAGER us Susana Barnard DO LABORATORY Final Result Performing Organization Address City/[facility]/ZIP Co de Phone Number [facility] [address] [place] [address], * LIPASE (11/01/2024 6:32 AM BLOOD BANK BUSINESS MANAGER) Only the most recent of2 resultswithin the time period is included. LIPASE 23 16 - 77 UNITS/L 11/01/2024 7:16 AM [facility] 11/01/2024 6:32 AM BLOOD BANK BUSINESS MANAGER us Susana Barnard DO LABORATORY Final Result [facility] [address] [place] [address], * CT ABD+PEL W IV CON ONLY (10/31/2024 9:03 AM BLOOD BANK BUSINESS MANAGER) Anatomical Region Laterality Modality Abdomen Computed Tomogra phy 10/31/2024 9:14 AM BLOOD BANK BUSINESS MANAGER Impressions 10/31/2024 9:26 AM BLOOD BANK BUSINESS MANAGER IMPRESSION: 1. Left proximal ureteral 5 to 6 mm stone just distal to UPJ with mild proximal associated obstructive uropathy. 2. Multiple bilateral renal cysts. Some of these have enlarged interval. Limited evaluation on this single phase contrast study. 3. Additional incidental, nonurgent, stable and chronic findings as detailed above. Ordered By: NIKOLAS DAMON Interpreted By: Rosy Santiago MD, 10/31/2024 9:14 AM Narrative 10/31/2024 9:26 AM BLOOD BANK BUSINESS MANAGER [facility] [address] [place] [address] EXAM: CT ??ABDOMEN - PELVIS ??WITH CONTRAST Exam Date: 10/31/2024 7:39 AM INDICATION:Female ??39 years ??lower abdominal pain TECHNIQUE: Contiguous axial slices were obtained of the abdomen and pelvis post infusion of ??80mL of IV Isovue 370 with coronal and sagittal reformats as per standard department protocol. A dose lowering technique was utilized for this procedure which may include but is not limited to dose reduction techniques, automated exposure control, and/or the use of iterative reconstruction in accordance with ALARA principle. COMPARISON: Selected images and report CT abdomen pelvis 03/29/2015 FINDINGS: Mild elevation right hemidiaphragm partial imaged minimal dependent linear and hazy opacities and nodular pleural thickening. Trace fluid in nondilated esophagus may represent stasis and/or signs of active reflux. Limited evaluation of the partially imaged thorax on this nondedicated study. HOLLOW VISCERA-MESENTERY: Nearly completely decompressed. Nonvisualized appendix compatible with appendectomy history. No bowel obstruction. No focal small bowel or colonic the segmental wall thickening or pathologic enhancement. No pneumoperitoneum or abdominal ascites. VASCULATURE:Unremarkable appearance of visualized aorta and IVC. SOLID VISCERA-RETROPERITONEUM: Mild hepatomegaly with minimal steatosis suggested. More focal minimal areas of fatty deposition abutting falciform ligament. Cholecystectomy changes. The pancreas, spleen, and adrenal glands demonstrate no significant abnormality. Limited evaluation for urolithiasis on IV contrast enhanced study. However potential partially obstructing left proximal ureteral calculus noted just distal to the UPJ best seen coronal series 4 image 54 measuring maximally longitudinally 5 to 6 mm. Associated of moderate left pelvocaliectasis/mild hydronephrosis. Additional punctate nonobstructing left intrarenal calculus. Be present versus artifact, series 2 image 54. Multiple bilateral renal cortical hypodensities. The dominant 1 with attenuation characteristics of cysts. Some are subcentimeter and too small to characterize. Some of these have enlarged interval. This includes the dominant largest one in the right upper pole, series 2 image 56 measuring in cross-section approximately 1.5 x 1.4 cm and dominant one in the left lower pole, series 2 image 66 measuring 0.7 x 1 cm. Potential partially obscured left parapelvic cyst. No discrete perinephric fluid collection. No right hydronephrosis. No hydroureter on either side. The bladder is only partially distended with minimal nonspecific mural prominence but no bladder calculus appreciated. Slightly heterogeneous uterus. No significant adnexal abnormality demonstrated. No significant pelvic free fluid. SOFT TISSUES-OSSEOUS: Tiny fat-containing umbilical hernia. Minimal osseous degenerative changes. Procedure Note Rosy Santiago MD - 10/31/2024 [facility] [address] [place] [address] EXAM: CT ABDOMEN - PELVIS WITH CONTRAST Exam Date: 10/31/2024 7:39 AM INDICATION:Female 39 years lower abdominal pain TECHNIQUE: Contiguous axial slices were obtained of the abdomen and pelvispost infusion of 80mL of IV Isovue 370 with coronal and sagittalreformats as per standard department protocol. A dose lowering techniquewas utilized for this procedure which may include but is not limited todose reduction techniques, automated exposure control, and/or the use ofiterative reconstruction in accordance with ALARA principle. COMPARISON: Selected images and report CT abdomen pelvis 03/29/2015 FINDINGS: Mild elevation right hemidiaphragm partial imaged minimal dependent linearand hazy opacities and nodular pleural thickening. Trace fluid in nondilated esophagus may represent stasis and/or signs ofactive reflux. Limited evaluation of the partially imaged thorax on this nondedicatedstudy. HOLLOW VISCERA-MESENTERY: Nearly completely decompressed. Nonvisualizedappendix compatible with appendectomy history. No bowel obstruction. Nofocal small bowel or colonic the segmental wall thickening or pathologicenhancement. No pneumoperitoneum or abdominal ascites. VASCULATURE:Unremarkable appearance of visualized aorta and IVC. SOLID VISCERA-RETROPERITONEUM: Mild hepatomegaly with minimal steatosissuggested. More focal minimal areas of fatty deposition abutting falciformligament. Cholecystectomy changes. The pancreas, spleen, and adrenal glands demonstrate no significantabnormality. Limited evaluation for urolithiasis on IV contrast enhanced study. Howeverpotential partially obstructing left proximal ureteral calculus noted justdistal to the UPJ best seen coronal series 4 image 54 measuring maximallylongitudinally 5 to 6 mm. Associated of moderate leftpelvocaliectasis/mild hydronephrosis. Additional punctate nonobstructingleft intrarenal calculus. Be present versus artifact, series 2 image 54.Multiple bilateral renal cortical hypodensities. The dominant 1 withattenuation characteristics of cysts. Some are subcentimeter and too smallto characterize. Some of these have enlarged interval. This includes thedominant largest one in the right upper pole, series 2 image 56 measuringin cross-section approximately 1.5 x 1.4 cm and dominant one in the leftlower pole, series 2 image 66 measuring 0.7 x 1 cm. Potential partiallyobscured left parapelvic cyst. No discrete perinephric fluid collection.No right hydronephrosis. No hydroureter on either side. The bladder isonly partially distended with minimal nonspecific mural prominence but nobladder calculus appreciated. Slightly heterogeneous uterus. No significant adnexal abnormalitydemonstrated. No significant pelvic free fluid. SOFT TISSUES-OSSEOUS: Tiny fat-containing umbilical hernia. Minimalosseous degenerative changes. IMPRESSION: 1. Left proximal ureteral 5 to 6 mm stone just distal to UPJ with mildproximal associated obstructive uropathy. 2. Multiple bilateral renal cysts. Some of these have enlarged interval. Limited evaluation on this single phase contrast study. 3. Additional incidental, nonurgent, stable and chronic findings asdetailed above. Ordered By: NIKOLAS DAMON Interpreted By: Rosy Santiago MD, 10/31/2024 9:14 AM Nikolas Damon MD CT Final R esult from Last 3 Months Insurance [facility] Advance Directives * Full Code (Latest Code Status on File) Date Activated Date Inactivated Comments 11/01/2024 1:20 PM 11/04/2024 1:29 PM Care Teams Dealer Sales Manager Relationship Specialty Start Date End Date Magdiel Patrick MD [address] [place] [address] PCP - General EMERGENCY MEDICINE 10/31/24 Ambrosio Villegas DO [address] [place] [address] FAMILY PRACTICE 11/01/24
--- OUTSIDE RECORDS SUMMARY | 2024-11-12 05:29 | XMS_ITS | Encounter Summary ---
Author Organization [facility] Address [address] [place] [address] Phone Care Team Providers Care Hogshead Opener Name Role Phone Clementine Kelsey MD Primary Care Provider + Encounter Details Date Type Department Care Team (Latest Contact Info) Description 08/21/2017 Orders Only [facility] CONVERSION Scanning, Provider Social History Tobacco Use Types Packs/Day Years Used Date Smoking Tobacco: Former Smokeless Tobacco: Never Comments Yes Sex and Gender Information Value Date Recorded Sex Assigned at Not on file Legal Sex Female 9:17 PM TRAFFIC 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 Gender Identity Not on file Sexual Orientation Not on file documented as of this encounter Plan of Treatment Not on file documented as of this encounter Procedures Procedure Name Priority Date/Time Associated Diagnosis Comments OBSTETRIC/GYNECOLOGY ULTRASONOGRAPHY REPORT 08/21/2017 2:28 PM CDT documented in this encounter Results * OBSTETRIC/GYNECOLOGY ULTRASONOGRAPHY REPORT (08/21/2017 2:28 PM CDT) Anatomical Region Laterality Modality Ultrasound us Provider Scanning IMG OB US PROCEDURES Final Res ult documented in this encounter Visit Diagnoses Not on filedocumented in this encounter Care Teams Hogshead Opener Relationship Specialty Start Date End Date lCementine Kelsey MD PCP - General 06/11/17 documented as of this encounter
== END 2024-11-09 13:00 | disposition home or self-care (01) | DRG 694 ==
LOC: ANHED 09:38 → ANH3MEDSUR 15:18
PROVIDERS: Emergency Medicine; Nurse Practitioner Family; Admitting Provider Hospitalist; Emergency Provider Physician Assistant; PCP Clinical Nurse Specialist; Visit Provider Family Medicine
DX: N20.1 Calculus of ureter (principal); N39.0 Urinary tract infection, site not specified; F41.9 Anxiety disorder, unspecified; F32.A Depression, unspecified; G89.29 Other chronic pain; I10 Essential (primary) hypertension; Z96.0 Presence of urogenital implants; Z90.49 Acquired absence of other specified parts of digestive tract; Z87.891 Personal history of nicotine dependence
CPT/HCPCS: 36415; 74018; 74177; 80053; 81001; 81025; 83605; 85025; 87040; 87086; 96365; 96375; 96376; 99285; A9270; G0378; J0696; J1171; J1885; J2405; J7030; Q9967

== ENCOUNTER 2024-11-13 01:01 | Day surgery (SDC) | payer BC, SELFPAY ==
--- NOTE | 2024-11-09 16:29 | PC.NURSE ---
Report to the Outpatient Waiting Room, entrance under the green pavilion located off [facility], at time _0815 on date ___[id number]____. Planned Procedure Time: __1015 .? Time changes happen often and if your time is changed the preop area will call you the afternoon before. - You and your visitor will be asked to self-screen and do not enter if you have any COVID symptoms. Please call surgeon if you need to reschedule. - A mask is optional within the hospital at this time. Patients may have clear liquids (water, carbonated beverages, clear teas, apple juice) until 3 hours prior to surgery with a maximum of 20 ounces. - No food from midnight until time of surgery and no smoking. This includes no chewing gum, candy or mints. Take only the following medications with a SIP of water on the morning of surgery: n/a DO NOT STOP ANY OF YOUR OTHER PRESCRIPTION MEDICATIONS PRIOR TO SURGERY EXCEPT THE FOLLOWING n/a Please no make-up, nail belarusian, hairspray, perfume, deodorant, or body powder the day of surgery.? No jewelry (including any body piercings) or valuables the day of surgery, leave them at home.? Please take a shower or bath the night before, or the morning of, surgery with an antibacterial soap.? Wear comfortable, loose fitting clothing.? - Jewelry must be removed prior to entering the operating room.? Rings and piercings that are not removed may be cut off. - The hospital will not accept responsibility for valuables.? - Please leave all valuables, including medications, at home the day of surgery. If you are going home after surgery, a licensed pile driver operator barge mounted must drive you home.? - NO public transportation without another adult if you receive anesthesia. - We recommend that an adult stay with you for 24 hours following discharge. - We also recommend that you do not drive, make important decision, drink alcoholic beverages, or take any drugs that were not prescribed by your health care provider for at least 24 hours after your discharge time. Follow any additional instructions given to you from your surgeon. Telephone instructions given to ____Pili (patient) and asked if any additional questions and then verbalized understanding. Patient advised to call surgeon office or pre surgery nurse liaison [phone] if any additional questions.
[2024-11-09 16:34] VITALS: BMI 32.0
--- NOTE | 2024-11-10 08:54 | P.HP_ITS ---
History of Present Illness History of Present Illness Consent: Risks, benefits, and alternatives have been discussed and questions answered. Patient agrees to proceed with procedure. Chief complaint: Left ureteral stone Narrative: Pili Argueta is a 39 year old female with a history of urolithiasis who presented to the emergency department at [facility] a couple weekends ago with a painful 4 mm left proximal ureteral stone. At [facility] ureteral stent was placed and she now presents for definitive intervention. We discussed both ureteroscopy with stone extraction and left ESWL. She is opting for the latter. She is aware the risk including, but limited to, adverse cardiopulmonary events, hematuria, need for additional procedures and perinephric hematoma Review of Systems Review of Systems: All systems reviewed & are unremarkable except as noted in HPI and below PMFSH Past Medical History Medical History Anxiety and depression Hypertension Chronic pain hips, back, arthritis Heart & renal disease, hypertensive benign with chronic kidney disease Pre-diabetes Surgical History Surgical History Status post laser lithotripsy of ureteral calculus H/O gynecological procedure Laprascopic endometriosis X3 D&C History of cholecystectomy History of tubal ligation Hx of appendectomy Family History Family History Father Diabetes mellitus Hypertension Heart problem Grandparent AA (alcohol abuse) Heart problem Grandparent Colon abnormality Daughter Asthma, Onset Age: 20 Daughter Asthma Social History Social History Years smoked: 4 Smoking status: Former smoker Tobacco type: cigarettes Smoking end date: 04/20/22 Alcohol intake: current Drinks per week: 1 Alcohol use details: wine Substance use: never Substance use type: does not use Do You Feel Safe in your Home?: Yes Lack of Transportation: No Lack of Food: Never True Current Housing: I Have Housing Concerned About Future Housing: No Difficulty Paying Gas/Electric Bills: No Difficulty Paying for Meds: No Currently Unemployed: No Education: Master's Degree or Higher Difficulty w/ Childcare or Family Care: No Living arrangements: with family Occupation/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 Gender identity (if verbalized by the patient): Female Sexual Orientation (if Verbalized by the Patient): Straight or Heterosexual Spiritual care concerns: No Meds Home Medications and Allergies Home Medications ?Medication ?Instructions ?Recorded ?Confirmed ?Type sertraline 100 mg tablet 200 mg (2 x 100 mg) PO QHS #180 10/22/24 11/09/24 Rx tabs Allergies Allergy/AdvReac Type Severity Reaction Status Date / Time guaifenesin Allergy Unknown Unknown Verified 11/09/24 16:36 brompheniramine AdvReac Unknown TACHYCARDIA Verified 11/09/24 16:36 phenylpropanolamine AdvReac Unknown TACHYCARDIA Verified 11/09/24 16:36 SPINAL TAP MEDICATION Allergy Unknown Itching Uncoded 11/09/24 16:36 Exam Const: General: no acute distress Resp: Effort & Inspection: normal respiratory effort GI: Inspection: non-distended GI Palp: No abdominal tenderness and No Guarding due to palpation present (GI) Auscultation: normal bowel sounds Assessment and Plan Assessment and plan (1) Calculus of left ureter: Code(s): N20.1 - Calculus of ureter Status: Acute Plan * Cystoscopy, left ureteral stent removal, left ESWL
[2024-11-13] VITALS (12 sets, daily range): BP systolic 118–147; BP diastolic 72–95; PULSE 78–105; RESP 14–18; TEMP 36.1–36.8; O2SAT 91–100
--- NOTE | ~2024-11-13 | XR_ITS ---
Supine and upright views of the abdomen Clinical history: Prelithotripsy COMPARISON: 11/07/2024 Findings: Bowel gas pattern is nonspecific. No evidence for obstruction or free air. Left ureteral st ent unchanged. Proximal left ureteral stone is unchanged. Osseous structures are intact. Impression: Stable left ureteral stent and small proximal left ureteral stone. Reviewed, dictated and finalized at [facility]. ENFORCEMENT ADMINISTRATION AGENT Impression: Stable left ureteral stent and small proximal left ureteral stone.
--- NOTE | 2024-11-13 06:30 | WPDHPUPDATE1 ---
History and Physical Update Update Date/Time: 11/13/24 06:30 History and Physical has been reviewed, including an updated exam of the patient. There are NO changes in the patient's condition. Risks, benefits, and alternatives have been discussed and questions answered. Patient agrees to proceed with procedure.
--- NOTE | 2024-11-13 07:25 | P.PNAN_ITS ---
Anes - Initial Pre Proc Eval Procedure: Operation Date: 11/13/24 09:30 Proposed Procedures p Left Extracorporeal Shock Wave Lithotripsy, - Ambrosio Vizcaino MD s Cystoscopy with Stent Removal - Ambrosio Vizcaino MD Date/Time: 11/13/24 07:25 Surgeon: Ambrosio Vizcaino MD Pre Op Diagnosis: Left ureteral stone Patient Data Age: 39 Gender: F Height: 1.57 m Weight: 79.4 kg Allergies Allergy/AdvReac Type Severity Reaction Status Date / Time guaifenesin Allergy Unknown Unknown Verified 11/09/24 16:36 brompheniramine AdvReac Unknown TACHYCARDIA Verified 11/09/24 16:36 phenylpropanolamine AdvReac Unknown TACHYCARDIA Verified 11/09/24 16:36 SPINAL TAP MEDICATION Allergy Unknown Itching Uncoded 11/09/24 16:36 Home Medications ?Medication ?Instructions ?Recorded ?Confirmed ?Type sertraline 100 mg tablet 200 mg (2 x 100 mg) PO QHS #180 10/22/24 11/09/24 Rx tabs Patient hx anesthesia problems: none Family hx anesthesia problems: none Results Review: All pre-operative results and documents have been reviewed as part of the pre- operative evaluation. [facility] Past Medical History Medical History (Updated 11/13/24 @ 08:47 by Migel James DO) Endometriosis Anxiety and depression Chronic pain hips, back, arthritis Heart & renal disease, hypertensive benign with chronic kidney disease Pre-diabetes Surgical History Surgical History Status post laser lithotripsy of ureteral calculus H/O gynecological procedure Laprascopic endometriosis X3 D&C History of cholecystectomy History of tubal ligation Hx of appendectomy Family History Family History Father Diabetes mellitus Hypertension Heart problem Grandparent AA (alcohol abuse) Heart problem Grandparent Colon abnormality Daughter Asthma, Onset Age: 20 Daughter Asthma Social History Social History Years smoked: 4 Smoking status: Former smoker Tobacco type: cigarettes Smoking end date: 04/20/22 Alcohol intake: current Drinks per week: 3 Alcohol use details: 3-4 servings per week Substance use: never Substance use type: does not use Do You Feel Safe in your Home?: Yes Lack of Transportation: No Lack of Food: Never True Current Housing: I Have Housing Concerned About Future Housing: No Difficulty Paying Gas/Electric Bills: No Difficulty Paying for Meds: No Currently Unemployed: No Education: Master's Degree or Higher Difficulty w/ Childcare or Family Care: No Living arrangements: with family 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/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 Gender identity (if verbalized by the patient): Female Sexual Orientation (if Verbalized by the Patient): Straight or Heterosexual Spiritual care concerns: No Anes - Eval Final PreProcedure Day of Procedure 11/13/24 07:25 Patient weight: obese Heart: regular rate and rhythm Lungs: clear to auscultation Airway: Mallampati scale class II Neurological: alert and oriented Last oral intake: >/= 8 hours ASA classification: II Emergent: no Anesthetic plan: proceed Anesthesia type and monitoring: general LMA and standard monitoring Results Review: All pre-operative results and documents have been reviewed as part of the pre- operative evaluation. Informed Consent: The patient's anesthetic plan and its attendant risks and benefits were discussed with the patient/family/POA. Questions were solicited and answers provided to the satisfaction of the patient/family/POA.
[2024-11-13] MEDS: LACTATED RINGERS 1,000 ML 30 ML IV CONT ×2 (08:30→12:36)
[2024-11-13 08:51] LABS: INR 0.9; Partial Thromboplastin Time 23.2 Seconds (22.3-36.8); Prothrombin Time 12.3 Seconds (11.1-14.7)
[2024-11-13 09:02] LABS: BEDSIDEPREGUCG Negative (Negative)
[2024-11-13] MEDS: ceFAZolin 2 GM/D5W 50 ML 2 GM/50 ML BAG IVPB (09:35)
--- NOTE | 2024-11-13 09:58 | P.OP_ITS ---
Procedure Note - Detailed Date of Procedure 11/13/24 Pre-op Diagnosis Left ureteral stone Post-op Diagnosis Same Procedure Performed cystoscopy, left ureteral stent removal, left ESWL Surgeon Ambrosio Vizcaino MD Anesthesia MAC Description of Procedure The patient was brought to the operative suite where she was placed in the frog- legged position on the Dornier lithotripter table. Flexible cystoscopy was undertaken with a 16F flexible cystoscopy. Her urethra and bladder neck were endoscopically normal. The bladder mucosa was normal and there was a single, orthotopic ureteral orifice bilaterally. The tip of the indwelling stent was grasped and the stent was removed with ease. The patient was then repositioned in the supine position and the focal point of the lithotriptor was placed at a 4mm left mid-ureteral calculus. A total of 3000 shocks were delivered at a power setting of 5. There appeared to be good fragmentation of the stone. The patient tolerated the procedure well and was taken to the recovery room in good condition.
[2024-11-13] MEDS: fentaNYL CITRATE INJ (*CRX) 100 MCG/2 ML VIAL 25 MCG IV PUSH ×4 (11:02→11:12)
[2024-11-13] MEDS: oxyCODONE HCL (*CRX) 5 MG TAB IR PO (11:49)
[2024-11-13] MEDS: ONDANSETRON INJ 4 MG/2 ML VIAL IV PUSH (12:29)
[2024-11-13] MEDS: KETOROLAC 30 MG/ML VIAL (*BKC) IV PUSH (12:35)
== END 2024-11-13 14:17 | disposition home or self-care (01) ==
PROVIDERS: PCP Clinical Nurse Specialist; Visit Provider Urology
PROC: (CPT 50590; principal; 2024-11-13 09:30)
PROC: (CPT 52310; 2024-11-13 09:30)
DX: N20.1 Calculus of ureter (principal); E13.22 Other specified diabetes mellitus with diabetic chronic kidney disease; I12.9 Hypertensive chronic kidney disease with stage 1 through stage 4 chronic kidney disease, or unspecified chronic kidney disease; N18.9 Chronic kidney disease, unspecified; I51.9 Heart disease, unspecified; F41.8 Other specified anxiety disorders; G89.29 Other chronic pain; M25.552 Pain in left hip; M25.551 Pain in right hip; M54.9 Dorsalgia, unspecified; E66.9 Obesity, unspecified; Z68.31 Body mass index [BMI] 31.0-31.9, adult; Z98.890 Other specified postprocedural states; Z90.49 Acquired absence of other specified parts of digestive tract; Z98.51 Tubal ligation status; Z87.891 Personal history of nicotine dependence; Z82.49 Family history of ischemic heart disease and other diseases of the circulatory system
CPT/HCPCS: 52310; 50590; 36415; 74018; 85610; 85730; A9270; J0690; J1885; J2003; J2250; J2405; J2704; J3010; J7030; J7120

== ENCOUNTER 2025-10-18 15:21 | Emergency (ER) | payer BC, SELFPAY ==
--- NOTE | 2025-10-18 15:23 | ED_ITS ---
HPI - Abdominal Pain General Chief Complaint: Nausea/Vomiting/Diarrhea Stated Complaint: Stomach Pain Time Seen by Provider: 10/18/25 15:22 Source: patient Mode of arrival: ambulatory Limitations: no limitations History of Present Illness HPI narrative: Pili is a 40-year-old female patient presenting to the clinic today with complaints of nausea, diarrhea, and sharp stabbing mid abdominal pain x2 day. She reports she feels weak and fatigued. States that every time she eats or drinks she has diarrhea. Pain is a constant sharp pain in the mid abdomen that waxes and wanes. Denies any urinary symptoms. No blood in her stool. Denies any chest pain or shortness of breath. Related Data Allergies Allergy/AdvReac Type Severity Reaction Status Date / Time guaifenesin Allergy Unknown Unknown Verified 10/18/25 15:31 brompheniramine AdvReac Unknown TACHYCARDIA Verified 10/18/25 15:31 phenylpropanolamine AdvReac Unknown TACHYCARDIA Verified 10/18/25 15:31 Review of Systems Review of Systems: Pertinent positives per HPI. Patient denies any fever, chills, rash, headache, visual changes, dizziness, cough, runny nose, sore throat, shortness of breath, chest pain, palpitations, vomiting, constipation, or any urinary issues. [facility] Past Medical History Medical History Kidney stone Endometriosis Anxiety and depression Chronic pain hips, back, arthritis Heart & renal disease, hypertensive benign with chronic kidney disease Pre-diabetes Surgical History Surgical History Status post laser lithotripsy of ureteral calculus H/O gynecological procedure Laprascopic endometriosis X3 D&C History of cholecystectomy History of tubal ligation Hx of appendectomy Family History Family History Father Diabetes mellitus Hypertension Heart problem quintuple bypass Grandparent AA (alcohol abuse) Heart problem Grandparent Colon abnormality Daughter Asthma, Onset Age: 20 Daughter Asthma Social History Social History Social History: Caffeine-daily Years smoked: 4 Smoking status: Former smoker Tobacco type: cigarettes Smoking end date: 04/20/22 Alcohol intake: current Drinks per week: 3 Alcohol use details: 3-4 servings per week Substance use: never Substance use type: does not use Lack of Transportation: No Lack of Food: Never True Current Housing: I Have Housing Concerned About Future Housing: No Difficulty Paying Gas/Electric Bills: No Difficulty Paying for Meds: No Currently Unemployed: No Education: Master's Degree or Higher Difficulty w/ Childcare or Family Care: No Living arrangements: with family Occupation/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 There is no relevant family history pertinent to the patient complaint. Exam Narrative: General: Well-developed, well nourished, acutely ill-appearing, dry mucous membranes Head: Normocephalic, atraumatic. Cardio: Tachycardic- Regular rate and rhythm, s1 and s2 normal, no murmur appreciated. Resp: Clear to auscultation bilaterally, no rhonchi, rales, wheezing or rubs. Abdomen: Soft, pliable, bowel sounds present in all quadrants, generalized tenderness with most abdominal pain over the upper abdomen, no organomegly, no CVAT tenderness. Course Course Level of Care: Express Care Visit Transfer Transfered to: [facility] Transfer rationale: Abdominal pain, nausea, diarrhea, dehydration Accepting physician: Dr. Pennington Transfer comments: POV MDM MDM Narrative Medical decision making narrative: At the time of visit patient is uncomfortable on the exam table. Patient appears to be nontoxic. Complaints of nausea, diarrhea, and sharp stabbing mid abdominal pain x2 day. She reports she feels weak and fatigued. States that every time she eats or drinks she has diarrhea. Pain is a constant sharp pain in the mid abdomen that waxes and wanes. Denies any urinary symptoms. No blood in her stool. Denies any chest pain or shortness of breath. On exam patient has dry mucous membranes,she is tachycardic-regular rate and rhythm, abdomen soft, pliable, nondistended, generalized tenderness to palpation but mostly in the mid upper abdomen, no CVAT tenderness, no organomegaly Plan: Patient has mid upper abdominal pain with nausea and diarrhea with dehydration. Recommend transfer to the ER for further evaluation. Patient agrees to go to [facility] emergency room. Contacted Dr. Pennington at [facility] and he accepts patient for transfer. Transfer via POV. Differential Diagnosis Differential Diagnosis: Differential diagnostic considerations for acute abdominal pain include surgical abdominal etiology, ischemic bowel, inflammatory bowel disease, gastritis, PUD, gastroenteritis, cardiac etiology, appendicitis, diverticulitis, bowel obstruction, kidney stone, pyelonephritis, abdominal aortic aneurysm, pancreatitis, constipation, endometriosis. Discharge Plan Discharge Clinical Impression: Abdominal pain Qualifiers: Abdominal location: upper abdomen, unspecified Qualified Code(s): R10.10 - Upper abdominal pain, unspecified Patient Disposition: Acute Care Hospital Condition: Stable Instructions: Antibiotic Form Patient Language: Kiswahili Prescriptions: No Action buspirone 5 mg tablet 5 mg PO BID Qty: 60 3RF dextroamphetamine-amphetamine [Adderall XR] 20 mg capsule,extended release 24hr 20 mg PO DAILY Qty: 30 0RF sertraline 100 mg tablet 200 mg PO QHS Qty: 180 0RF Follow-up/Referrals: Alvarado Carson APRN [Primary Care Provider, [facility]] Time of Disposition: 15:46 Quality NIHSS Nursing Documentation ED NIHSS nursing documentation: reviewed/agree
[2025-10-18 15:35] VITALS: BP 110/80; PULSE 109; RESP 18; TEMP 36.8; O2SAT 99
== END 2025-10-18 15:45 | disposition short-term general hospital (02) ==
PROVIDERS: Emergency Provider Nurse Practitioner Family; PCP Student in an Organized Health Care Education/Training Program
DX: R10.10 Upper abdominal pain, unspecified (principal); Z87.442 Personal history of urinary calculi; R73.03 Prediabetes; I12.9 Hypertensive chronic kidney disease with stage 1 through stage 4 chronic kidney disease, or unspecified chronic kidney disease; N18.9 Chronic kidney disease, unspecified
CPT/HCPCS: 99212; G0463

== ENCOUNTER 2025-10-18 16:08 | Emergency (ER) | payer BC, SELFPAY ==
--- NOTE | ~2025-10-18 | CT_ITS ---
CT abdomen pelvis w con INDICATION:right sided AP . COMPARISON: None. TECHNIQUE: Axial images of the abdomen and pelvis were obtained following infusion of 100 mL Isovue 300. Dose optimization technique was utilized. FINDINGS: The lung bases are clear. Fatty infiltration of the liver is noted. No intrahepatic mass or ductal dilatation is evident. The patient has had a cholecystectomy. The pancreas and spleen are normal in appearance. The adrenal glands are symmetric in size. The kidneys demonstrate symmetric uptake and excretion of contrast. There are bilateral renal cysts measuring up to 1.7 cm. There is no solid mass. There is no hydronephrosis. Evaluation of the stomach and bowel loops are limited due to lack of oral contrast. The bladder and rectum are normal. No free intraperitoneal fluid or air is evident. There is no significant retroperitoneal lymphadenopathy. The aorta, visceral vessels and renal arteries demonstrate normal caliber and patency. The lower thoracic and lumbar vertebrae are in normal alignment. IMPRESSION: No acute abnormality is noted in the abdomen and pelvis. Hepatic steatosis. Stable benign renal cysts. All CT scans at this facility are performed using low dose modulation techniques as appropriate to perform exam including the following: automated exposure control; use of iterative reconstruction technique; adjustment of the mA and/or kV according to patient size (this includes techniques or standardized protocols for targeted exams where dose is matched to indication/reason for exam). Reviewed, dictated and finalized at location S. TIC FABRICATOR IMPRESSION: No acute abnormality is noted in the abdomen and pelvis. Hepatic steatosis. Stable benign renal cysts. All CT scans at this facility are performed using low dose modulation techniqu es as appropriate to perform exam including the following: automated exposure c ontrol; use of iterative reconstruction technique; adjustment of the mA and/or kV according to patient size (this includes techniques or standardized protocol s for targeted exams where dose is matched to indication/reason for exam).
[2025-10-18 16:22] VITALS: BP 110/71; PULSE 106; RESP 18; TEMP 37.2; O2SAT 100
[2025-10-18 17:56] VITALS: BP 113/79; PULSE 103; RESP 22; O2SAT 95
[2025-10-18 18:01] VITALS: BP 125/80; PULSE 96; RESP 20; O2SAT 94
[2025-10-18 18:12] LABS: Hematocrit 42.6 % (37.0-47.0); Hemoglobin 14.1 g/dL (12.0-15.0); Immature Granulocyte Percent A 0.4 % (0-0.5); Lymphocytes Absolute Auto 0.87 K/mm3 (0.9-3.2); Mean Corpuscular HGB Conc 33.1 g/dl (32-36); Mean Corpuscular Hemoglobin 29.4 pg (26-34); Mean Corpuscular Volume 88.9 fl (80-100); Nucleated Red Blood Cells Absolute Auto 0.000 K/mm3 (0.0-0.012); Nucleated Red Blood Cells Perc 0.0 % (0.0-0.2); Platelet Count Result 260 k/mm3 (150-375); Red Blood Count 4.79 M/mm3 (4.2-5.4); White Blood Count 16.2 K/mm3 (4.5-10.0)
--- OUTSIDE RECORDS SUMMARY | 2025-10-18 18:15 | XMS_ITS | Encounter Summary ---
Author Organization [facility] Address [address] [place] [address] Phone Care Team Providers Care Police Pilot Name Role Phone Clementine Kelsey MD Primary Care Provider + Encounter Details Date Type Department Care Team (Latest Contact Info) Description 08/21/2017 Orders Only [facility] CONVERSION Scanning, Provider Social History Tobacco Use Types Packs/Day Years Used Date Smoking Tobacco: Former Smokeless Tobacco: Never Comments Yes Sex and Gender Information Value Date Recorded Sex Assigned at Not on file 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
--- OUTSIDE RECORDS SUMMARY | 2025-10-18 18:15 | XMS_ITS | Clinical Summary ---
Author Organization [facility] Address [address] [place] [address] Care Team Providers Care Loss Prevention Associate Name Role Phone Clementine Kelsey MD Primary Care Provider + Allergies Active Allergy Reactions Criticality Noted Date Comments Brompheniramine Palpitations Low Diphenhydramine-Phenylephri ne Other (See comments) Low Reaction: TACHYCARDIA, Guaifenesin Other (See comments) Low Reaction: TACHYCARDIA, Phenylpropanolamine Palpitations Low Medications 77-yxku-ctyrri 1-dha (VIRT-PN DHA) 27 mg iron-1 mg [...] (04/30/2018): Added automatically from request for surgery [id number] Encounter for sterilization 04/30/2018 Overview (04/30/2018): Added automatically from request for surgery [id number] 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 05/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 Herpes zoster without complication 05/30/2017 Resolved [...] curre ntly , third trimester 01/21/2018 Immunizations Immunization Administration Dates Next Due Influenza, Quadrivalent, Spl [...] MTHFR deficiency complicatin g , third trimester Social History Tobacco Use Types Packs/Day Years Used Date Smoking Tobacco: Light Smoker Smokeless Tobacco: Never Comments:socially, rarely Alcohol Use Standard Drinks/Week Comments Yes 0 (1 standard drink = 0.6 oz pur e alcohol) occasionally Comments No Sex and Gender Information Value Date Recorded Sex Assigned at Not on file 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 Was considered for cerclage - but records indicate that she was managed medically instead. Last Filed Vital Signs Vital Sign Reading Time Taken Comments Blood Pressure 115/74 05/28/2018 10:00 AM CDT Pulse 72 05/28/2018 10:15 AM CDT Temperature 36.5 C (97.7 F) 05/28/2018 9:19 AM CDT Respiratory Rate 17 05/28/2018 10:15 AM CDT Oxygen Saturation 98% 05/28/2018 10:15 AM CDT Inhaled Oxygen Concentration - - Weight 73 kg (160 lb 15 oz) 05/28/2018 7:03 AM C DT Height 157.5 cm (5' 2) 05/28/2018 7:03 AM CDT Body Mass Index 29.44 05/28/2018 7:03 AM CDT Plan of Treatment Not on file Insurance [facility] Advance Directives For more information, please contact: [phone] * Full Code (Latest Code Status on File) Date Activated Date Inactivated Comments 12/17/2017 11:18 PM 12/19/2017 2:04 PM * Full Code Date Activated Date Inactivated Comments 12/17/2017 8:21 AM 12/17/2017 11:18 PM Full CPR in case of cardiopulmonary arrest Care Teams Loss Prevention Associate Relationship Specialty Start Date End Date Clementine Kelsey MD PCP - General 06/11/17
--- OUTSIDE RECORDS SUMMARY | 2025-10-18 18:15 | XMS_ITS | Clinical Summary ---
Author Organization [facility] Address [address] [place] [address] Care Team Providers Care Lean Manufacturing Leader Name Role Phone Magdiel Patrick MD Primary Care Provider [phone] Ambrosio Villegas DO Unavailable [phone] Allergies No known active allergies Medications sertraline (ZOLOFT) 100 MG tablet Take 2 tablets (200 mg total) by mouth daily. Active phentermine (ADIPEX-P) 37.5 MG tablet Take 1 tablet (37.5 mg total) by mouth daily. Active tamsulosin (FLOMAX) 0.4 MG Cap Take 1 capsule (0.4 mg total) by mouth daily. 30 capsule 5 Active ondansetron (ZOFRAN-ODT) 4 MG disintegrating tablet Take 1 tablet (4 mg total) by mouth every 8 (eight) hours as needed for Nausea. 20 tablet 5 Active cefdinir (OMNICEF) 300 MG Cap capsule Take 1 capsule (300 mg total) by mouth 2 (two) times daily. Start evening dose on 11/04/24. 9 capsule 5 Active solifenacin (VESICARE) 5 MG tablet Take 1 tablet (5 mg total) by mouth daily. 30 tablet 5 Active oxyCODONE-acetamino phen (PERCOCET) 5-325 MG tabletIndications:A cute Pain < 3 Day Supply Take 1 tablet by mouth every 6 (six) hours as needed for Pain. Indications: Acute Pain < 3 Day Supply 7 tablet 5 Active Active Problems Problem Noted Date Diagnosed Date Dysuria 11/02/2024 Fever 11/02/2024 Low back pain 11/02/2024 Obsessive-compulsive disorder 11/02/2024 Nephrolithiasis 11/01/2024 Bilateral carpal tunnel syndrome 08/14/2023 Pain in joint of left shoulder 08/14/2023 Obesity 05/28/2023 DUB (dysfunctional uterine bleeding) 04/30/2018 Overview (11/02/2024): Added automatically from request for surgery [id number] Encounter for sterilization 04/30/2018 Overview (11/02/2024): Added automatically from request for surgery [id number] Herpes zoster without complication 05/30/2017 Homozygous MTHFR mutation 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 05/30/2017 Irregular intermenstrual bleeding 03/08/2017 Mixed anxiety and depressive disorder 03/08/2017 Overweight 03/08/2017 Urinary tract infectious disease 03/08/2017 Immunizations Immunization Administration Dates Next Due Fluzone (IIV3, Trivalent, 0.5 ML Prefilled Syrin ) 11/04/2024 Social History Tobacco Use Types Packs/Day Years Used Date Smoking Tobacco: Former Cigarettes Smokeless Tobacco: Never Tobacco Cessation:Counseling Given: Not Answered Alcohol Use Standard Drinks/Week Comments Never 0 (1 standard drink = 0.6 oz pur e alcohol) [facility] [employer] Answer Date Recorded In the past 12 months has e [employer], gas, oil, or water [employer] threatened to shut off services in your [...] any time in the past 12 m [facility], were you homeless or living in a correction (including now)? 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 Pulse 66 11/04/2024 7:53 AM ASSEMBLER WATCH TRAIN Temperature 36.7 C (98.1 F) 11/04/2024 7:53 AM ASSEMBLER WATCH TRAIN Respiratory Rate 18 11/04/2024 7:53 AM ASSEMBLER WATCH TRAIN Oxygen Saturation 95% 11/04/2024 7:53 AM ASSEMBLER WATCH TRAIN Inhaled Oxygen Concentration - - Weight 86.6 kg (190 lb 14.7 oz) 11/02/2024 2:33 PM ASSEMBLER WATCH TRAIN Height 157.5 cm (5' 2) 11/02/2024 2:33 PM ASSEMBLER WATCH TRAIN Body Mass Index 34.92 11/02/2024 2:33 PM ASSEMBLER WATCH TRAIN Plan of Treatment Health Maintenance Due Date Last Done Comments Cervical Cancer Screening Pap Smear (Age 30 to 64) Every 3 Years 1983 Annual Physical 1986 Hepatitis C 2001 Hepatitis B Vaccines (1 of 3 - 19+ 3-dose series) 2002 HPV Vaccines (1 - 3-dose SCDM series) 2010 Cervical Cancer Screening Pap with HPV Testing (Age 30 to 64) Every 5 Years 2013 Cervical Cancer Screening with HPV 2013 Mammogram Screening 2023 COVID-19 Vaccine ( season) 2025 02/15/2021, 12/18/2020, 12/18/2020, Additional history exists Influenza Adult (#1) 2025 11/04/2024, 07/24/2018, 07/29/2017, Additional history exists DTaP, Tdap and Td Vaccines (3 - Td or Tdap) 11/22/2027 11/22/2017, 07/23/2016 Hepatitis A Vaccines Aged Out No long er eligible based on patient's age to complete this topic Meningococcal B Vaccine Aged Out No l onger eligible based on patient's age to complete this topic Meningococcal Vaccine Aged Out No jesica bettie eligible based on patient's age to complete this topic Pneumococcal Vaccine: Pediatrics (0 to 5 Years) and At-Risk Patients (6 to 49 Years) Aged Out No longer eligible based on patient's age to complete this topic RSV Immunizations Under 20 Months Aged Out No longer eligible based on patient's age to complete this topic Medical Devices Implanted Type Area Supervisor Electronics Inspection Device Identifier Shelf Expiration Date Model / Serial / Lot Stent Ureteral Contour Vl 4.8fr X 22-30cm - [id number] Implanted:Qty : 1 on 11/02/2024 by Ghanshyam Barbosa MD at [facility] Stent Left: Ureter Parature [employer] [id number] 06/17/2027 [id number] 50 / / [id number] Insurance [facility] Advance Directives * Full Code (Latest Code Status on File) Date Activated Date Inactivated Comments 11/01/2024 1:20 PM 11/04/2024 1:29 PM Care Teams Lean Manufacturing Leader Relationship Specialty Start Date End Date Magdiel Patrick MD [address] [place] [address] PCP - General EMERGENCY MEDICINE 10/31/24 Ambrosio [place] [address] FAMILY PRACTICE 11/01/24
--- OUTSIDE RECORDS SUMMARY | 2025-10-18 18:15 | XMS_ITS | Data Portability ---
Author Organization [place] [facility] [place], Main Office Address [address] [place] [address] Care Team Providers Care Manager Production Name Role Phone LASHAY KELSEY Primary Care Provider LASHAY KELSEY Referring Provider [phone] Assessment No assessment recorded. Plan of Treatment Reminders Order Date Submit Date Provider Last Modified By Organization Details Last Modified Time Details Appointments None recorded. Lab CBC 2022 023 [facility] (Lab), [address] [place], [address], 03:07:46 TSH, serum or plasma 2022 023 [email or web address] [facility] (Lab), [address] [place], [address], 3 16:01:44 CMP, serum or plasma 2022 023 [facility] (Lab), [address] [place], [address], 3 03:07:43 HbA1c (hemoglobin A1c), blood 2022 023 [facility] (Lab), [address] [place], [address], 03:07:48 lipid panel, serum 2022 023 [facility] (Lab), [address] [place], [address], 3 03:07:47 urinalysis, complete 2022 023 [email or web address] [facility] (Lab), [address], [place], [address], 3 16:01:19 Referral physical therapist referral - *Please call pt to schedule* 2022 023 [email or web address] 256 [facility], [address], [place], [address], 3 09:10:51 orthopedic surgeon referral 2022 023 [email or web address] 3 [facility], [address], [place], [address], 3 07:49:37 Procedures None recorded. Surgeries None recorded. Imaging electromyog adama + nerve conduction study - Bilat Upper Extrem Please call pt to schedule 2022 [email or web address] [place] [address] (Cardiology & Emg), [address], [place], [address], 3 08:57:17 Medication Orders gabapentin 100 mg capsule 2022 023 [email or web address] 5 [facility] #[id number], [address], [place], [place], [id number], 3 13:37:15 phentermine 37.5 mg tablet 2022 023 [id number], [address], [place], [id number], 3 08:28:09 topiramate 25 mg tablet 2022 023 [email or web address] [id number], [address] [facility], [place], [place], [id number], 3 08:28:08 Patient TargetsNo targets recorded. Patient InstructionsNo instructions recorded. Reason for Referral Physical Therapist Referral for Pain of left shoulder joint *Please call pt to schedule* [facility]: 08/14/2023 Orthopedic Surgeon Referral for Bilateral carpal tunnel syndrome Referring Physician: Dotty Corbin [facility], Encounter Date: 08/14/2023 Results Created Date Observation Date Name Description Value Unit Range Abnormal Flag Note LastModifiedBy Organization Detail LastModifiedTime 08/14/2008/15/2023 COMP. METAB OLIC PANEL (14) glucose 108 mg/dL 70-99 above high normal Not Available [facility] ([facility]) [address] [place], [address], 08/17/2023 03:07:43 08/14/2008/15/2023 COMP. METAB OLIC PANEL (14) BUN 11 mg/dL 6-24 Not Available [facility] ([facility]) [address] [place], [address], 08/17/2023 03:07:43 08/14/2008/15/2023 COMP. METAB OLIC PANEL (14) creatinine 0.69 mg/dL 0.57-1 .00 Not Available [facility] ([facility]) [address] [place], [address], 08/17/2023 03:07:43 08/14/2008/15/2023 COMP. METAB OLIC PANEL (14) eGFR 112 mL/mi n/1.7 3 >59 Not Available [facility] ([facility]) [address] [place], [address], 08/17/2023 03:07:43 08/14/20 23 08/15/2023 COMP. METAB OLIC PANEL (14) BUN/creatini ne ratio 16 9-23 Not Available [facility] ([facility]) [address] [facility], [place], [address], 08/17/2023 03:07:43 08/14/2008/15/2023 COMP. METAB OLIC PANEL (14) sodium 138 mmol/ L 134-14 4 Not Available [facility] ([facility]) [address] [facility], [place], [address], 08/17/2023 03:07:43 08/14/2008/15/2023 COMP. METAB OLIC PANEL (14) potassium 4.0 mmol/ L 3.5-5. 2 Not Available [facility] ([facility]) [address] [facility], [place], [address], 08/17/2023 03:07:43 08/14/2008/15/2023 COMP. METAB OLIC PANEL (14) chloride 102 mmol/ L 96-106 Not Available [facility] ([facility]) [address] [facility], [place], [address], 08/17/2023 03:07:43 08/14/2008/15/2023 COMP. METAB OLIC PANEL (14) carbon dioxide, total 24 mmol/ L 20-29 Not Available [facility] ([facility]) [address] [facility] [address], [place], [address], 08/17/2023 03:07:43 08/14/2008/15/2023 COMP. METAB OLIC PANEL (14) calcium 9.4 mg/dL 8.7-10 .2 Not Available [facility] ([facility]) [address] [place], [address], 08/17/2023 03:07:43 08/14/2008/15/2023 COMP. METAB OLIC PANEL (14) protein, total 7.4 g/dL 6.0-8. 5 Not Available [facility] ([facility]) [address] [facility], [place], [address], 08/17/2023 03:07:43 08/14/20 23 08/15/2023 COMP. METAB OLIC PANEL (14) albumin 4.7 g/dL 3.9-4. 9 Not Available [facility] ([facility]) [address] [facility], [place], [address], 08/17/2023 03:07:43 08/14/2008/15/2023 COMP. METAB OLIC PANEL (14) globulin, total 2.7 g/dL 1.5-4. 5 Not Available [facility] ([facility]) [address] [facility], [place], [address], 08/17/2023 03:07:43 08/14/2008/15/2023 COMP. METAB OLIC PANEL (14) A/G ratio 1.7 1.2-2. 2 Not Available [facility] ([facility]) [address] [facility], [place], [address], 08/17/2023 03:07:43 08/14/2008/15/2023 COMP. METAB OLIC PANEL (14) bilirubin, total 0.4 mg/dL 0.0-1. 2 Not Available [facility] ([facility]) [address] [facility], [place], [address], 08/17/2023 03:07:43 08/14/2008/15/2023 COMP. METAB OLIC PANEL (14) alkaline phosphatase 111 IU/L 44-121 Not Available [facility] ([facility]) [address] [facility], [place], [address], 08/17/2023 03:07:43 08/14/2008/15/2023 COMP. METAB OLIC PANEL (14) AST (SGOT) 19 IU/L 0-40 Not Available [facility] ([facility]) [address] [facility], [place], [address], 08/17/2023 03:07:43 08/14/2008/15/2023 COMP. METAB OLIC PANEL (14) ALT (SGPT) 19 IU/L 0-32 Not Available [facility] ([facility]) [address] [facility], [place], [address], 08/17/2023 03:07:43 08/14/2008/15/2023 UA/M W/RFL X CULTU RE, ROUTI NE specific gravity 1.020 1.005- 1.030 Not Available [facility] ([facility]) [address] [facility], [place], [address], 08/17/2023 03:07:45 08/14/2008/15/2023 UA/M W/RFL X CULTU RE, ROUTI NE pH 6.0 5.0-7. 5 Not Available [facility] ([facility]) [address] [facility], [place], [address], 08/17/2023 03:07:45 08/14/2008/15/2023 UA/M W/RFL X CULTU RE, ROUTI NE urine-color Yellow yellow Not Available [facility] ([facility]) [address] [place], [address], 08/17/2023 03:07:45 08/14/2008/15/2023 UA/M W/RFL X CULTU RE, ROUTI NE appearance Cloudy clear abnormal Not Available [facility] ([facility]) [address] [place], [address], 08/17/2023 03:07:45 08/14/2008/15/2023 UA/M W/RFL X CULTU RE, ROUTI NE WBC esterase 2+ negati ve abnormal Not Available [facility] ([facility]) [address] [place], [address], 08/17/2023 03:07:45 08/14/2008/15/2023 UA/M W/RFL X CULTU RE, ROUTI NE protein Negati ve negati ve/tra ce Not Available [facility] ([facility]) [address] [place], [address], 08/17/2023 03:07:45 08/14/2008/15/2023 UA/M W/RFL X CULTU RE, ROUTI NE glucose Negati ve negati ve Not Available [facility] ([facility]) [address] [place], [address], 08/17/2023 03:07:45 08/14/2008/15/2023 UA/M W/RFL X CULTU RE, ROUTI NE ketones Negati ve negati ve Not Available [facility] ([facility]) [address] [place], [address], 08/17/2023 03:07:45 08/14/2008/15/2023 UA/M W/RFL X CULTU RE, ROUTI NE occult blood Negati ve negati ve Not Available [facility] ([facility]) [address] [place], [address], 08/17/2023 03:07:45 08/14/2008/15/2023 UA/M W/RFL X CULTU RE, ROUTI NE bilirubin Negati ve negati ve Not Available [facility] ([facility]) [address] [place], [address], 08/17/2023 03:07:45 08/14/2008/15/2023 UA/M W/RFL X CULTU RE, ROUTI NE urobilinogen ,semi-qn 0.2 mg/dL 0.2-1. 0 Not Available [facility] ([facility]) [address] [place], [address], 08/17/2023 03:07:45 08/14/2008/15/2023 UA/M W/RFL X CULTU RE, ROUTI NE nitrite, urine Negati ve negati ve Not Available [facility] ([facility]) [address] [place], [address], 08/17/2023 03:07:45 08/14/2008/15/2023 UA/M W/RFL X CULTU RE, ROUTI NE microscopic examination See below: Micro scopi c was indic ated and was perfo rmed. Not Available [facility] ([facility]) [address] [facility] [facility], [place], [address], 08/17/2023 03:07:45 08/14/2008/15/2023 UA/M W/RFL X CULTU RE, ROUTI NE WBC 0-5 /hpf 0 - 5 Not Available [facility] ([facility]) [address] [facility], [place], [address], 08/17/2023 03:07:45 08/14/2008/15/2023 UA/M W/RFL X CULTU RE, ROUTI NE RBC 0-2 /hpf 0 - 2 Not Available [facility] ([facility]) [address] [place], [address], 08/17/2023 03:07:45 08/14/2008/15/2023 UA/M W/RFL X CULTU RE, ROUTI NE epithelial cells (non renal) 0-10 /hpf 0 - 10 Not Available [facility] ([facility]) [address] [place], [address], 08/17/2023 03:07:45 08/14/2008/15/2023 UA/M W/RFL X CULTU RE, ROUTI NE epithelial cells (renal) IGNITION MECHANIC Not Available [facility] ([facility]) [address] [place], [address], 08/17/2023 03:07:45 08/14/20 23 08/15/2023 UA/M W/RFL X CULTU RE, ROUTI NE casts None seen /lpf none seen Not Available [facility] ([facility]) [address] [facility], [place], [address], 08/17/2023 03:07:45 08/14/2008/15/2023 UA/M W/RFL X CULTU RE, ROUTI NE cast type IGNITION MECHANIC Not Available [facility] ([facility]) [address] [facility], [place], [address], 08/17/2023 03:07:45 08/14/2008/15/2023 UA/M W/RFL X CULTU RE, ROUTI NE crystals IGNITION MECHANIC Not Available [facility] ([facility]) [address] [facility], [place], [address], 08/17/2023 03:07:45 08/14/2008/15/2023 UA/M W/RFL X CULTU RE, ROUTI NE crystal type IGNITION MECHANIC Not Available [facility] ([facility]) [address] [facility], [place], [address], 08/17/2023 03:07:45 08/14/2008/15/2023 UA/M W/RFL X CULTU RE, ROUTI NE mucus threads IGNITION MECHANIC Not Available [facility] ([facility]) [address] [facility], [place], [address], 08/17/2023 03:07:45 08/14/2008/15/2023 UA/M W/RFL X CULTU RE, ROUTI NE bacteria Few none seen/f ew Not Available [facility] ([facility]) [address] [facility], [place], [address], 08/17/2023 03:07:45 08/14/2008/15/2023 UA/M W/RFL X CULTU RE, ROUTI NE yeast IGNITION MECHANIC Not Available [facility] ([facility]) [address] [facility], [place], [address], 08/17/2023 03:07:45 08/14/2008/15/2023 UA/M W/RFL X CULTU RE, ROUTI NE trichomonas IGNITION MECHANIC Not Available [facility] ([facility]) [address] [facility], [place], [address], 08/17/2023 03:07:45 08/14/2008/15/2023 UA/M W/RFL X CULTU RE, ROUTI NE comment IGNITION MECHANIC Not Available [facility] ([facility]) [address] [facility], [place], [address], 08/17/2023 03:07:45 08/14/2008/15/2023 UA/M W/RFL X CULTU RE, ROUTI NE microscopic examination IGNITION MECHANIC Not Available [facility] ([facility]) [address] [facility] [address] [facility], [place], [address], 08/17/2023 03:07:45 08/14/2008/15/2023 UA/M W/RFL X CULTU RE, ROUTI NE urinalysis reflex Commen t This speci men has refle xed to a Urine Cultu re. Not Available [facility] ([facility]) [address] [facility], [place], [address], 08/17/2023 03:07:45 08/14/2008/16/2023 UA/M W/RFL X CULTU RE, ROUTI NE urine culture, routine Final report Not Available [facility] ([facility]) [address] [facility], [place], [address], 08/17/2023 03:07:45 08/14/2008/16/2023 UA/M W/RFL X CULTU RE, ROUTI NE result 1 No growth Not Available [facility] ([facility]) [address] [facility], [place], [address], 08/17/2023 03:07:45 08/14/2008/15/2023 CBC, NO DIFFE RENTI AL/PL ATELE T WBC 9.0 x10e3 /uL 3.4-10 .8 Not Available [facility] ([facility]) [address] [facility], [place], [address], 08/17/2023 03:07:46 08/14/2008/15/2023 CBC, NO DIFFE RENTI AL/PL ATELE T RBC 4.83 x10e6 /uL 3.77-5 .28 Not Available [facility] ([facility]) [address] [facility], [place], [address], 08/17/2023 03:07:46 08/14/2008/15/2023 CBC, NO DIFFE RENTI AL/PL ATELE T hemoglobin 14.2 g/dL 11.1-1 5.9 Not Available [facility] ([facility]) [address] [place], [address], 08/17/2023 03:07:46 08/14/2008/15/2023 CBC, NO DIFFE RENTI AL/PL ATELE T hematocrit 43.4 % 34.0-4 6.6 Not Available [facility] ([facility]) [address] [facility], [place], [address], 08/17/2023 03:07:46 08/14/2008/15/2023 CBC, NO DIFFE RENTI AL/PL ATELE T MCV 90 fL 79-97 Not Available [facility] ([facility]) [address] [place], [address], 08/17/2023 03:07:46 08/14/2008/15/2023 CBC, NO DIFFE RENTI AL/PL ATELE T MCH 29.4 pg 26.6-3 3.0 Not Available [facility] ([facility]) [address] [place], [address], 08/17/2023 03:07:46 08/14/2008/15/2023 CBC, NO DIFFE RENTI AL/PL ATELE T MCHC 32.7 g/dL 31.5-3 5.7 Not Available [facility] ([facility]) [address] [facility], [place], [address], 08/17/2023 03:07:46 08/14/2008/15/2023 CBC, NO DIFFE RENTI AL/PL ATELE T RDW 12.2 % 11.7-1 5.4 Not Available [facility] ([facility]) [address] [facility], [place], [address], 08/17/2023 03:07:46 08/14/2008/15/2023 CBC, NO DIFFE RENTI AL/PL ATELE T NRBC IGNITION MECHANIC Not Available [facility] ([facility]) [address] [facility], [place], [address], 08/17/2023 03:07:46 08/14/2008/15/2023 LIPID PANEL cholesterol, total 251 mg/dL 100-19 9 above high normal Not Available [facility] ([facility]) [address] [place], [address], 08/17/2023 03:07:47 08/14/2008/15/2023 LIPID PANEL triglyceride s 117 mg/dL 0-149 Not Available [facility] ([facility]) [address] [place], [address], 08/17/2023 03:07:47 08/14/2008/15/2023 LIPID PANEL HDL cholesterol 60 mg/dL >39 Not Available [facility] ([facility]) [address] [place], [address], 08/17/2023 03:07:47 08/14/2008/15/2023 LIPID PANEL VLDL cholesterol alysha 21 mg/dL 5-40 Not Available [facility] ([facility]) [address] [place], [address], 08/17/2023 03:07:47 08/14/2008/15/2023 LIPID PANEL LDL chol calc ([facility]) 170 mg/dL 0-99 above high normal Not Available [facility] ([facility]) [address] [facility], [place], [address], 08/17/2023 03:07:47 08/14/2008/15/2023 LIPID PANEL comment: IGNITION MECHANIC Not Available [facility] ([facility]) [address] [facility], [place], [address], 08/17/2023 03:07:47 08/14/2008/15/2023 TSH TSH 1.810 uIU/m L 0.450- 4.500 Not Available [facility] ([facility]) [address] [place], [address], 08/17/2023 03:07:48 08/14/2008/15/2023 HEMOG LOBIN A1C hemoglobin A1C 5.1 % 4.8-5. 6 Predi abete s: 5.7 - 6.4 Diabe loree: >6.4 Glyce anabel contr ol for adult s with diabe loree: <7.0 Not Available [facility] ([facility]) [address] [facility], [place], [address], 08/17/2023 03:07:48 09/02/20 22 09/02/2022 XR, chest No observ ation record ed. [id number] [facility] [address], [place], [address], 12/19/2022 02:46:47 Result Notes None recorded. Problems Name Problem SNOMED Code Status Onset Date Resolution Date Notes Provider Name and Address Organization Details Recorded Time Obsessive- compulsive disorder 708279752 Active Not Available [facility] 3 02:39:49 Low back pain 017747692 Active Not Available [facility] 3 02:39:49 Fever 557942618 Active Not Available [facility] 3 02:39:49 Dysuria 63991622 Active Not Available [facility] 3 02:39:49 Mixed anxiety and depressive disorder 682807801 Active 2016 Not Available [facility] 3 02:39:49 Overweight 130529852 Active 2016 Not Available [facility] 3 02:39:49 Irregular intermenst rual bleeding 67699075 Active 2016 Not Available [facility] 3 02:39:49 Urinary tract infectious disease 82210446 Active 2016 Not Available [facility] 3 02:39:49 Obesity 646878479 Active 2022 BRUNA Red [address], [address], [place], [address] , [facility] 3 17:52:46 Bilateral carpal tunnel syndrome 2577427598398 9101 Active 2022 FRANKY Khan [address], [address], [place], [address] , [employer] 3 08:58:01 Pain of left shoulder joint 7839183593858 9109 Active 2022 FRANKY Khan [address], [address], [place], [address] , [facility] 3 09:00:30 Problem Notes None recorded. Procedures Surgical History Date Name Laterality Status Provider Name and Address Organization Details Recorded Time 01/04/20 20 Date of Last Pap Smear completed Not Available [facility] 12/19/2022 02:34:21 05/28/20 18 COMMUNICATION INSTRUCTOR Surgery completed Not Available [facility] 12/19/2022 02:34:23 10/27/19 07 COMMUNICATION INSTRUCTOR Surgery completed Not Available [facility] 12/19/2022 02:34:23 Appendectomy completed Not Available [facility] 12/19/2022 02:34:23 COMMUNICATION INSTRUCTOR Surgery completed Not Available [facility] 12/19/2022 02:34:23 cholecystectomy completed Not Available [facility] 12/19/2022 02:34:23 Imaging Results None recorded. Procedure Notes None recorded. Medical Equipment None Reported. Allergies Allergen ID Allergen Name Allergen Category Reaction Reaction Severity Criticality Documentation Date Start Date Code Code System Note Provider Name and Address Organization Details Recorded Time 3589 Robitussi n medicatio n irregular heart rate Not available Not available 12/19/2022 07643 2 RxNorm Not Available [facility] 3 02:46:28 3590 brompheni ramine / phenyleph rine medicatio n irregular heart rate Not available Not available 12/19/2022 87414 4 RxNorm Not Available [facility] 3 02:46:28 Medications Name Sig Start Date [...] Available Not Available Gonal-F RFF Redi-Ject 450 unit/0.72 mL subcutane ous pen injector active Not Available Not Available Not Available Viibryd 10 mg (7)-20 mg (23) tablets in a dose pack take as directed active Not Available Not Available No t Available [employer] COVID-19 Antigen Home Test kit active Not Available Not Available Not Available Vitals Date Recorded Body mass index (BMI) Body height Oxygen saturation Heart rate Body temperature Body weight Systolic And Diastolic Provider Name and Address Organization Details Last Updated DateTime 3 31.1 kg/m2 157.48 cm 98 % 86 /min 98.1 [degF] 47076.7 g 110/68 mm[Hg] Not Available [facility] 3 02:38:49 Date Recorded Body temperature Provider Name a nd Address Organization Details Last Updated DateTime 02/05/2023 97.5 [degF] Rod Nieves [address] [facility], [address], [place], [address], [place] [facility] [address] [facility] 02/05/2023 08:08:35 Date Recorded Body height Body mass index (BMI) Body weight Heart rate Oxygen saturation Systolic And Diastolic Provider Name and Address Organization Details Last Updated DateTime 3 157.48 cm 32.2 kg/m2 06725.2 6 g 96 /min 98 % 125/90 mm[Hg] Jenna De Leon MA [facility] [address] [facility] 3 08:03:46 Date Recorded Body mass index (BMI) Body height Oxygen saturation Heart rate Body temperature Body weight Systolic And Diastolic Provider Name and Address Organization Details Last Updated DateTime 2 32.9 kg/m2 157.48 cm 98.02 % 60 /min 97.2 [degF] 00448.6 3 g 118/64 mm[Hg] Not Available [facility] 3 02:38:49 Date Recorded Body mass index (BMI) Body height Oxygen saturation Heart rate Respiratory rate Body temperature Body weight Systolic And Diastolic Provider Name and Address Organization Details Last Updated DateTime 2 31.1 kg/m2 157.48 cm 98 % 82 /min 16 /min 98.2 [degF] 41288.7 g 116/74 mm[Hg] Not Available [facility] 3 02:38:49 Date Recorded Body height Body mass index (BMI) Body weight Body temperature Heart rate Oxygen saturation Systolic And Diastolic Provider Name and Address Organization Details Last Updated DateTime 3 157.48 cm 34.8 kg/m2 23427.5 5 g 100.3 [degF] 85 /min 98 % 124/80 mm[Hg] Gena Zhao CNA [facility] [employer] [facility] 3 08:38:58 Social History Question Answer Notes LastModified by Organizat ion Details LastModified Time Tobacco Smoking Status Current Every Day Smoker Not Available [facility] 12/19/2022 02:33:54 What Is Your Level Of Caffeine Consumption? Occasional [id number] Information not available 12/19/2022 In The 14 Days Before Symptom Onset, Have You Had Close Contact With A Laboratory-confir med COVID-19 While That Case Was Ill? No [id number] Information not available 12/19/2022 In The 14 Days Before Symptom Onset, Have You Had Close Contact With A Person Who Is Under Investigation For COVID-19 While That Person Was Ill? No [id number] Information not available 12/19/2022 Which Illicit Or Recreational Drugs Have You Used? No [id number] Information not available 12/19/2022 Have You Ever Been Counseled For Unhealthy Alcohol Use? No [email or web address] Information not available 02/05/2023 Do You Use Your Seat Belt Or Car Seat Routinely? Yes [email or web address] Information not available 02/05/2023 At What Age Did You Start Smoking Tobacco? 1 [id number] Information not available 12/19/2022 How Much Tobacco Do You Smoke? 1 PPW [id number] Information not available 12/19/2022 Do You Participate In Social Media? Yes [email or web address] Information not available 02/05/2023 Has Tobacco Cessation Counseling Been Provided? No [email or web address] Information not available 02/05/2023 Sex: Unknown Functional Status Question Answer Note LastModified by Organizat ion Details LastModified Time What is your level of alcohol consumption? 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 Never used electronic cigarettes [id number] Information not available 12/19/2022 What is your exercise level? Occasional [id number] Information not available 12/19/2022 Mental Status Question Answer Note LastModified by Organization D etails LastModified Time Do you feel stressed (tense, restless, nervous, or anxious, or unable to sleep at night)? [id number] [email or web address] Information not available 02/05/2023 Family History Relationship Description Onset Age of this Age Resolved Age Notes LastModified by Organization Details LastModified Time Father Diabetes mellitus [id number] Not available 12/19/2022 02:34:26 Father Hypertensive disorder [id number] Not available 12/19/2022 02:34:26 Notes:htn, no breast, [...] (COVID-19) vaccine, UNSPECIFIED 1 completed Not Available [facility] 12/19/2022 02:46:22 Tdap 6 completed Not Available [facility] 12/19/2022 02:46:22 COVID-19, mRNA, LNP-S, PF, 30 mcg/0.3 mL dose 1 completed Not Available [facility] 12/19/2022 02:46:22 Influenza, split virus, quadrivalent, PF 8 completed Not Available [facility] 12/19/2022 02:46:22 Past Encounters Encounter ID Performer Location Encounter Start Date Encounter Closed Date Diagnosis/Indication Diagnosis SNOMED-CT Code Diagnosis ICD10 Code Diagnosis IMO Codes Diagnosis Note [id number] [facility] ic[facility]_ IGRATION_ DEFAULT_1 _1 , 01/30/2021 00:00:00 01/30/2021 18:24:58 [id number] FRANKY Khan [place] [place] [facility] [place] [address] [place] [address] 04/05/2021 00:00:00 04/05/2021 13:44:03 [id number] FRANKY Khan S_[facility] [place] [address] [facility] [address] [place] [address] 04/12/2022 00:00:00 04/12/2022 14:15:09 [id number] CARLTON Nieves S_[facility] [place] [address] [place] [address] 05/16/2022 00:00:00 05/16/2022 12:17:29 [id number] CARLTON Nieves S[facility] [place] [address] [place] [address] 06/20/2022 00:00:00 06/20/2022 16:59:05 [id number] CARLTON Nieves [facility] [place] [address] [facility] [address] [place] [address] 11/06/2022 00:00:00 11/06/2022 12:48:47 [id number] CARLTON Nieves [facility] [place] [address] [facility] [address] [place] [address] 02/05/2023 07:57:01 02/05/2023 08:28:29 Dietary management surveillance [id number] Z71.3 Wt today: 176 lbs.Pt. had been [...] well. BP/HR stable.F/u in 4 months. 05/16/22: [id number]/12- 173 lbs.Has been struggling with weight loss. [...] . BP/HR stable today.F/u in 4 weeks. [id number] Lashay Kelsey MD [facility] [place] [address] [facility] [address] [place] [address] 08/14/2023 08:30:12 08/14/2023 12:30:42 Bilateral carpal tunnel syndrome [id number] G56.03 Renewed referral for specialist EMG to [...] visit. Pain of le ft shoulder joint [id number] M25.512 acuteNo known injury. Has good ROM and strength to the shoulder. Recommend PT and continuing to use the joint to prevent decreased function. Can use alternatin g tylenol 1000 mg and ibuprofen 200-600 mg every 6 hours as needed for pain.Follo w up in one month. Overweight [id number] E66 .3 ChronicOn phentermin e 37.5 mg [...] ollow-up in one month. Screening for disorder [id number] Z13.9 Z13.1 Z13.29 Z13.0 Z13.220 Has been >1 year since she received basic labwork. Will obtain basic labwork and follow-up in one month. Health Concerns Section Related Observation LastModified by Organization Detai ls LastModified Time None Recorded Concern Status LastModified by Organization Details LastModified Time None Recorded Advance Directives Directive None Recorded Payers Insurance Date Sequence Insurance Name Policy Number Policy Ocampo Covered Member ID Ocampo Member ID Guarantor Name 09/08/2023 1 [facility] [id number] Pili Garcia Ellie [id number] Pili Bedoyaa Notes Date Note Type Note Provider Name and Address Organization Details Recorded Time 02/05/2023 text/html Pt. here to follow-up on weight loss. She has gained back weight, but states she has only been on phentermine again for about the last week, before that she had been off it. CARLTON Nieves [address], [facility] [address] [place], [address], [employer] 02/05/2023 11:48:21 08/14/2023 text/html Carpal tunnel: bilateral hands. 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 Had referral to see specialist in [place] but didn't go. Has been doing exercises [...] period in 5 years had an ablation. FRANKY Khan [address], [address], [place], [address], [employer] 08/14/2023 13:38:48 OBGyn Episode No OBEpisode recorded.
--- OUTSIDE RECORDS SUMMARY | 2025-10-18 18:15 | XMS_ITS | Encounter Summary ---
Author Organization [facility] Address [address] [place] [address] Phone Care Team Providers [facility] Name Role Phone Clementine Kelsey MD Primary Care Provider + Encounter Details Date Type Department Care Team (Latest Contact Info) Description 10/22/2017 Orders Only [facility] CONVERSION Scanning, Provider Social History Tobacco Use Types Packs/Day Years Used Date Smoking Tobacco: Former Smokeless Tobacco: Never Comments Yes Sex and Gender Information Value Date Recorded Sex Assigned at Not on file Legal Sex Female 9:17 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 INSPE[employer] Gender Identity Not on file Sexual Orientation Not on file documented as of this encounter Plan of Treatment Not on file documented as of this encounter Procedures Procedure Name Priority Date/Time Associated Diagnosis Comments OBSTETRIC/GYNECOLOGY ULTRASONOGRAPHY REPORT 11/13/2017 1:55 PM MANAGER INSPECTION OBSTETRIC/GYNECOLOGY ULTRASONOGRAPHY REPORT 10/22/2017 10:34 AM MANAGER INSPECTION documented in this encounter Results * OBSTETRIC/GYNECOLOGY ULTRASONOGRAPHY REPORT (11/13/2017 1:55 PM MANAGER INSPECTION) Anatomical Region Laterality Modality Ultrasound us Provider Scanning IMG OB US PROCEDURES Final Res ult * OBSTETRIC/GYNECOLOGY ULTRASONOGRAPHY REPORT (10/22/2017 10:34 AM MANAGER INSPECTION) Anatomical Region Laterality Modality Ultrasound us Provider Scanning IMG OB US PROCEDURES Final Res ult documented in this encounter Visit Diagnoses Not on filedocumented in this encounter Care Teams [facility] Relationship Specialty Start Date End Date Clemenitne Kelsey MD PCP - General 06/11/17 documented as of this encounter
[2025-10-18 18:22] LABS: Alanine Aminotransferase 23 U/L (6-35); Albumin Level 4.4 g/dL (3.5-5.1); Alkaline Phosphatase 116 U/L (38-126); Anion Gap 6 mmol/L (4-12); Aspartate Amino Transferase 29 U/L (14-36); Bilirubin,Total 1.2 mg/dL (0.2-1.3); Blood Urea Nitrogen 11 mg/dL (7-17); Calcium 8.7 mg/dL (8.4-10.2); Carbon Dioxide 25 mmol/L (22-30); Chloride 103 mmol/L (98-107); Estimated CRCL calculation 119 ml/min; Estimated Glomerular Filt Rate > 60; Glucose 101 mg/dL (65-110); Lipase 36 U/L (23-300); Potassium 3.9 mmol/L (3.4-5.0); Sodium 134 mmol/L (137-145); Total Protein 7.8 g/dL (6.3-8.2)
[2025-10-18 18:27] LABS: Add Urine Microscopic? YES; Appearance Urine Clear (Clear); Glucose Urine UA Negative (Negative); Leukocyte Esterase Ur Trace LEU/UL (Negative); Nitrate Urine Negative (Negative); Non Pathogenic Casts 0-2; Specific Grav Ur 1.024 (1.001-1.035)
[2025-10-18] MEDS: SODIUM CHLORIDE 0.9% IV 1,000 ML 999 ML IV CONT (18:40)
[2025-10-18] MEDS: MORPHINE SULFATE (*CRX) 4 MG/ML INJ IV PUSH (18:40)
[2025-10-18] MEDS: ONDANSETRON INJ 4 MG/2 ML VIAL IV PUSH (18:40)
[2025-10-18 18:59] LABS: Influenza A QL RT-PCR Negative (Negative); Influenza B QL RT-PCR Negative (Negative); RSV RNA, RT-PCR Negative (Negative); SARS-CoV-2 RNA PCR Negative (Negative)
--- NOTE | 2025-10-18 19:48 | ED.GENADULT ---
HPI - General Adult General Chief complaint: Abdominal Pain Stated complaint: abd pain, nausea,vomiting Time Seen by Provider: 10/18/25 18:00 History of Present Illness HPI narrative: Patient is a 40-year-old female who presents ER with abdominal pain as well as nausea and vomiting. It has been associated with diarrhea. Ongoing for several days. No known sick contacts. No blood in stool or emesis. Feels very fatigued and dehydrated. No syncope. She has had her appendix and her gallbladder removed. Majority of her pain is on the right side. No urinary frequency or urgency or dysuria. Related Data Allergies Allergy/AdvReac Type Severity Reaction Status Date / Time guaifenesin Allergy Unknown Unknown Verified 10/18/25 18:15 brompheniramine AdvReac Unknown TACHYCARDIA Verified 10/18/25 18:15 phenylpropanolamine AdvReac Unknown TACHYCARDIA Verified 10/18/25 18:15 Review of Systems Review of Systems: All systems reviewed & are unremarkable except as noted in HPI and below Constitutional: Constitutional: Reports no additional constitutional complaints ENT: Reports system reviewed and no additional complaints, except as documented Cardiovascular: Cardiovascular: Reports no additional cardiovascular complaints Respiratory: Respiratory: Reports no additional respiratory complaints Gastrointestinal: Gastrointestinal: Reports no additional gastrointestinal complaints Musculoskeletal: Musculoskeletal: Reports no additional musculoskeletal complaints PMFSH Past Medical History Medical History Kidney stone Endometriosis Anxiety and depression Chronic pain hips, back, arthritis Heart & renal disease, hypertensive benign with chronic kidney disease Pre-diabetes Surgical History Surgical History Status post laser lithotripsy of ureteral calculus H/O gynecological procedure Laprascopic endometriosis X3 D&C History of cholecystectomy History of tubal ligation Hx of appendectomy Family History Family History Father Diabetes mellitus Hypertension Heart problem quintuple bypass Grandparent AA (alcohol abuse) Heart problem Grandparent Colon abnormality Daughter Asthma, Onset Age: 20 Daughter Asthma Social History Social History Social History: Caffeine-daily Years smoked: 4 Smoking status: Former smoker Tobacco type: cigarettes Smoking end date: 04/20/22 Alcohol intake: current Drinks per week: 3 Alcohol use details: 3-4 servings per week Substance use: never Substance use type: does not use Lack of Transportation: No Lack of Food: Never True Current Housing: I Have Housing Concerned About Future Housing: No Difficulty Paying Gas/Electric Bills: No Difficulty Paying for Meds: No Currently Unemployed: No Education: Master's Degree or Higher Difficulty w/ Childcare or Family Care: No Living arrangements: with family Occupation/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 HEAD: Normocephalic, atraumatic. ENT: Mucous membranes moist. CHEST: Clear to auscultation. No respiratory distress. HEART: Tachycardic and regular. Normal peripheral pulses. ABDOMEN: Soft, mildly tender right lower and right upper quadrants nondistended. EXTREMITIES: Normal range of motion. No edema. SKIN: Warm, dry, no rash. NEURO: Alert and oriented x3. PSYCH: Normal mood and affect. Course Course Emergency Course: Patient received morphine for pain, Zofran for nausea. She was given 1 L IV fluid. Urinalysis without infection. CMP without significant electrolyte disturbance or renal failure. Liver enzymes normal. White blood cell count is elevated at 16.2 with 82% neutrophils. Likely reactive to vomiting and what is considered to be a GI illness. CT scan without acute illness. Vital Signs Vital signs: Vital Signs Temperature 99 F 10/18/25 16:22 Pulse Rate 106 H 10/18/25 16:22 Respiratory Rate 18 10/18/25 16:22 Blood Pressure 110/71 10/18/25 16:22 Pulse Oximetry 100 10/18/25 16:22 Oxygen Delivery Room Air 10/18/25 16:22 Temperature 99 F 10/18/25 16:22 Pulse Rate 96 10/18/25 18:01 Respiratory Rate 20 10/18/25 18:01 Blood Pressure 125/80 10/18/25 18:01 Pulse Oximetry 94 10/18/25 18:01 Oxygen Delivery Room Air 10/18/25 16:22 MDM Differential Diagnosis Differential Diagnosis: Gastritis, diverticulitis, bowel obstruction, pyelonephritis, UTI Lab Data [facility] Lab Attestation statement: I personally reviewed the patient's lab results. 10/18/25 18:05 10/18/25 18:05 Labs: Lab Results 10/18/25 10/18/25 Range/Units 18:05 18:14 WBC 16.2 H (4.5-10.0) K/mm3 RBC 4.79 (4.2-5.4) M/mm3 Hgb 14.1 (12.0-15.0) g/dL Hct 42.6 (37.0-47.0) % MCV 88.9 (80-100) fl MCH 29.4 (26-34) pg MCHC 33.1 (32-36) g/dl RDW 12.8 (11.5-14.5) % Plt Count 260 (150-375) k/mm3 MPV 9.0 (7.4-10.4) fl Immature Gran % (Auto) 0.4 (0-0.5) % Neut % (Auto) 89.0 H (45.5-73.1) % Lymph % (Auto) 5.4 L (18.3-44.2) % Buchanan % (Auto) 4.9 (2.6-8.5) % Eos % (Auto) 0.1 (0-4.4) % Baso % (Auto) 0.2 (0.2-1.2) % Lymph # (Auto) 0.87 L (0.9-3.2) K/mm3 Buchanan # (Auto) 0.8 H (0.1-0.6) K/mm3 Eos # (Auto) 0.0 (0-0.3) K/mm3 Baso # (Auto) 0.0 (0.0-0.1) K/mm3 Abs Immat Gran (auto) 0.06 H (0.00-0.031) K/mm3 Absolute Neuts (auto) 14.4 H (1.3-6.7) K/mm3 Absolute Nucleated RBC 0.000 (0.0-0.012) K/mm3 Nucleated RBC % 0.0 (0.0-0.2) % Sodium 134 L (137-145) mmol/L Potassium 3.9 (3.4-5.0) mmol/L Chloride 103 (98-107) mmol/L Carbon Dioxide 25 (22-30) mmol/L Anion Gap 6 (4-12) mmol/L BUN 11 (7-17) mg/dL Creatinine 0.56 L (0.7-1.0) mg/dL Estim Creat Clear Calc 119 ml/min Estimated GFR > 60 (59 - ) Glucose 101 (65-110) mg/dL Calcium 8.7 (8.4-10.2) mg/dL Total Bilirubin 1.2 (0.2-1.3) mg/dL AST 29 (14-36) U/L ALT 23 (6-35) U/L Alkaline Phosphatase 116 (38-126) U/L Total Protein 7.8 (6.3-8.2) g/dL Albumin 4.4 (3.5-5.1) g/dL Lipase 36 (23-300) U/L Urine Color Yellow (Yellow) Urine Appearance Clear (Clear) Urine pH 7.0 (5.0-9.0) Ur Specific Garibaldi 1.024 (1.001-1.035) Urine Protein Negative (Negative) mg/dL Urine Glucose (UA) Negative (Negative) mg/dL Urine Ketones 3+ H (Negative) mg/dL Ur Blood (Man) Negative (Negative) Urine Nitrate Negative (Negative) Urine Bilirubin Negative (Negative) Urine Urobilinogen 1.0 (<2.0) mg/dL Leukocyte Esterase Rfl Trace H (Negative) AIDE/UL Urine RBC 3-5 H (0-2) /hpf Urine WBC 0-5 (0-3) /hpf Ur Squamous Epith Cells Occasional (Few) /hpf Urine Bacteria Rare /hpf Urine Casts 0-2 Influenza A (RT-PCR) Negative (Negative) Influenza B (RT-PCR) Negative (Negative) RSV (RT-PCR) Negative (Negative) SARS-CoV-2 RNA (RT-PCR) Negative (Negative) Imaging Data Radiologist's impression: ITS Impressions Abdomen/Pelvis CT 10/18/25 18:53 IMPRESSION: No acute abnormality is noted in the abdomen and pelvis. Hepatic steatosis. Stable benign renal cysts. All CT scans at this facility are performed using low dose modulation techniques as appropriate to perform exam including the following: automated exposure control; use of iterative reconstruction technique; adjustment of the mA and/or kV according to patient size (this includes techniques or standardized protocols for targeted exams where dose is matched to indication/reason for exam). Discharge Plan Discharge Clinical Impression: Gastroenteritis Patient Disposition: Home Condition: Stable Instructions: Gastroenteritis (ED) Additional Instructions: Please drink plenty of fluids at home. Return to the emergency department if you develop high fevers, have persistent severe abdominal pain, or have bloody stools or vomit, as these could be signs of a more serious medical emergency. Return to the emergency department if you are unable to keep down liquids because of severe nausea/vomiting. Patient Language: Mozambican Prescriptions: New ondansetron 4 mg tablet,disintegrating 4 mg PO Q6H PRN (Reason: nausea and vomiting) Qty: 10 0RF dicyclomine 20 mg tablet 20 mg PO QID Qty: 20 0RF No Action buspirone 5 mg tablet 5 mg PO BID Qty: 60 3RF dextroamphetamine-amphetamine [Adderall XR] 20 mg capsule,extended release 24hr 20 mg PO DAILY Qty: 30 0RF sertraline 100 mg tablet 200 mg PO QHS Qty: 180 0RF Follow-up/Referrals: Alvarado Carson APRN [Primary Care Provider, Family Practice] - 1 Week
[2025-10-18 19:58] VITALS: BP 108/65; PULSE 102; RESP 20; O2SAT 98
[2025-10-18 20:12] VITALS: BP 108/65; PULSE 95; RESP 16; TEMP 37.1; O2SAT 97
== END 2025-10-18 20:14 | disposition home or self-care (01) ==
PROVIDERS: Emergency Provider Emergency Medicine; PCP Student in an Organized Health Care Education/Training Program
DX: K52.9 Noninfective gastroenteritis and colitis, unspecified (principal); Z20.822 Contact with and (suspected) exposure to COVID-19; R73.03 Prediabetes; N80.9 Endometriosis, unspecified; F41.9 Anxiety disorder, unspecified; F32.A Depression, unspecified; Z87.442 Personal history of urinary calculi; Z90.49 Acquired absence of other specified parts of digestive tract; Z87.891 Personal history of nicotine dependence; K76.0 Fatty (change of) liver, not elsewhere classified; N28.1 Cyst of kidney, acquired; Z79.899 Other long term (current) drug therapy
CPT/HCPCS: 36415; 74177; 80053; 81001; 83690; 85025; 87637; 96361; 96374; 96375; 99284; J2270; J2405; J7030; Q9967